=== PATIENT | female | born 1990 | race Caucasian/White ===

== ENCOUNTER → 2016-06-09 | Outpatient (CLI) | payer BC ==
[~2016-06-09] MED LIST: NAPR550T PO
--- OUTSIDE RECORDS SUMMARY | 2016-06-09 08:09 | XMS REPORT | Continuity of Care Document ---
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 font-family: [place]; font-size:10pt; text-decoration:underline">RR </span><span style="width: 35.18pt; text-indent:0pt; display:inline-block; -ql-jkgvksk-fpmuz:left; -aw- tabstop-pos:205pt"></span><span style="background-color:#ffffff; font-family: [place]; font-size:10pt; text-decoration:underline">MAP </span><span style="width: 26.43pt; text-indent:0pt; display:inline-block; -nk-msaehmc-cmumn:left; -aw- tabstop-pos:255pt"></span><span style="background-color:#ffffff; font-family: [place]; font-size:10pt; text-decoration:underline">O2 Sat </span></p><p style= "margin:0pt"><span style="background-color:#ffffff; font-family:[place]; font-size :10pt">36.6</span><span style="width:37.79pt; text-indent:0pt; display:inline- block; -zn-mdfruig-mmrqb:left; -ru-aroxpht-zxj:55pt"></span><span style= "background-color:#ffffff; font-family:[place]; font-size:10pt">105/60</span>< span style="width:20.94pt; text-indent:0pt; display:inline-block; -aw-tabstop- align:left; -js-zmzivpv-wuq:105pt"></span><span style="background-color:#ffffff ; font-family:[place]; font-size:10pt">58</span><span style="width:40pt; text- indent:0pt; display:inline-block; -nf-jxuobsa-wzcrk:left; -jv-xmaevtv-han:155pt "></span><span style="background-color:#ffffff; font-family:[place]; font-size: 10pt">16</span><span style="width:40pt; text-indent:0pt; display:inline-block; - vp-xhlzzqe-tjewm:left; -ij-ruqutfw-wqt:205pt"></span><span style="width:50pt; text-indent:0pt; display:inline-block; -cx-fdlhbmd-eanrv:left; -cn-wtkhhvu-thg: 255pt"></span><span style="background-color:#ffffff; font-family:[place]; font- size:10pt">100</span></p><p style="margin:0pt"><span style="font-family:[place]; font-size:10pt"> </span></p><p style="margin:0pt"><span style="background- color:#ffffff; font-family:[place]; font-size:10pt">Heart Rate - Pulse Ox: 58 bpm< /span></p><p style="margin:0pt"><span style="background-color:#ffffff; font- family:[place]; font-size:10pt">Oxygen Therapy: Room air </span></p><p style= "margin:0pt"><span style="font-family:[place]; font-size:10pt"></span></p><p style="margin:0pt"><span style="background-color:#ffffff; font-family:[place]; font-size:10pt; text-decoration:underline">Weight </span><span style="width: 94.02pt; text-indent:0pt; display:inline-block; -jx-rhpchde-tdena:left; -aw- tabstop-pos:125pt"></span><span style="background-color:#ffffff; font-family: [place]; font-size:10pt; text-decoration:underline">Height </span><span style= "width:36.19pt; text-indent:0pt; display:inline-block; -gm-odyypff-rirji:left; - vq-rgkmnfb-uee:190pt"></span><span style="background-color:#ffffff; font-family: [place]; font-size:10pt; text-decoration:underline">BMI </span><span style="width: 29.8pt; text-indent:0pt; display:inline-block; -al-wqsvcic-hsdim:left; -aw- tabstop-pos:240pt"></span><span style="background-color:#ffffff; font-family: [place]; font-size:10pt; text-decoration:underline">BSA </span></p><p style= "margin:0pt"><span style="background-color:#ffffff; font-family:[place]; font-size :10pt">64.800 kg (142.86 lbs)</span><span style="width:39.47pt; text-indent:0pt ; display:inline-block; -ge-tmqnlsy-pvxfm:left; -gz-qzvtqge-mzv:125pt"></span>< span style="background-color:#ffffff; font-family:[place]; font-size:10pt">169.2 cm</span><span style="width:29.28pt; text-indent:0pt; display:inline-block; -aw- tabstop-align:left; -sr-rqhaiqx-ixz:190pt"></span><span style="width:50pt; text- indent:0pt; display:inline-block; -ir-jpdpsej-liplp:left; -xm-kkuawpu-mti:240pt "></span></p><p style="margin:0pt"><span style="font-family:[place]; font-size: 10pt"></span></p><p style="margin:0pt"><span style="background-color:#ffffff; font-family:[place]; font-size:10pt">Scale: Stated weight </span></p><p style= "margin:0pt"><span style="background-color:#ffffff; font-family:[place]; font-size :10pt">Current BMI: 23 </span></p><p style="margin:0pt"><span style="font-family :[place]; font-size:10pt"></span></p><p style="line-height:12pt; margin:0pt">< span style="background-color:#ffffff; font-family:[place]; font-size:10pt"> Pulmonary: There are no labored respirations. </span></p><p style="line-height: 12pt; margin:0pt"><span style="background-color:#ffffff; font-family:[place] ; font-size:10pt">Cardiovascular: Rate regular as noted above. </span></p><p style="line-height:12pt; margin:0pt"><span style="background-color:#ffffff; font -family:[place]; font-size:10pt">Psychiatric: The patient is oriented to time, place, and person. Mood and affect are appropriate. </span></p><p style="line- height:12pt; margin:0pt"><span style="background-color:#ffffff; font-family :[place]; font-size:10pt">Gastrointestinal exam: Abdomen is soft, nondistended, without evidence of hepatosplenomegaly, masses, or tenderness.</span></p><p style="line-height:12pt; margin:0pt"><span style="background-color:#ffffff; font -family:[place]; font-size:10pt"></span></p><p style="margin:0pt"><span style= "font-family:[place]; font-size:10pt"></span></p><p style="line-height:12pt; margin:0pt"><span style="background-color:#ffffff; font-family:[place]; font-size: 10pt; font-weight:bold">ASSESSMENT / PLAN: </span></p><p style="margin:0pt">< span style="font-family:[place]; font-size:10pt"></span></p><p style="margin:0pt 0pt 0pt 36pt; text-indent:-18pt"><span style="background-color:#ffffff; font- family:Symbol; font-size:10pt"></span><span style="font:7.0pt '[employer]' "> </span><span style="background-color:#ffffff; font-family: [place]; font-size:10pt">Odynophagia of uncertain etiology</span></p><ul type= "disc" style="margin:0pt; padding-left:0pt"><li style="-ze-fhbs-placzj:'Symbol' ; -wa-weqy-capjfb:normal; -th-urutik-nkzdtt:''; background-color:#ffffff; font- family:serif; font-size:10pt; font-style:normal; rgze-dbfas-bkgiimvp:inside; margin:0pt 0pt 0pt 54pt; text-decoration:none; text-indent:-18pt"><span style= "font:7.0pt '[employer]'"> </span><span style="background-color:#ffffff; font-family:[place]; font-size:10pt">E</span><span style="background-color:#ffffff ; font-family:[place]; font-size:10pt">GD </span></li></ul><p style="line-height: 12pt; margin:0pt"><span style="font-family:[place]; font-size:10pt"></span></p>< p style="margin:0pt 0pt 0pt 36pt"><span style="background-color:#ffffff; font- family:[place]; font-size:10pt">Prior to the time of the procedure above described , I explained to the patient named above and to any person who has consented to the procedure on the patient's behalf, the nature, purpose, benefits, risks, including but not limited to bleeding, infection, perforation, the need for emergency surgery and the chance of missing a lesion, and alternative treatments. I have further discussed possible consequences of the procedure, the principal risks involved and possible complications. </span></p><p style= "margin:0pt 0pt 0pt 36pt"><span style="font-family:[place]; font-size:10pt"></ span></p><p style="margin:0pt 0pt 0pt 36pt"><span style="background-color:# ffffff; font-family:[place]; font-size:10pt">I plan the use of medication to achieve sedation for the period of the procedure with anticipated return to pre- procedure physiological status. I plan to administer medications via: IV. </span ></p><p style="margin:0pt 0pt 0pt 36pt"><span style="background-color:#ffffff; font-family:[place]; font-size:10pt">Post Sedation Plan: Recovery/Home. or Recovery/Inpatient</span></p><p style="line-height:12pt; margin:0pt"><span style="font-family:[place]; font-size:10pt"></span></p><p style="line-height:12pt ; margin:0pt"><span style="background-color:#ffffff; font-family:[place]; font- size:10pt">Co-morbidities:</span></p><p style="margin:0pt 0pt 0pt 36pt; text- indent:-18pt"><span style="background-color:#ffffff; font-family:Symbol; font- size:10pt"></span><span style="font:7.0pt '[employer]'"> </span>< span style="background-color:#ffffff; font-family:[place]; font-size:10pt"> See Problems and past medical history / procedures</span></p><p style="margin: 0pt"><span style="font-family:[place]; font-size:10pt"></span></p><p style= "margin:0pt"><span style="background-color:#ffffff; font-family:[place]; font-size :10pt">ASA: II</span></p><p style="margin:0pt"><span style="font-family:'[employer] [place]'; font-size:12pt"></span></p><p style="margin:0pt"><span style="font- family:'[employer] [place]'; font-size:12pt"> </span></p></div> [Electronically Signed on 11.20.2010 11:04 am]
Ty Jean MD
</br> 11/20/2010 [Electronically Signed on 11.20.2010 11:04 am] Ty Jean MD [facility] Amb Nurs Intake Event Amb Nurs Intake Event 2013 [facility] SMEG-Healthcare Goals 1 SMEG-Healthcare Goals 1 No No No Yes No No No No No Yes 06/07/2013 [facility] Office/Clinic Notes Office/Clinic Notes [facility] [address] [place] [address] PATIENT: SANIA CARBONE MR #: [id number] : 1990 DATE SEEN: 06/07/2013 Chief Complaint Patient here today has a cyst right arm pit. History of Present Illness Still has swelling in the one arm pit, is not doing well. Also here for sebaceous cyst removal under her ear. Doing pretty good otherwise. Review of Systems No recent weight gain or weight loss. No fever or chills. No sleep difficulty. No blurry vision or double vision. No eye pain or ear pain. No ringing in ears. No runny nose, sneezing, bloody nose or sore throat. No hoarseness. No high blood pressure, chest pain, shortness of breath. No dizzy spells. No swelling of feet or ankles. No leg cramps. No wheezing or coughing spells. No night sweats. No shortness of breath on exertion. No heartburn, bloating, belching. No nausea, vomiting, constipation or diarrhea. No rectal bleeding. No burning with urination. No urinary frequency. No vaginal discharge. No breast lumps or pain. No aching muscles or joints. No pain in hands or feet. No weakness or stiffness of joints.No easy bruising. No faintness, numbness, convulsions or tremors. No anemia or swollen lymph nodes. No polydipsia or polyuria. Allergies NKA Current Medications omeprazole 20 mg oral enteric coated capsule (omeprazole), 20 mg, 2 times a day Problems and Past Medical History Active Allergic Rhinitis, Seasonal or NOS Asthma, unspecified Nasal Fracture Primary focal hyperhidrosis of axilla Family History Cardiovascular Past Medical History Heart Disease Medical History: Grandparents High Blood Pressure Medical History: Grandparents Endocrine/Metabolic Past Med Hx Diabetes Medical History: Grandparents Family Status Father: Living Sister 2: Living Mother: Living Paternal Grandfather: Living Paternal Grandmother: Living Maternal Grandfather: Living Maternal Grandmother: Brother 1: Living Gastrointestinal Past Medical Hx Gastrointestinal, Other Medical History: Mother, IBS Genitourinary Past Medical Hx Genitourinary, Other Medical History: Sibling, VURD Immunologic Past Medical History Immunologic, Other Medical History: SCLERODERMA Musculoskeletal Past Medical Hx Arthritis Medical History: Grandparents, Sibling Musculoskeletal, Other Medical History: Sibling, JRA Neurological Past Medical History Frequent Headaches Medical History: Mother, Sibling, MIGRAINES Ocular Past Medical History Cataract Medical History: Grandparents Oncologic Past Medical History Oncologic, Other Medical History: Grandparents, bladder Lymphoma Medical History: Grandparents, CERVICAL CA. Respiratory Past Medical History Asthma Medical History: Sibling Respiratory, Other Medical History: Mother, SLEEP APNEA Family Status Reviewed With Patient: Review complete Procedure History X 2 SURGERIES LT ANKLE Esophagogastroduodenoscopy * at 11/20/2010. Social History Alcohol Use: Not applicable due to age Caffeine Use: Current Caffeine Type: Soda Caffeine Frequency: Weekly Current Tobacco Usage: Denies Recreational Drug Use: Denies Occupation: [employer] Physical Examination TEMP BP Pulse RR MAP O2 Sat 36.2 106/62 104 18 76.67 97 Weight Height BMI BSA 70.3 kg (154.98 lbs) 167.6 cm 25 kg/m2 1.8091 m2 Vital signs: Per chart. General: Well-hydrated, well-developed, well- nourished and in no acute distress. HEENT: Neck supple, no nodes; ears clear; TMs normal; eyes - conjunctivae clear, EOMI, PERRLA, fundi benign. Pharynx: Tongue and uvula midline, no exudate or injection. Chest: Respirations unlabored, lungs are clear. Heart: Regular rate and rhythm without murmur. Abdomen: Soft, nontender, no masses, organomegaly, guarding or rebound. Bowel sounds positive. Extremities: Nontender without edema. Pulses are 2+ and equal. Neurologic: Cranial nerves are intact, no motor or sensory deficits. Cerebellar function is normal. Mental status: Alert, oriented x3, cooperative. Skin: does have a little bit cystic acne. Has a sebaceous cyst under the right auricle, under the lobule. Has excessive sweating right arm pit. Impression 1. 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 2. Sebaceous Cyst (706.2) - presents for removal of cyst, have accomplished without difficulty. Plan Medication changes this visit: New Drysol 20% topical solution, 1 Apply, AT BEDTIME, Quantity: 60, Refills: 11 Risks, benefits of medications and/or treatment options explained. Alternatives and expected outcome discussed. Patient and/or family verbalized understanding. Patient instructed to follow up sooner than directed if new symptoms develop or current symptoms worsen. Otherwise follow up prn. TR: ANDREAS 851 JJ#: [id number] [Electronically Signed on 06.07.2013 11:22 AM]
Maria Teresa Galicia DO
</br> 06/07/2013 [Electronically Signed on 06.07.2013 11:22 AM] Maria Teresa Galicia DO [facility] GI Documents GI Documents < div><p style="margin:0pt"><span style="font-family:[place]; font-size:10pt"></ span></p><p style="margin:0pt"><span style="font-family:[place]; font-size:10pt& quot;>DATE OF SERVICE:</span><span style="background-color:#ffffff; font-family: [place]; font-size:10pt">11.20.2010</span><span style="font-family:[place]; font-size :10pt"> </span></p><p style="margin:0pt"><span style="font-family:[place]; font -size:10pt"></span></p><p style="margin:0pt"><span style="font-family:[place]; font-size:10pt">PREOPERATIVE DIAGNOSIS: </span></p><p style="margin:0pt 0pt 0pt 36pt; text-indent:-18pt"><span style="font-family:Symbol; font-size:10pt"></span ><span style="font:7.0pt '[employer] [place] [employer] [place]'"> </span><span style= "background-color:#ffffff; font-family:[place]; font-size:10pt">Odynophagia (Sx improving on PPI) </span></p><p style="margin:0pt"><span style="font-family: [place]; font-size:10pt"></span></p><p style="margin:0pt"><span style="font- family:[place]; font-size:10pt">POSTOPERATIVE DIAGNOSIS: </span></p><p style= "margin:0pt 0pt 0pt 36pt; text-indent:-18pt"><span style="background-color:# ffffff; font-family:Symbol; font-size:10pt"></span><span style="font:7.0pt '[employer] [place] [employer] [place]'"> </span><span style="background-color:#ffffff; font -family:[place]; font-size:10pt">Mild antral gastritis</span></p><ul type="disc" style="margin:0pt; padding-left:0pt"><li style="-ni-hajw-erdiwb:'Symbol'; -aw- font-weight:normal; -li-lonjeh-pjomtr:''; background-color:#ffffff; font-family: serif; font-size:12pt; font-style:normal; wiko-edxdu-rcdppcam:inside; margin: 0pt 0pt 0pt 54pt; text-decoration:none; text-indent:-18pt"><span style="font: 7.0pt '[employer] [place] [employer] [place]'"> </span><span style="font-family:[place] ; font-size:10pt">B</span><span style="background-color:#ffffff; font-family: [place]; font-size:10pt">x</span></li></ul><p style="margin:0pt 0pt 0pt 36pt; text -indent:-18pt"><span style="font-family:Symbol; font-size:10pt"></span><span style="font:7.0pt '[employer] [place] [employer] [place]'"> </span><span style="font- family:[place]; font-size:10pt">Normal </span><span style="background-color:# ffffff; font-family:[place]; font-size:10pt">esophagus</span></p><p style= "margin:0pt"><span style="font-family:[place]; font-size:10pt"></span></p><p style="margin:0pt"><span style="font-family:[place]; font-size:10pt; font-weight: normal">PROCEDURE</span><span style="font-family:[place]; font-size:10pt; font- weight:bold">: Esophagogastroduodenoscopy to the 3rd part of the duodenum</span> <span style="background-color:#ffffff; font-family:[place]; font-size:10pt; font- weight:bold"> with biopsy</span></p><p style="margin:0pt"><span style="font- family:[place]; font-size:10pt"></span></p><p style="margin:0pt"><span style= "font-family:[place]; font-size:10pt">SEDATION: Demerol 75mg, Versed </span><span style="background-color:#ffffff; font-family:[place]; font-size:10pt">3</span ><span style="font-family:[place]; font-size:10pt">mg.</span></p><p style="margin: 0pt"><span style="font-family:[place]; font-size:10pt"></span></p><p style= "margin:0pt"><span style="font-family:[place]; font-size:10pt">PREOPERATIVE DISCUSSION: Prior to the time of the procedure above described, I explained to the patient named above and to any person who has consented to the procedure on the patient</span><span style="font-family:[place]; font-size:10pt">s behalf, the nature, purpose, risks, and alternative treatments. I have further discussed possible consequences of the procedure, the principal risks involved and possible complications.</span></p><p style="margin:0pt"><span style="font-family :[place]; font-size:10pt"></span></p><p style="margin:0pt"><span style="font- family:[place]; font-size:10pt">DESCRIPTION OF PROCEDURE: Following sedation, the lubricated endoscope was advanced under direct vision through to the 3rd part of the duodenum. The bulb and the 2nd and 3rd parts of the duodenum were evaluated. The scope was withdrawn into the antrum. The prepyloric channel and antrum were evaluated. Retroflexion was then performed with the lesser curvature , greater curvature, fundus, cardia and body being evaluated. The gastroesophageal junction, esophagus and remainder of the esophagus were also evaluated. </span></p><p style="margin:0pt"><span style="font-family:[place]; font -size:10pt"></span></p><p style="margin:0pt"><span style="font-family:[place]; font-size:10pt">The study was significant for: </span></p><p style="margin:0pt 0pt 0pt 36pt; text-indent:-18pt"><span style="background-color:#ffffff; font- family:Symbol; font-size:10pt"></span><span style="font:7.0pt '[employer] [place] [employer]' "> </span><span style="background-color:#ffffff; font-family: [place]; font-size:10pt">Mild antral gastritis</span></p><ul type="disc" style="margin:0pt; padding-left:0pt"><li style="-ki-isir-yzbuhc:'Symbol'; -aw- font-weight:normal; -ha-txyjfk-emnmur:''; background-color:#ffffff; font-family: serif; font-size:12pt; font-style:normal; fjgy-ltflf-hskrtblj:inside; margin: 0pt 0pt 0pt 54pt; text-decoration:none; text-indent:-18pt"><span style="font: 7.0pt '[employer]'"> </span><span style="font- family:[place]; font-size:10pt">B</span><span style="background-color:#ffffff; font-family:[place]; font-size:10pt">x</span></li></ul><p style="margin:0pt">< span style="font-family:[place]; font-size:10pt">The esophagus </span><span style= "background-color:#ffffff; font-family:[place]; font-size:10pt">was normal.</span> </p><p style="margin:0pt"><span style="font-family:[place]; font-size:10pt"></ span></p><p style="margin:0pt"><span style="font-family:[place]; font-size:10pt"> RECOMMENDATIONS: </span></p><p style="margin:0pt"><span style="font-family:[place] ; font-size:10pt"> </span></p><p style="margin:0pt 0pt 0pt 47.25pt; text-indent:-29.25pt"><span style="font-family:[place]; font-size:10pt; font-style :normal; text-decoration:none">1.</span><span style="font:7.0pt '[employer] '"> </span><span style="font-family:[place]; font-size:10pt">Diet:</ span><span style="background-color:#ffffff; font-family:[place]; font-size:10pt"> Soft</span></p><p style="margin:0pt 0pt 0pt 47.25pt; text-indent:-29.25pt"> <span style="font-family:[place]; font-size:10pt; font-style:normal; text- decoration:none">2.</span><span style="font:7.0pt '[employer]'"> </span><span style="font-family:[place]; font-size:10pt">Follow up:</span ><span style="background-color:#ffffff; font-family:[place]; font-size:10pt"> 4 weeks</span></p><p style="margin:0pt 0pt 0pt 47.25pt; text-indent:-29.25pt">< span style="font-family:[place]; font-size:10pt; font-style:normal; text- decoration:none">3.</span><span style="font:7.0pt '[employer]'"> </span><span style="background-color:#ffffff; font-family:[place]; font- size:10pt">Prilosec OTC 20mg po daily for 6 weeks</span></p><p style="margin:0pt "><span style="font-family:[place]; font-size:10pt"></span></p><p style="margin: 0pt"><span style="font-family:[place]; font-size:10pt">cc:</span><span style= "background-color:#ffffff; font-family:[place]; font-size:10pt"> Maria Teresa Galicia</span ></p></div> [Electronically Signed on 11.20.2010 11:26 am]
Ty Jean MD
</br> 11/20/2010 [Electronically Signed on 11.20.2010 11:26 am] Ty Jean MD [facility] Procedure Reports Procedure Reports [facility] [address] [id number] PATIENT: SANIA CARBONE MR #: [id number] : 1990 DATE SEEN: 06/07/2013 Procedure: 4 mm. punch biopsy sebaceous cyst under right auricle After informed consent received was sterilely prepped in usual fashion. Anesthetized with 0.5% Marcaine with Epinephrine. Using a 4 mm. punch biopsy a full thickness biopsy was taken and encompassed actually two small cysts and a couple of other sebaceous glands that were hypertrophied were removed with further sharp dissection, sharp curved Iris scissors. No complications noted. No bleeding. It was irrigated. No further cysts were seen. It was then closed with two 4-0 Prolene sutures in simple interrupted fashion. Sutures out in a week. No tissue for pathology. Aftercare instructions given. TR: ANDREAS 851 JJ#: [id number] [Electronically Signed on 06.07.2013 11:22 AM]
Maria Teresa Galicia DO
</br> 06/07/2013 [Electronically Signed on 06.07.2013 11:22 AM] Maria Teresa Galicia DO [facility] GI Documents GI Documents [facility] GI Patient Name: Sania Carbone Procedure Date: 11/20/2010 10:49:34 AM Date of : 1990 Age: 20 Gender: Female Attending MD: TY DIAZ MD, FACS Procedure: Upper GI endoscopy with biopsy Indications: Odynophagia Referring MD: MARIA TERESA GALICIA DO Medicines: Midazolam 3 mg IV, Meperidine 75 mg IV Complications: No immediate complications Procedure: -Prior to the procedure, a History and Physical was performed. Patient medications, allergies and sensitivities have been reviewed. The risks and benefits of the procedure and the sedation options and risks were discussed with the patient and informed consent was obtained. Pre-procedure physical examination revealed no contraindictions to sedation. -After obtaining informed consent, the endoscope was passed under direct vision. Throughout the procedure, the patient's blood pressure, pulse, and oxygen saturations were monitored continuously. The Endoscope was introduced through the mouth, and advanced to the third part of duodenum. The upper GI endoscopy was accomplished without difficulty. The patient tolerated the procedure well. Findings: Localized mild inflammation was found in the gastric antrum. Biopsies were taken with a cold forceps for histology. The esophagus was normal. The examined duodenum was normal. Impression: - Gastritis. This was biopsied. - Normal esophagus. - Normal examined duodenum. Recommendation: - Use Prilosec (omeprazole) at 20 mg by mouth once a day for 6 weeks. - Return to endoscopist in 4 weeks. TY JEAN MD, FACS Signed Date: 11/20/2010 11:22:41 AM Number of Addenda: 0 This report has been signed electronically. Procedure images and/or a copy of the operative report have been provided to the patient. Note Initiated On: 11/20/2010 10:49:34 AM 11/20/2010 [facility] Amb Nurs Intake w Hx Event Amb Nurs Intake w Hx Event 06/02/2013 [facility] SMEG-Healthcare Goals 1 SMEG-Healthcare Goals 1 No No No Yes No No No No No Yes 06/02/2013 [facility] Level of Functioning Grid-Clinic Level of Functioning Grid-Clinic 06/02/2013 [facility] Ambulatory Depart Summary Ambulatory Depart Summary [facility] [address] [place] [address] [phone] PERSON INFORMATION Name SANIA CARBONE Age 23 Years 1990 12:00 AM Sex Female Language Swedish PCP Maria Teresa Galicia, DO Marital Status Single Time Zone Visit Id Visit Reason LUMP UNDER EAR/TERE UNDER ONE ARM PIT Specialty Enc Type [facility] Med Service PHYSOFF-Physician Office Referred by [facility] Discharge Process Discharge Tracking Id Checkout Checkin Acuity Dispo Type Arrival 06/02/2013 9:43 AM Reg Status LOS Address: [address] [place] [id number] PHYS DOC NOTES PROVIDER INFORMATION VITALS INFORMATION Height: 5ft 6.0in Weight: 153.00 lbs (BMI: 24.7) Temp: 97.2 F Heart Rate: 69 Respiratory: 18 O2 Sat: 99 BP: 110/62 LOCATION INFORMATION Arrival Nurse Unit Room Bed 06/02/2013 9:47 AM ORDERS INFORMATION Start Time Order Type Status Stop Time Provider 06/02/2013 10:29 AM Office Visit Level 4 Est - 94585 Evaluation and Management Completed 06/02/2013 10:29 AM Maria Teresa Galicia DO 06/02/2013 10:33 AM Flu Trivalent Vaccine, 3 Yrs & Older W/Phy Nursing Program Manager [facility] Completed 06/02/2013 10:35 AM Maria Teresa Galicia DO 06/02/2013 10:33 AM Flu Trivalent Vaccine, 3 Yrs & Older -Clinic Clinic Charge Completed 06/02/2013 10:34 AM Maria Teresa Galicia DO 06/02/2013 10:33 AM First Component Immunization Admin w/Phy Nursing Program Manager, Any Route 18 & Under - Clinic Clinic Charge Completed 06/02/2013 10:34 AM Maria Teresa Galicia DO MEDICAL INFORMATION Allergy Info: NKA HOME MEDICATIONS omeprazole 20 mg oral enteric coated capsule 20 mg, Oral, 2 times a day, 90 Day(s), 3 Refills Not taking: didnt need it anymore You have indicated that you are not taking one or more of your medications as prescribed. Please contact your prescribing provider as soon as possible to discuss these medications. DISCHARGE INFORMATION Discharge Disposition: Discharge Location: PATIENT EDUCATION INFORMATION Instructions: Understanding Neck Problems; SEBACEOUS CYST Follow up: DIAGNOSIS Cervical Strain; Concussion; Sebaceous Cyst; Vaccination for Influenza 06/02/2013 [facility] Office/Clinic Notes Office/Clinic Notes Patient: SANIA CARBONE Age: 20 years Sex: Female : 1990 Associated Diagnoses: None Author: Ava Walter FNP-BC Health Status Allergies: . Allergic Reactions (All) NKA Current medications: . Prescriptions and Home Medications omeprazole (omeprazole 20 mg oral enteric coated capsule), 20 mg, 1 Cap, PO, BID , 180 Cap Problem list: . Medical Allergic Rhinits, Seasonal or NOS / ICD-9-CM 477.9 / Confirmed Asthma, unspecified / ICD-9-CM 493.90 / Confirmed Nasal Fracture / ICD-9-CM 802.0 / Confirmed Subjective Problem: HPI: Pt here today with sore throat x 4 days and sinus DC. She had strep a couple weeks ago and was treated with Pen VK and did get better but now sx have returned. Objective VS/Measurements Documented vital signs: Blood Pressure ( Systolic 102 mmHg, Diastolic 56 mmHg ), Pulse ( 84 beats per min ), Respiration ( Within normal limits ), Temperature ( Oral 98.4 degrees Fahrenheit ) Point of care testing General: Alert and oriented, No acute distress. Integumentary: Warm, Dry. Eye: Normal conjunctiva. HENT: Normocephalic, Tympanic membranes are clear, Oral mucosa is moist. Throat: Tonsils ( Bilateral tonsils, Cryptic, Enlarged, Erythematous ), Pharynx ( Posterior, Erythematous ). Neck: Supple, No thyromegaly. Lymph nodes: Bilateral, Anterior triangle, Soft, Tender. Cardiovascular: Normal rate, Regular rhythm, No murmur. Respiratory: Lungs are clear to auscultation, Respirations are non-labored. Musculoskeletal: Normal range of motion, Normal gait. Psychiatric: Cooperative, Appropriate mood & affect. Plan Diagnosis Acute pharyngitis NOS (ICD9 462). Tonsillitis NOS (ICD9 463). Plan PowerOrders. Pharmacy: [facility] Z-Sp (Ordered): See Instructions, as directed on package labeling, 6 Tab PowerOrders. Patient Care -Clinic: [facility] Rapid Strep -Clinic (Ordered): 03/17/2011 10:59, Acute pharyngitis NOS [facility] Quick Care Visits -Clinic (Completed): 03/17/2011 10:59, Tonsillitis NOS Counseled: Patient, Regarding diagnosis, Regarding treatment, Regarding medications. Patient Instructions: Increase fluids and rest. If symptoms increase or do not improve, follow up with PCP, UCC or ER in 2-3 days.. 03/17/2011 [facility] Office/Clinic Notes Office/Clinic Notes <div><p style="margin:0pt; text-align:center"><span style= "background-color:#ffffff; font-family:[place]; font-size:10pt; font-weight:bold"> [facility]</span></p><p style="margin:0pt; text-align: center"><span style="background-color:#ffffff; font-family:[place]; font-size:10pt ; font-weight:bold">[facility]</span></p><p style="margin:0pt; text -align:center"><span style="background-color:#ffffff; font-family:[place]; font- size:10pt; font-weight:bold">[place] [address]</span></p><p style="margin: 0pt; text-align:center"><span style="background-color:#ffffff; font-family:[place] ; font-size:10pt; font-weight:bold">[phone] </span></p><p style="margin:0pt; text-align:center"><span style="font-family:[place]; font-size: 10pt; font-weight:bold"></span></p><p style="margin:0pt"><span style= "background-color:#ffffff; font-family:[place]; font-size:10pt">PATIENT: SANIA CARBONE</span></p><p style="margin:0pt"><span style="background-color:# ffffff; font-family:[place]; font-size:10pt">MR #: [id number]</span></p><p style= "margin:0pt"><span style="background-color:#ffffff; font-family:[place]; font -size:10pt"> </span></p><p style="margin:0pt"><span style= "background-color:#ffffff; font-family:[place]; font-size:10pt">: 11/03/ 1990</span></p><p style="margin:0pt"><span style="background-color:#ffffff; font -family:[place]; font-size:10pt">DATE SEEN: 12/22/2010</span></p><p style="margin: 0pt"><span style="font-family:[place]; font-size:10pt"></span></p><p style= "margin:0pt"><span style="background-color:#ffffff; font-family:[place]; font-size :10pt; font-weight:bold">Chief Complaint</span></p><p style="margin:0pt"><span style="background-color:#ffffff; font-family:[place]; font-size:10pt">Patient is here today for possible fever and sore throat.</span></p><p style="margin:0pt "><span style="font-family:[place]; font-size:10pt"></span></p><p style="margin: 0pt"><span style="font-family:[place]; font-size:10pt"></span></p><p style= "margin:0pt"><span style="background-color:#ffffff; font-family:[place]; font-size :10pt; font-weight:bold">History of Present Illness</span></p><p style= "margin:0pt"><span style="background-color:#ffffff; font-family:[place]; font-size :10pt">S</span><span style="background-color:#ffffff; font-family:[place]; font- size:10pt">arajose is sick, 3 days of not able to swallow, throat is just killing her. Fever, little cough, little headache, arthralgias, myalgias, had no vomiting, no diarrhea, no rash. Has been on Doxycycline for acne. No one else is ill around her. Has been nauseated though and has abdominal pain. </span></p> <p style="margin:0pt"><span style="font-family:[place]; font-size:10pt"></span></ p><p style="margin:0pt"><span style="background-color:#ffffff; font-family: [place]; font-size:10pt; text-decoration:underline">Pain Assessment</span></p><p style="margin:0pt"><span style="background-color:#ffffff; font-family:[place]; font-size:10pt">Cognitive Status: Independent, decisions consistent/reasonable</ span></p><p style="margin:0pt"><span style="background-color:#ffffff; font- family:[place]; font-size:10pt">Intensity: 8</span></p><p style="margin:0pt">< span style="background-color:#ffffff; font-family:[place]; font-size:10pt"> Location: Throat</span></p><p style="margin:0pt"><span style="font-family:[place] ; font-size:10pt"></span></p><p style="margin:0pt"><span style="background- color:#ffffff; font-family:[place]; font-size:10pt; font-weight:bold">Review of Systems </span></p><p style="margin:0pt"><span style="background-color:#ffffff; font-family:[place]; font-size:10pt">No recent weight gain or weight loss. No sleep difficulty. No blurry vision or double vision. No eye pain or ear pain. No ringing in ears. No runny nose, sneezing, bloody nose. No hoarseness. No high blood pressure, chest pain, shortness of breath. No dizzy spells. No swelling of feet or ankles. No leg cramps. No wheezing spells. No night sweats. No shortness of breath on exertion. No heartburn, bloating, belching. No nausea , vomiting, constipation or diarrhea. No rectal bleeding. No burning with urination. No urinary frequency. No vaginal discharge. No breast lumps or pain. No aching muscles or joints. No pain in hands or feet. No weakness or stiffness of joints. No itching or burning of skin. No easy bruising. No changes in moles. No faintness, numbness, convulsions or tremors. No anemia or swollen lymph nodes. No polydipsia or polyuria.</span></p><p style="margin:0pt"><span style="font-family:[place]; font-size:10pt"></span></p><p style="margin:0pt">< span style="background-color:#ffffff; font-family:[place]; font-size:10pt; font- weight:bold">Allergies</span></p><p style="margin:0pt"><span style="background- color:#ffffff; font-family:[place]; font-size:10pt">NKA</span></p><p style="margin :0pt"><span style="font-family:[place]; font-size:10pt"></span></p><p style=&quot ;margin:0pt"><span style="background-color:#ffffff; font-family:[place]; font-size :10pt; font-weight:bold">Current Medications</span></p><p style="margin:0pt">< span style="background-color:#ffffff; font-family:[place]; font-size:10pt"> doxycycline hyclate 100 mg oral capsule (doxycycline), 100 mg 1 Cap, Every 24 hours</span></p><p style="margin:0pt"><span style="background-color:#ffffff; font-family:[place]; font-size:10pt">omeprazole 20 mg oral enteric coated capsule (omeprazole), 20 mg 1 Cap, 2 times a day</span></p><p style="margin:0pt"><span style="font-family:[place]; font-size:10pt"></span></p><p style="margin:0pt">< span style="background-color:#ffffff; font-family:[place]; font-size:10pt; font- weight:bold">Problems and Past Medical History</span></p><p style="margin:0pt "><span style="background-color:#ffffff; font-family:[place]; font-size:10pt; text -decoration:underline">Active</span></p><p style="margin:0pt"><span style= "background-color:#ffffff; font-family:[place]; font-size:10pt">Allergic Rhinitis , Seasonal or NOS</span></p><p style="margin:0pt"><span style="background-color: #ffffff; font-family:[place]; font-size:10pt">Asthma, unspecified</span></p><p style="margin:0pt"><span style="background-color:#ffffff; font-family:[place]; font-size:10pt">Nasal Fracture</span></p><p style="margin:0pt"><span style="font -family:[place]; font-size:10pt"></span></p><p style="margin:0pt"><span style= "background-color:#ffffff; font-family:[place]; font-size:10pt; font-weight:bold"> Family History</span></p><p style="margin:0pt"><span style="background-color:# ffffff; font-family:[place]; font-size:10pt; text-decoration:underline">Oncologic Past Medical History</span></p><p style="margin:0pt"><span style="background- color:#ffffff; font-family:[place]; font-size:10pt">Lymphoma Medical History: Grandparents, CERVICAL CA.</span></p><p style="margin:0pt"><span style= "background-color:#ffffff; font-family:[place]; font-size:10pt">Oncologic, Other Medical History: Grandparents, bladder</span></p><p style="margin:0pt"><span style="background-color:#ffffff; font-family:[place]; font-size:10pt; text- decoration:underline">Immunologic Past Medical History</span></p><p style= "margin:0pt"><span style="background-color:#ffffff; font-family:[place]; font-size :10pt">Immunologic, Other Medical History: SCLERODERMA</span></p><p style= "margin:0pt"><span style="background-color:#ffffff; font-family:[place]; font-size :10pt; text-decoration:underline">Neurological Past Medical History</span></p>< p style="margin:0pt"><span style="background-color:#ffffff; font-family:[place]; font-size:10pt">Frequent Headaches Medical History: Mother, Sibling, MIGRAINES</span></p><p style="margin:0pt"><span style="background-color:#ffffff ; font-family:[place]; font-size:10pt; text-decoration:underline">Endocrine/ Metabolic Past Med Hx</span></p><p style="margin:0pt"><span style="background- color:#ffffff; font-family:[place]; font-size:10pt">Diabetes Medical History: Grandparents</span></p><p style="margin:0pt"><span style="background-color:# ffffff; font-family:[place]; font-size:10pt; text-decoration:underline"> Musculoskeletal Past Medical Hx</span></p><p style="margin:0pt"><span style= "background-color:#ffffff; font-family:[place]; font-size:10pt">Arthritis Medical History: Grandparents, Sibling</span></p><p style="margin:0pt"><span style= "background-color:#ffffff; font-family:[place]; font-size:10pt">Musculoskeletal, Other Medical History: Sibling, JRA</span></p><p style="margin:0pt"><span style= "background-color:#ffffff; font-family:[place]; font-size:10pt; text-decoration: underline">Genitourinary Past Medical Hx</span></p><p style="margin:0pt"><span style="background-color:#ffffff; font-family:[place]; font-size:10pt"> Genitourinary, Other Medical History: Sibling, VURD</span></p><p style="margin: 0pt"><span style="background-color:#ffffff; font-family:[place]; font-size:10pt; text-decoration:underline">Gastrointestinal Past Medical Hx</span></p><p style= "margin:0pt"><span style="background-color:#ffffff; font-family:[place]; font-size :10pt">Gastrointestinal, Other Medical History: Mother, IBS</span></p><p style= "margin:0pt"><span style="background-color:#ffffff; font-family:[place]; font-size :10pt; text-decoration:underline">Respiratory Past Medical History</span></p><p style="margin:0pt"><span style="background-color:#ffffff; font-family:[place]; font-size:10pt">Asthma Medical History: Sibling</span></p><p style="margin:0pt"> <span style="background-color:#ffffff; font-family:[place]; font-size:10pt"> Respiratory, Other Medical History: Mother, SLEEP APNEA</span></p><p style= "margin:0pt"><span style="background-color:#ffffff; font-family:[place]; font-size :10pt; text-decoration:underline">Cardiovascular Past Medical History</span></p> <p style="margin:0pt"><span style="background-color:#ffffff; font-family:[place]; font-size:10pt">Heart Disease Medical History: Grandparents</span></p><p style= "margin:0pt"><span style="background-color:#ffffff; font-family:[place]; font-size :10pt">High Blood Pressure Medical History: Grandparents</span></p><p style= "margin:0pt"><span style="background-color:#ffffff; font-family:[place]; font-size :10pt; text-decoration:underline">Ocular Past Medical History</span></p><p style ="margin:0pt"><span style="background-color:#ffffff; font-family:[place]; font- size:10pt">Cataract Medical History: Grandparents</span></p><p style="margin:0pt "><span style="font-family:[place]; font-size:10pt"></span></p><p style="margin: 0pt"><span style="background-color:#ffffff; font-family:[place]; font-size:10pt; font-weight:bold">Procedure History</span></p><p style="margin:0pt"><span style= "background-color:#ffffff; font-family:[place]; font-size:10pt">X 2 SURGERIES LT ANKLE</span></p><p style="margin:0pt"><span style="background-color:#ffffff; font-family:[place]; font-size:10pt">Esophagogastroduodenoscopy * at 11/20/2010.</ span></p><p style="margin:0pt"><span style="font-family:[place]; font-size:10pt">& #xa0;</span></p><p style="margin:0pt"><span style="background-color:#ffffff; font-family:[place]; font-size:10pt; font-weight:bold">Social History</span></p>< p style="margin:0pt"><span style="background-color:#ffffff; font-family: [place]; font-size:10pt">Current Tobacco Usage: Denies</span></p><p style="margin: 0pt"><span style="background-color:#ffffff; font-family:[place]; font-size:10pt"> Caffeine Use: Current</span></p><p style="margin:0pt"><span style="background- color:#ffffff; font-family:[place]; font-size:10pt">Caffeine Type: Soda</span>< /p><p style="margin:0pt"><span style="background-color:#ffffff; font-family: [place]; font-size:10pt">Caffeine Frequency: Weekly</span></p><p style="margin:0pt "><span style="background-color:#ffffff; font-family:[place]; font-size:10pt"> Recreational Drug Use: Denies</span></p><p style="margin:0pt"><span style= "background-color:#ffffff; font-family:[place]; font-size:10pt">Alcohol Use: Not applicable due to age</span></p><p style="margin:0pt"><span style="font-family: [place]; font-size:10pt"></span></p><p style="margin:0pt"><span style="background -color:#ffffff; font-family:[place]; font-size:10pt; font-weight:bold">Physical Examination</span></p><p style="margin:0pt"><span style="background-color:# ffffff; font-family:[place]; font-size:10pt; text-decoration:underline">TEMP </ span><span style="width:25.46pt; text-indent:0pt; display:inline-block; -aw- tabstop-align:left; -pw-pduxjuq-vpf:55pt"></span><span style="background-color:# ffffff; font-family:[place]; font-size:10pt; text-decoration:underline">BP </span> <span style="width:36.44pt; text-indent:0pt; display:inline-block; -aw-tabstop- align:left; -uu-oyycryd-qfr:105pt"></span><span style="background-color:#ffffff ; font-family:[place]; font-size:10pt; text-decoration:underline">Pulse </span>< span style="width:27.08pt; text-indent:0pt; display:inline-block; -aw-tabstop- align:left; -ot-kyfxevb-aon:155pt"></span><span style="background-color:#ffffff ; font-family:[place]; font-size:10pt; text-decoration:underline">RR </span><span style="width:35.18pt; text-indent:0pt; display:inline-block; -eu-alsxiif-ourcr: left; -kz-loxybek-rpd:205pt"></span><span style="background-color:#ffffff; font- family:[place]; font-size:10pt; text-decoration:underline">MAP </span><span style="width:26.43pt; text-indent:0pt; display:inline-block; -yp-oedclpb-ilpiu: left; -eo-mqgyzno-ipe:255pt"></span><span style="background-color:#ffffff; font- family:[place]; font-size:10pt; text-decoration:underline">O2 Sat </span></p><p style="margin:0pt"><span style="background-color:#ffffff; font-family:[place]; font-size:10pt">39.1</span><span style="width:37.79pt; text-indent:0pt; display: inline-block; -ao-adifdhw-nidbs:left; -ix-lmnydqn-yjm:55pt"></span><span style= "background-color:#ffffff; font-family:[place]; font-size:10pt">112/72</span>< span style="width:20.94pt; text-indent:0pt; display:inline-block; -aw-tabstop- align:left; -is-jvtdtox-ynk:105pt"></span><span style="background-color:#ffffff ; font-family:[place]; font-size:10pt">135</span><span style="width:35pt; text- indent:0pt; display:inline-block; -ka-kriycom-trjgi:left; -zl-olvulsk-ywo:155pt "></span><span style="background-color:#ffffff; font-family:[place]; font-size: 10pt">18</span><span style="width:40pt; text-indent:0pt; display:inline- block; -kv-udgxipl-gumji:left; -wl-werrrqm-umn:205pt"></span><span style= "background-color:#ffffff; font-family:[place]; font-size:10pt">85.33</span><span style="width:27.79pt; text-indent:0pt; display:inline-block; -pl-wmqagak-qpstk: left; -ld-dgbanbu-xrn:255pt"></span><span style="background-color:#ffffff; font- family:[place]; font-size:10pt">96</span></p><p style="margin:0pt"><span style= "font-family:[place]; font-size:10pt"></span></p><p style="margin:0pt"><span style="background-color:#ffffff; font-family:[place]; font-size:10pt">Blood Pressure Location: Right arm </span></p><p style="margin:0pt"><span style="font- family:[place]; font-size:10pt"></span></p><p style="margin:0pt"><span style ="background-color:#ffffff; font-family:[place]; font-size:10pt; text-decoration: underline">Weight </span><span style="width:94.02pt; text-indent:0pt; display: inline-block; -ps-pcledvd-mkmpb:left; -tb-xvrkkrv-quq:125pt"></span><span style= "background-color:#ffffff; font-family:[place]; font-size:10pt; text-decoration: underline">Height </span><span style="width:36.19pt; text-indent:0pt; display: inline-block; -na-amyfbxw-aisne:left; -kk-fjwkdqc-lww:190pt"></span><span style= "background-color:#ffffff; font-family:[place]; font-size:10pt; text-decoration: underline">BMI </span><span style="width:29.8pt; text-indent:0pt; display:inline -block; -qs-ndairgp-ffzhz:left; -zv-ftxqkwc-ccz:240pt"></span><span style= "background-color:#ffffff; font-family:[place]; font-size:10pt; text-decoration: underline">BSA </span></p><p style="margin:0pt"><span style="background-color:# ffffff; font-family:[place]; font-size:10pt">64.700 kg (142.64 lbs)</span><span style="width:39.47pt; text-indent:0pt; display:inline-block; -bs-hvzcacp-rcxfp: left; -sk-mzzgmqx-snh:125pt"></span><span style="background-color:#ffffff; font- family:[place]; font-size:10pt">168.9 cm</span><span style="width:29.28pt; text- indent:0pt; display:inline-block; -lw-slgncrs-brpme:left; -zc-bsocsmf-otv:190pt "></span><span style="background-color:#ffffff; font-family:[place]; font-size: 10pt">22.7</span><span style="width:32.79pt; text-indent:0pt; display:inline- block; -ub-dgplxyr-axihn:left; -zg-fqsgbqq-buv:240pt"></span><span style= "background-color:#ffffff; font-family:[place]; font-size:10pt">1.7423 m2</span&gt ;</p><p style="margin:0pt"><span style="font-family:[place]; font-size:10pt"></ span></p><p style="margin:0pt"><span style="background-color:#ffffff; font- family:[place]; font-size:10pt">Vital signs: Per chart. General: Well-hydrated, well-developed, well-nourished and in no acute distress. HEENT: Neck supple, no nodes; ears clear; TMs normal; eyes - conjunctivae clear, EOMI, PERRLA, fundi benign. Pharynx: Tongue and uvula midline, </span><span style="background-color: #ffffff; font-family:[place]; font-size:10pt">massive, </span><span style= "background-color:#ffffff; font-family:[place]; font-size:10pt">enlarged, injec</ span><span style="background-color:#ffffff; font-family:[place]; font-size:10pt"> jj tonsils with exudate. Anterior nodes, little posterior lymphadenopathy. </ span><span style="background-color:#ffffff; font-family:[place]; font-size:10pt"> Chest: Respirations unlabored, lungs are clear. Heart: Regular rate and rhythm without murmur. Abdomen: Soft, nontender, no masses, guarding or rebound. </span ><span style="background-color:#ffffff; font-family:[place]; font-size:10pt"> Little bit enlargement of liver. </span><span style="background-color:#ffffff; font-family:[place]; font-size:10pt">Bowel sounds positive. Extremities: Nontender without edema. Pulses are 2+ and equal. Neurologic: Cranial nerves are intact, no motor or sensory deficits. Cerebellar function is normal. Mental status: Alert, oriented x3, cooperative. Skin: Without rash.</span></p><p style= "margin:0pt"><span style="font-family:[place]; font-size:10pt"></span></p><p style="margin:0pt"><span style="background-color:#ffffff; font-family:[place]; font-size:10pt; font-weight:bold">Impression</span></p><p style="margin:0pt">< span style="background-color:#ffffff; font-family:[place]; font-size:10pt"> Tonsillitis NOS (463)</span><span style="background-color:#ffffff; font-family: [place]; font-size:10pt"> exudative </span></p><p style="margin:0pt"><span style= "background-color:#ffffff; font-family:[place]; font-size:10pt">DEHYDRATION ( 276.51)</span></p><p style="margin:0pt"><span style="background-color:#ffffff; font-family:[place]; font-size:10pt">Lymphadenopathy (785.6)</span></p><p style= "margin:0pt"><span style="background-color:#ffffff; font-family:[place]; font-size :10pt">HEPATOMEGALY (789.1)</span></p><p style="margin:0pt"><span style= "background-color:#ffffff; font-family:[place]; font-size:10pt">Acute pharyngitis NOS (462)</span><span style="background-color:#ffffff; font-family:[place]; font- size:10pt"> - strep test negative</span></p><p style="margin:0pt"><span style= "font-family:[place]; font-size:10pt"></span></p><p style="margin:0pt"><span style="font-family:[place]; font-size:10pt"></span></p><p style="margin:0pt">< span style="font-family:[place]; font-size:10pt"></span></p><p style="margin:0pt "><span style="background-color:#ffffff; font-family:[place]; font-size:10pt; font -weight:bold">Plan</span></p><p style="margin:0pt"><span style="background-color :#ffffff; font-family:[place]; font-size:10pt; font-weight:bold">Medication changes this visit:</span></p><p style="margin:0pt"><span style="background- color:#ffffff; font-family:[place]; font-size:10pt; text-decoration:underline">New </span></p><p style="margin:0pt"><span style="background-color:#ffffff; font- family:[place]; font-size:10pt">Lortab Elixir 7.5 mg-500 mg/15 mL oral elixir, 15 mL, PRN, Q6H, Quantity: 240, Refills: 0</span></p><p style="margin:0pt">< span style="background-color:#ffffff; font-family:[place]; font-size:10pt"> azithromycin 500 mg oral tablet, 500 mg=1 Tab, daily, 6 Day(s), Quantity: 6, Refills: 0</span></p><p style="margin:0pt"><span style="font-family:[place]; font- size:10pt"></span></p><p style="margin:0pt"><span style="background-color:# ffffff; font-family:[place]; font-size:10pt; font-weight:bold">Orders this visit:< /span></p><p style="margin:0pt"><span style="background-color:#ffffff; font- family:[place]; font-size:10pt">-Auto Diff</span></p><p style="margin:0pt">< span style="background-color:#ffffff; font-family:[place]; font-size:10pt">-RBC Morphology</span></p><p style="margin:0pt"><span style="background-color:#ffffff ; font-family:[place]; font-size:10pt">CBC with Diff</span></p><p style="margin: 0pt"><span style="background-color:#ffffff; font-family:[place]; font-size:10pt"> CMV IgG Titer</span></p><p style="margin:0pt"><span style="background-color:# ffffff; font-family:[place]; font-size:10pt">CMV IgM Titer</span></p><p style= "margin:0pt"><span style="background-color:#ffffff; font-family:[place]; font-size :10pt">Chem 12</span></p><p style="margin:0pt"><span style="background-color:# ffffff; font-family:[place]; font-size:10pt">ESR.</span></p><p style="margin:0pt"> <span style="background-color:#ffffff; font-family:[place]; font-size:10pt"> [place]</span></p><p style="margin:0pt"><span style="background-color:# ffffff; font-family:[place]; font-size:10pt">Mononucleosis</span></p><p style= "margin:0pt"><span style="background-color:#ffffff; font-family:[place]; font-size :10pt">IV Discontinue -Clinic</span></p><p style="margin:0pt"><span style= "background-color:#ffffff; font-family:[place]; font-size:10pt">IV Start -Clinic</ span></p><p style="margin:0pt"><span style="background-color:#ffffff; font- family:[place]; font-size:10pt">Rapid Strep-Clinic</span></p><p style="margin:0pt "><span style="background-color:#ffffff; font-family:[place]; font-size:10pt"> methylprednisolone sodium succinate, 125 mg, X 1 DOSE</span></p><p style="margin :0pt"><span style="background-color:#ffffff; font-family:[place]; font-size:10pt"> methylprednisolone, 160 mg, X 1 DOSE</span></p><p style="margin:0pt"><span style ="font-family:[place]; font-size:10pt"></span></p><p style="margin:0pt"><span style="background-color:#ffffff; font-family:[place]; font-size:10pt">Add</span>< span style="background-color:#ffffff; font-family:[place]; font-size:10pt">s up to viral syndrome, probably [place], get labs done on her, for dehydration given LR 2 liters to hydrate her. Given Lortab and Zithromax, given Depo Medrol, Solu Medrol</span></p><p style="margin:0pt"><span style="font-family:[place]; font-size :12pt"></span></p><p style="margin:0pt"><span style="font-family:[place]; font- size:12pt"></span></p><p style="margin:0pt"><span style="background-color:# ffffff; font-family:[place]; font-size:10pt">Risks, benefits of medications and/ or treatment options explained. Alternatives and expected outcome discussed. Patient and/or family verbalized understanding. Patient instructed to follow up sooner than directed if new symptoms develop or current symptoms worsen. Otherwise follow up prn.</span></p><p style="margin:0pt"><span style="font- family:[place]; font-size:10pt"></span></p><p style="margin:0pt"><span style= "font-family:[place]; font-size:10pt"></span></p><p style="margin:0pt"><span style="background-color:#ffffff; font-family:[place]; font-size:10pt">TR:</span>< span style="width:14.48pt; text-indent:0pt; display:inline-block; -aw-tabstop- align:left; -co-jjuumlh-ofl:30pt"></span><span style="background-color:#ffffff; font-family:[place]; font-size:10pt">[facility]</span></p><p style="margin:0pt">< span style="background-color:#ffffff; font-family:[place]; font-size:10pt">DD:</ span><span style="width:12.63pt; text-indent:0pt; display:inline-block; -aw- tabstop-align:left; -bs-zllshhe-sdi:30pt"></span><span style="background-color:# ffffff; font-family:[place]; font-size:10pt">7</span><span style="background-color :#ffffff; font-family:[place]; font-size:10pt"> 951</span></p><p style= "margin:0pt"><span style="background-color:#ffffff; font-family:[place]; font-size :10pt">DT:</span><span style="width:13.31pt; text-indent:0pt; display:inline- block; -ph-nsqshdk-exqva:left; -mi-mxeblgw-hdm:30pt"></span><span style= "background-color:#ffffff; font-family:[place]; font-size:10pt">12/23/2010 14:15</ span></p><p style="margin:0pt"><span style="font-family:[place]; font-size:10pt"> </span></p><p style="margin:0pt"><span style="background-color:#ffffff; font- family:[place]; font-size:10pt">JJ#:</span><span style="width:2.84pt; text-indent :0pt; display:inline-block; -fm-sgittxw-abgzp:left; -zp-vvvdvvg-tsv:30pt"></span ><span style="background-color:#ffffff; font-family:[place]; font-size:10pt"> 1</span><span style="background-color:#ffffff; font-family:[place]; font-size:10pt ">[id number]</span></p><p style="margin:0pt"><span style="font-family:[place]; font -size:10pt"></span></p></div> [Electronically Signed on 12.23.2010 02:35 pm]
Maria Teresa Galicia DO
</br> 12/22/2010 [Electronically Signed on 12.23.2010 02:35 pm] Maria Teresa Galicia DO [facility] Ambulatory Depart Summary Ambulatory Depart Summary [facility] [address] [place] [id number] PERSON INFORMATION Name SANIA CARBONE Age 23 Years 1990 12:00 AM Sex Female Language Swedish PCP Maria Teresa Galicia DO Marital Status Single Time Zone N [id number] Visit Id Visit Reason cyst right axillia Specialty Enc Type [facility] PHYSOFF-Physician Office Referred by [facility] Discharge Process Discharge Tracking Id Checkout Checkin Acuity Dispo Type Arrival 06/07/2013 7:57 AM Reg Status LOS Address: [facility] [place] [address] PHYS DOC NOTES PROVIDER INFORMATION VITALS INFORMATION Height: 5ft 6.0in Weight: 154.98 lbs (BMI: 25) Temp: 97.2 F Heart Rate: 104 Respiratory: 18 O2 Sat: 97 BP: 106/62 LOCATION INFORMATION Arrival Nurse Unit Room Bed 06/07/2013 8:03 AM ORDERS INFORMATION MEDICAL INFORMATION Allergy Info: NKA HOME MEDICATIONS omeprazole 20 mg oral enteric coated capsule 20 mg, Oral, 2 times a day, 90 Day(s), 3 Refills DISCHARGE INFORMATION Discharge Disposition: Discharge Location: PATIENT EDUCATION INFORMATION Instructions: Surgical Site Infections - Teaching Bulletin (CUSTOM); Suture Care Follow up: With: Address: When: Maria Teresa Galicia [address] [place], [place] [id number] Business (1) Comments: DIAGNOSIS 06/07/2013 [facility] Procedure Reports Procedure Reports <div><p style="margin:0pt; text-align:center"><span style="background- color:#ffffff; font-family:[place]; font-size:10pt; font-weight:bold"> [facility]</span></p><p style="margin:0pt; text-align: center"><span style="background-color:#ffffff; font-family:[place]; font-size:10pt ; font-weight:bold">[address] [place] [address]</span></p><p style="margin:0pt; text -align:center"><span style="background-color:#ffffff; font-family:[place]; font- size:10pt; font-weight:bold">[place] [address]</span></p><p style="margin: 0pt; text-align:center"><span style="background-color:#ffffff; font-family:[place] ; font-size:10pt; font-weight:bold">[phone] </span></p><p style="margin:0pt; text-align:center"><span style="font-family:[place]; font-size: 10pt; font-weight:bold"></span></p><p style="margin:0pt"><span style= "background-color:#ffffff; font-family:[place]; font-size:10pt">PATIENT: SANIA CARBONE</span></p><p style="margin:0pt"><span style="background-color:# ffffff; font-family:[place]; font-size:10pt">MR #: [id number]</span></p><p style= "margin:0pt"><span style="background-color:#ffffff; font-family:[place]; font -size:10pt"> </span></p><p style="margin:0pt"><span style= "background-color:#ffffff; font-family:[place]; font-size:10pt">: 1989</span></p><p style="margin:0pt"><span style="background-color:#ffffff; font -family:[place]; font-size:10pt">DATE SEEN: 12/18/2011</span></p><p style="margin: 0pt"><span style="font-family:[place]; font-size:10pt"></span></p><p style= "margin:0pt"><span style="font-family:[place]; font-size:10pt"></span></p><p style="margin:0pt"><span style="background-color:#ffffff; font-family:[place]; font-size:10pt">Here for removal of mole on her chin.</span></p><p style="margin :0pt"><span style="background-color:#ffffff; font-family:[place]; font-size:10pt"> Procedure: after informed consent received, the area was sterilely prepped in the usual fashion. A 5 mm. raised, dome, irregularly textured mole on the chin, looks more irritated and has been irritated. It was sterilely prepped and anesthetized. Using curved Iris scissors it was removed but not quite at the skin line, not wanting to leave any sort of crater on her face. Then using electrodesiccation it was lightly desiccated then with curved Iris scissors it was pared down as close to the skin surface, regular skin line as we could. Tissue was not sent to pathology on this.</span></p><p style="margin:0pt">< span style="background-color:#ffffff; font-family:[place]; font-size:10pt"> Impression: changing skin lesion destruction</span></p><p style="margin:0pt">< span style="font-family:[place]; font-size:10pt"></span></p><p style="margin:0pt "><span style="font-family:[place]; font-size:10pt"></span></p><p style="margin: 0pt"><span style="font-family:[place]; font-size:10pt"></span></p><p style= "margin:0pt"><span style="background-color:#ffffff; font-family:[place]; font-size :10pt">TR:</span><span style="width:14.48pt; text-indent:0pt; display:inline- block; -wn-jathxbf-jfegl:left; -qy-mupwmnf-pql:30pt"></span><span style= "background-color:#ffffff; font-family:[place]; font-size:10pt">[facility]</span></p> <p style="margin:0pt"><span style="background-color:#ffffff; font-family:[facility] [place]; font-size:10pt">DD:</span><span style="width:12.63pt; text-indent:0pt; display: inline-block; -mn-zcvybze-ppnam:left; -hg-wcrcvyh-iir:30pt"></span><span style= "background-color:#ffffff; font-family:[place]; font-size:10pt">12/18/2011 1227</ span></p><p style="margin:0pt"><span style="background-color:#ffffff; font- family:[place]; font-size:10pt">DT:</span><span style="width:13.31pt; text-indent: 0pt; display:inline-block; -yl-ibauvng-ohqkb:left; -ah-scnndlg-fyl:30pt"></span> <span style="background-color:#ffffff; font-family:[place]; font-size:10pt">2011 19:29</span></p><p style="margin:0pt"><span style="font-family:[place]; font- size:10pt"></span></p><p style="margin:0pt"><span style="background-color:# ffffff; font-family:[place]; font-size:10pt">JJ#:</span><span style="width:2.84pt ; text-indent:0pt; display:inline-block; -uv-qhfrfsl-mlkqo:left; -ms-smejubl-klj :30pt"></span><span style="background-color:#ffffff; font-family:[place]; font- size:10pt">[id number]</span></p><p style="margin:0pt"><span style="font-family: [place]; font-size:10pt"></span></p></div> [Electronically Signed on 12.24.2011 06:57 AM]
Maria Teresa Galicia DO
</br> 12/18/2011 [Electronically Signed on 12.24.2011 06:57 AM] Maria Teresa Galicia DO [facility] Procedure Reports Procedure Reports <div><p style="margin:0pt; text-align:center"><span style="background- color:#ffffff; font-family:[place]; font-size:10pt; font-weight:bold"> [facility]</span></p><p style="margin:0pt; text-align: center"><span style="background-color:#ffffff; font-family:[place]; font-size:10pt ; font-weight:bold">[facility]</span></p><p style="margin:0pt; text -align:center"><span style="background-color:#ffffff; font-family:[place]; font- size:10pt; font-weight:bold">[place] [address]</span></p><p style="margin: 0pt; text-align:center"><span style="background-color:#ffffff; font-family:[place] ; font-size:10pt; font-weight:bold">[phone] </span></p><p style="margin:0pt; text-align:center"><span style="font-family:[place]; font-size: 10pt; font-weight:bold"></span></p><p style="margin:0pt"><span style= "background-color:#ffffff; font-family:[place]; font-size:10pt">PATIENT: SANIA CARBONE</span></p><p style="margin:0pt"><span style="background-color:# ffffff; font-family:[place]; font-size:10pt">MR #: [id number]</span></p><p style= "margin:0pt"><span style="background-color:#ffffff; font-family:[place]; font -size:10pt"> </span></p><p style="margin:0pt"><span style= "background-color:#ffffff; font-family:[place]; font-size:10pt">: 1989</span></p><p style="margin:0pt"><span style="background-color:#ffffff; font -family:[place]; font-size:10pt">DATE SEEN: 12/18/2011</span></p><p style="margin: 0pt"><span style="font-family:[place]; font-size:10pt"></span></p><p style= "margin:0pt"><span style="font-family:[place]; font-size:10pt"></span></p><p style="margin:0pt"><span style="background-color:#ffffff; font-family:[place]; font-size:10pt">Has a changing mole right on the waistline, is irritated, also has one on her chin that is irritated, raised, little irregular textured. Maybe a little verrucous. </span></p><p style="margin:0pt"><span style="background- color:#ffffff; font-family:[place]; font-size:10pt">Procedure: after informed consent received the area was sterilely prepped in the usual fashion on the lower back. It was anesthetized with 0.5% Marcaine with Epinephrine, a 5 mm. raised, 5 mm across, little irregularly bordered lesion shave biopsy was accomplished with curved Iris scissors. Base was electrodesiccated and then using Iris scissors again it was made to be as level with the skin surface. Patient tolerated well. Aftercare instructions was given. Tissue to pathology. < /span></p><p style="margin:0pt"><span style="font-family:[place]; font-size:10pt"> </span></p><p style="margin:0pt"><span style="font-family:[place]; font-size:10pt "></span></p><p style="margin:0pt"><span style="background-color:#ffffff; font- family:[place]; font-size:10pt">TR:</span><span style="width:14.48pt; text-indent: 0pt; display:inline-block; -zz-xzyncze-uijcu:left; -wq-zivasdn-jai:30pt"></span> <span style="background-color:#ffffff; font-family:[place]; font-size:10pt"> [facility]</span></p><p style="margin:0pt"><span style="background-color:#ffffff; font-family:[place]; font-size:10pt">DD:</span><span style="width:12.63pt; text- indent:0pt; display:inline-block; -hj-ceulrvm-jryfh:left; -en-gicokrb-nhs:30pt"> </span><span style="background-color:#ffffff; font-family:[place]; font-size:10pt ">12/18/2011 1226 </span></p><p style="margin:0pt"><span style="background-color: #ffffff; font-family:[place]; font-size:10pt">DT:</span><span style="width:13.31pt ; text-indent:0pt; display:inline-block; -wg-vhubzyl-uaziz:left; -kp-oxwawpz-dyj :30pt"></span><span style="background-color:#ffffff; font-family:[place]; font- size:10pt">12/23/2011 19:20</span></p><p style="margin:0pt"><span style="font- family:[place]; font-size:10pt"></span></p><p style="margin:0pt"><span style= "background-color:#ffffff; font-family:[place]; font-size:10pt">JJ#:</span><span style="width:2.84pt; text-indent:0pt; display:inline-block; -tl-nvuznyz-bxdil: left; -mg-tnagkma-csn:30pt"></span><span style="background-color:#ffffff; font- family:[place]; font-size:10pt"> [id number]</span></p><p style="margin:0pt"><span style="font-family:[place]; font-size:10pt"></span></p></div> [Electronically Signed on 12.24.2011 06:57 AM]
Maria Teresa Galicia DO
</br> 12/18/2011 [Electronically Signed on 12.24.2011 06:57 AM] Maria Teresa Galicia DO [facility] Office/Clinic Notes Office/Clinic Notes [address] [place] [address] PATIENT: SANIA CARBONE MR #: [id number] : 1990 DATE SEEN: 06/02/2013 Chief Complaint Patient here today has a lump behind her right ear and is sweating in right arm pit. Additional Information: Patient was ice skating in [place] , a person pulled her down she hit her head on the ice had a large bump still there but is smaller. now her neck hurts. History of Present Illness Has several issues, she fell on the ice injuring her neck, hitting her head, little bit of headache for a couple of days. Has gotten better, neck has been sore, still is but is getting better all the time. Needs to get a flu shot. Also has a cyst under the right ear that keeps getting larger and smaller, larger and smaller. It becomes a little tender and quite visible. Pain Assessment Cognitive Status: Independent, decisions consistent/reasonable Intensity: 5 Location: Other: head and neck Review of Systems No recent weight gain or weight loss. No fever or chills. No sleep difficulty. No blurry vision or double vision. No eye pain or ear pain. No ringing in ears. No runny nose, sneezing, bloody nose or sore throat. No hoarseness. No high blood pressure, chest pain, shortness of breath. No dizzy spells. No swelling of feet or ankles. No leg cramps. No wheezing or coughing spells. No night sweats. No shortness of breath on exertion. No heartburn, bloating, belching. No nausea, vomiting, constipation or diarrhea. No rectal bleeding. No burning with urination. No urinary frequency. No vaginal discharge. No breast lumps or pain. No aching muscles or joints. No pain in hands or feet. No weakness or stiffness of joints. No itching or burning of skin. No easy bruising. No changes in moles. No faintness, numbness, convulsions or tremors. No anemia or swollen lymph nodes. No polydipsia or polyuria. Allergies NKA Current Medications omeprazole 20 mg oral enteric coated capsule (omeprazole), 20 mg, 2 times a day Not taking: didn't need it anymore Problems and Past Medical History Active Allergic Rhinitis, Seasonal or NOS Asthma, unspecified Nasal Fracture Family History Cardiovascular Past Medical History Heart Disease Medical History: Grandparents High Blood Pressure Medical History: Grandparents Endocrine/Metabolic Past Med Hx Diabetes Medical History: Grandparents Family Status Father: Living Sister 2: Living Mother: Living Paternal Grandfather: Living Paternal Grandmother: Living Maternal Grandfather: Living Maternal Grandmother: Brother 1: Living Gastrointestinal Past Medical Hx Gastrointestinal, Other Medical History: Mother, IBS Genitourinary Past Medical Hx Genitourinary, Other Medical History: Sibling, VURD Immunologic Past Medical History Immunologic, Other Medical History: SCLERODERMA Musculoskeletal Past Medical Hx Arthritis Medical History: Grandparents, Sibling Musculoskeletal, Other Medical History: Sibling, JRA Neurological Past Medical History Frequent Headaches Medical History: Mother, Sibling, MIGRAINES Ocular Past Medical History Cataract Medical History: Grandparents Oncologic Past Medical History Oncologic, Other Medical History: Grandparents, bladder Lymphoma Medical History: Grandparents, CERVICAL CA. Respiratory Past Medical History Asthma Medical History: Sibling Respiratory, Other Medical History: Mother, SLEEP APNEA Family Status Reviewed With Patient: Review complete Procedure History X 2 SURGERIES LT ANKLE Esophagogastroduodenoscopy * at 11/20/2010. Social History Alcohol Use: Not applicable due to age Caffeine Use: Current Caffeine Type: Soda Caffeine Frequency: Weekly Current Tobacco Usage: Denies Education: High school Recreational Drug Use: Denies Occupation: [employer] Living Situation: Other: home with family Physical Examination TEMP BP Pulse RR MAP O2 Sat 36.2 110/62 69 18 78 99 Weight Height BMI BSA 69.4 kg (153.00 lbs) 167.6 cm 24.7 kg/m2 1.7975 m2 Vital signs: Per chart. General: Well-hydrated, well-developed, well- nourished and in no acute distress. HEENT: Neck supple, no nodes; ears clear; TMs normal; she has a little bit of swelling in the right parietal occipital region, no motor sensory deficits. eyes - conjunctivae clear, EOMI, PERRLA, fundi benign. Pharynx: Tongue and uvula midline, no exudate or injection. Chest: Respirations unlabored, lungs are clear. Heart: Regular rate and rhythm without murmur. Abdomen: Soft, nontender, no masses, organomegaly, guarding or rebound. Bowel sounds positive. Extremities: Nontender without edema. Pulses are 2+ and equal. She has little bit tenderness paracervical musculature, lower cervical spine, somatic dysfunction, Neurologic: Cranial nerves are intact, no motor or sensory deficits. Cerebellar function is normal. Mental status: Alert, oriented x3, cooperative. Skin: Without rash. She has a small sebaceous cyst under the right ear. Impression 1. Sebaceous Cyst (706.2) - ear - recommend getting it removed, is going back to school, cannot do it today, I do not have the time for the operating room, will just have to get her another day, see if she can give us a couple days lead time and get her onto the schedule 2. Cervical Strain (847.0) - should be fine 3. Concussion (850.9) - should be self limiting 4. Vaccination for Influenza (V04.81) - given flu vaccine 5. Hyperhidrosis right axilla Plan Orders this visit: influenza virus vaccine, inactivated, 0.5 mL, X 1 DOSE Addendum She has been having excessive sweating right arm pit, thats the only problem she has had, no other problems at all, has gone on for a couple weeks. Right arm pit is moist and left one is not, I dont really feel any mass, no supraclavicular mass, cervical mass, or any other abnormality. I really do not know what would do this, manuel have to study a bit and harder about it, I have not really ever had this presenting. Risks, benefits of medications and/or treatment options explained. Alternatives and expected outcome discussed. Patient and/or family verbalized understanding. Patient instructed to follow up sooner than directed if new symptoms develop or current symptoms worsen. Otherwise follow up prn. TR: ANDREAS 1026 / 1038 / 1342 [facility]#: [id number]/ [id number] [Electronically Signed on 06.04.2013 09:09 AM]
Maria Teresa Galicia DO
</br> 06/02/2013 [Electronically Signed on 06.04.2013 09:09 AM] Maria Teresa Galicia DO [facility] Ambulatory Depart Summary Ambulatory Depart Summary <div><p style="margin:0pt; text-align:center"><span style="display:none; font-family:'Times New J Carlos'; font-size:11pt"><%[facility]_ CLINIC_HEADER_UDT%></span><span style="font-family:'times new j carlos'; font- size:12pt; font-weight:bold">[facility]</span> <span style="font-family:'times new j carlos'; font-size:12pt; font-weight:bold"> [address] [place] [address]</span> <span style="font-family:'times new j carlos'; font-size:12pt; font-weight:bold"> [place] [address]</span> <span style="font-family:'times new j carlos'; font-size:12pt; font-weight:bold"> [phone] </span> <span style="font-family:'times new j carlos'; font-size:12pt"></span></p><p style ="margin:0pt; text-align:center"><span style="font-family:'times new j carlos'; font-size:12pt"></span></p><p style="margin:3.65pt 0pt 7.3pt"><span style= "display:none; font-family:'Times New J Carlos'; font-size:11pt"><%END%></span>< span style="font-family:'Times New J Carlos'; font-size:11pt"> </span></p><p style= "margin:0pt"><span style="font-family:'times new j carlos'; font-size:12pt"> < /span></p><p style="margin:0pt"><span style="font-family:arial; font-size:12pt; font-weight:bold">PERSON INFORMATION</span><span style="font-family:'times new j carlos'; font-size:12pt"> </span></p><table cellspacing="0" cellpadding="0" style ="border-collapse:collapse; margin-left:0pt"><tr><td style="vertical-align:top; width:174.25pt"><p style="margin:0pt"><span style="font-family:arial; font- size:8pt; font-weight:bold">Name </span><span style="display:none; font-family: arial; font-size:8pt"><%NAME%></span><span style="font-family:arial; font- size:8pt">SANIA CARBONE</span><span style="display:none; font-family: arial; font-size:8pt"><%END%></span></p></td><td style="vertical-align:top; width:174.25pt"><p style="margin:0pt"><span style="font-family:arial; font-size: 8pt; font-weight:bold">Age </span><span style="display:none; font-family:arial; font-size:8pt"><%AGE%></span><span style="font-family:arial; font-size:8pt"> 20 Years</span><span style="display:none; font-family:arial; font-size:8pt"><% END%></span></p></td><td style="vertical-align:top; width:174.25pt"><p style= "margin:0pt"><span style="font-family:arial; font-size:8pt; font-weight:bold"> </span><span style="display:none; font-family:arial; font-size:8pt"><%%>< /span><span style="font-family:arial; font-size:8pt">1990</span><span style="display:none; font-family:arial; font-size:8pt"><%END%></span></p></td></ tr><tr><td style="vertical-align:top; width:174.25pt"><p style="margin:0pt">< span style="font-family:arial; font-size:8pt; font-weight:bold">Sex </span> <span style="display:none; font-family:arial; font-size:8pt"><%GENDER%></span>< span style="font-family:arial; font-size:8pt">Female</span><span style="display: none; font-family:arial; font-size:8pt"><%END%></span></p></td><td style= "vertical-align:top; width:174.25pt"><p style="margin:0pt"><span style="font- family:arial; font-size:8pt; font-weight:bold">Language </span><span style= "display:none; font-family:arial; font-size:8pt"><%LANGUAGE%></span><span style= "font-family:arial; font-size:8pt">Swedish</span><span style="display:none; font -family:arial; font-size:8pt"><%END%></span></p></td><td style="vertical-align: top; width:174.25pt"><p style="margin:0pt"><span style="font-family:arial; font- size:8pt; font-weight:bold">PCP </span><span style="display:none; font-family: arial; font-size:8pt"><%PCP%></span><span style="font-family:arial; font-size: 8pt">Maria Teresa Galicia, DO</span><span style="display:none; font-family:arial; font -size:8pt"><%END%></span></p></td></tr><tr><td style="vertical-align:top; width:174.25pt"><p style="margin:0pt"><span style="font-family:arial; font-size: 8pt; font-weight:bold">Marital Status </span><span style="display:none; font- family:arial; font-size:8pt"><%MARITALSTAT%></span><span style="font-family: arial; font-size:8pt">Single</span><span style="display:none; font-family:arial ; font-size:8pt"><%END%></span></p></td><td style="vertical-align:top; width: 174.25pt"><p style="margin:0pt"><span style="font-family:arial; font-size: 8pt; font-weight:bold">Phone </span><span style="display:none; font-family:arial ; font-size:8pt"><%PHONE%></span><span style="font-family:arial; font-size:8pt"> </span><span style="display:none; font-family:arial; font-size:8pt "><%END%></span></p></td><td style="vertical-align:top; width:174.25pt"><p style ="margin:0pt"><span style="font-family:arial; font-size:8pt; font-weight:bold"> Time Zone </span><span style="display:none; font-family:arial; font-size:8pt"><% TIMEZONE%></span><span style="display:none; font-family:arial; font-size: 8pt"><%END%></span></p></td></tr><tr><td style="vertical-align:top; width: 174.25pt"><p style="margin:0pt"><span style="font-family:arial; font-size:8pt; font-weight:bold">MRN </span><span style="display:none; font-family:arial; font- size:8pt"><%ALIASPMRN%></span><span style="font-family:arial; font-size:8pt"> [id number]</span><span style="display:none; font-family:arial; font-size:8pt"><%END% ></span></p></td><td style="vertical-align:top; width:174.25pt"><p style="margin :0pt"><span style="font-family:arial; font-size:8pt; font-weight:bold">Visit Id </span><span style="display:none; font-family:arial; font-size:8pt"><% ALIASEVISITID%></span><span style="display:none; font-family:arial; font-size: 8pt"><%END%></span></p></td><td style="vertical-align:top; width:174.25pt"><p style="margin:0pt"><span style="font-family:arial; font-size:8pt; font-weight: bold">Acct# </span><span style="display:none; font-family:arial; font-size:8pt"> <%ALIASEFIN NBR%></span><span style="font-family:arial; font-size:8pt"> [id number]</span><span style="display:none; font-family:arial; font-size:8pt"><% END%></span></p></td></tr><tr><td style="vertical-align:top; width:174.25pt"><p style="margin:0pt"><span style="font-family:arial; font-size:8pt; font-weight: bold">Visit Reason </span><span style="display:none; font-family:arial; font- size:8pt"><%RFV%></span><span style="font-family:arial; font-size:8pt">ACNE</ span><span style="display:none; font-family:arial; font-size:8pt"><%END%></span> </p></td><td style="vertical-align:top; width:174.25pt"><p style="margin:0pt">< span style="font-family:arial; font-size:8pt; font-weight:bold">Specialty </span ><span style="display:none; font-family:arial; font-size:8pt"><%SPECIALTY%></ span><span style="display:none; font-family:arial; font-size:8pt"><%END%></ span></p></td><td style="vertical-align:top; width:174.25pt"><p style="margin: 0pt"><span style="font-family:'times new j carlos'; font-size:12pt"></span></p></ td></tr><tr><td style="vertical-align:top; width:174.25pt"><p style="margin:0pt "><span style="font-family:arial; font-size:8pt; font-weight:bold">Enc Type </ span><span style="display:none; font-family:arial; font-size:8pt"><%ENCNTRTYPE%> </span><span style="font-family:arial; font-size:8pt">[facility]</span>< span style="display:none; font-family:arial; font-size:8pt"><%END%></span></p></ td><td style="vertical-align:top; width:174.25pt"><p style="margin:0pt">< span style="font-family:arial; font-size:8pt; font-weight:bold">Med Service </ span><span style="display:none; font-family:arial; font-size:8pt"><%MEDSERVICE%> </span><span style="font-family:arial; font-size:8pt">PHYSOFF-Physician Office</ span><span style="display:none; font-family:arial; font-size:8pt"><%END%></span> </p></td><td style="vertical-align:top; width:174.25pt"><p style="margin:0pt">< span style="font-family:arial; font-size:8pt; font-weight:bold">Referred by </ span><span style="display:none; font-family:arial; font-size:8pt"><%REFERREDBY%> </span><span style="display:none; font-family:arial; font-size:8pt"><%END%></ span></p></td></tr><tr><td style="vertical-align:top; width:174.25pt"><p style= "margin:0pt"><span style="font-family:arial; font-size:8pt; font-weight:bold"> Track Group</span><span style="font-family:arial; font-size:8pt"> </span>< span style="display:none; font-family:arial; font-size:8pt"><%TRACKGROUP%></span ><span style="font-family:arial; font-size:8pt">Clinic Discharge Process</span>& lt;span style="display:none; font-family:arial; font-size:8pt"><%END%></span></p ></td><td style="vertical-align:top; width:174.25pt"><p style="margin:0pt">< span style="font-family:arial; font-size:8pt; font-weight:bold">Discharge </span ><span style="display:none; font-family:arial; font-size:8pt"><%DISCHDTTM%></ span><span style="display:none; font-family:arial; font-size:8pt"><%END%></span> </p></td><td style="vertical-align:top; width:174.25pt"><p style="margin:0pt">< span style="font-family:'times new j carlos'; font-size:12pt"></span></p></td ></tr><tr><td style="vertical-align:top; width:174.25pt"><p style="margin:0pt">< span style="font-family:arial; font-size:8pt; font-weight:bold">Tracking Id </ span><span style="display:none; font-family:arial; font-size:8pt"><%TRACKINGID%> </span><span style="display:none; font-family:arial; font-size:8pt"><%END%></ span></p></td><td style="vertical-align:top; width:174.25pt"><p style="margin: 0pt"><span style="font-family:arial; font-size:8pt; font-weight:bold">Checkout < /span><span style="display:none; font-family:arial; font-size:8pt"><% CHECKOUTDTTM%></span><span style="display:none; font-family:arial; font-size:8pt "><%END%></span></p></td><td style="vertical-align:top; width:174.25pt"><p style ="margin:0pt"><span style="font-family:'times new j carlos'; font-size:12pt"></ span></p></td></tr><tr><td style="vertical-align:top; width:174.25pt"><p style= "margin:0pt"><span style="font-family:arial; font-size:8pt; font-weight:bold"> Checkin </span><span style="display:none; font-family:arial; font-size:8pt"><% CHECKINDTTM%></span><span style="display:none; font-family:arial; font-size:8pt "><%END%></span></p></td><td style="vertical-align:top; width:174.25pt">< p style="margin:0pt"><span style="font-family:arial; font-size:8pt; font-weight: bold">Acuity </span><span style="display:none; font-family:arial; font-size:8pt "><%ACUITY%></span><span style="display:none; font-family:arial; font-size:8pt"> <%END%></span></p></td><td style="vertical-align:top; width:174.25pt"><p style="margin:0pt"><span style="font-family:arial; font-size:8pt; font-weight: bold">Dispo Type </span><span style="display:none; font-family:arial; font-size: 8pt"><%DISDISP%></span><span style="display:none; font-family:arial; font-size: 8pt"><%END%></span></p></td></tr><tr><td style="vertical-align:top; width: 174.25pt"><p style="margin:0pt"><span style="font-family:arial; font-size:8pt; font-weight:bold">Arrival </span><span style="display:none; font-family:arial; font-size:8pt"><%ARRIVALDTTM%></span><span style="font-family:arial; font-size: 8pt">09/18/2010 8:14 AM</span><span style="display:none; font-family:arial; font- size:8pt"><%END%></span></p></td><td style="vertical-align:top; width:174.25pt"> <p style="margin:0pt"><span style="font-family:arial; font-size:8pt; font-weight :bold">Reg Status </span><span style="display:none; font-family:arial; font-size :8pt"><%REGSTATUS%></span><span style="display:none; font-family:arial; font- size:8pt"><%END%></span></p></td><td style="vertical-align:top; width: 174.25pt"><p style="margin:0pt"><span style="font-family:arial; font-size:8pt; font-weight:bold">LOS </span><span style="display:none; font-family:arial; font- size:8pt"><%LOSTRACK%></span><span style="display:none; font-family:arial; font- size:8pt"><%END%></span></p></td></tr></table><p style="margin:0pt"><span style= "font-family:arial; font-size:8pt; font-weight:bold">Address:</span></p><p style ="margin:0pt"><span style="font-family:arial; font-size:8pt"> </span><span style="display:none; font-family:arial; font-size:8pt"><%ADDRESS%></span><span style="font-family:arial; font-size:8pt">[address] [place] [address]</span ><span style="display:none; font-family:arial; font-size:8pt"><%END%></span>< span style="font-family:arial; font-size:8pt"> </span></p><p style="margin:0pt"> <span style="font-family:'times new j carlos'; font-size:12pt; font-weight:bold">< /span></p><p style="margin:0pt"><span style="font-family:arial; font-size:12pt; font-weight:bold">PHYS DOC NOTES</span></p><p style="margin:0pt"><span style= "display:none; font-family:arial; font-size:8pt"><%PHYDOC%></span><span style= "display:none; font-family:arial; font-size:8pt"><%END%></span><span style="font -family:arial; font-size:8pt"> </span></p><p style="margin:0pt"><span style= "font-family:'times new j carlos'; font-size:12pt"></span></p><p style="margin:0pt "><span style="font-family:arial; font-size:12pt; font-weight:bold">PROVIDER INFORMATION</span><span style="font-family:'times new j carlos'; font-size:12pt"> < /span></p><p style="margin:0pt"><span style="font-family:arial; font-size:8pt"> </span></p><p style="margin:3.65pt 0pt 7.3pt"><span style="display:none; font- family:'Times New J Carlos'; font-size:11pt"><%PROVROLETBL%></span><span style= "display:none; font-family:'Times New J Carlos'; font-size:11pt"><%END%></span></p> <p style="margin:0pt"><span style="font-family:'times new j carlos'; font-size:12pt "></span></p><p style="margin:0pt"><span style="font-family:arial; font-size: 12pt; font-weight:bold">VITALS INFORMATION</span></p><table cellspacing="0" cellpadding="0" style="border-collapse:collapse; margin-left:0pt"><tr><td style= "vertical-align:middle; width:264pt"><p style="margin:0pt"><span style=" display:none; font-family:'Times New J Carlos'; font-size:11pt"><%[facility]_DEPART_ CLIN_VITALS%></span><span style="font-family:'Times New J Carlos'; font-size:11pt; font-weight:bold">Height:</span><span style="font-family:'Times New J Carlos' ; font-size:11pt"> 5ft 7.5in</span></p></td><td style="vertical-align:middle; width:264pt"><p style="margin:0pt"><span style="font-family:'Times [employer] J Carlos'; font-size:11pt; font-weight:bold">Weight:</span><span style="font-family:'Times New J Carlos'; font-size:11pt"> 147.27 lbs (BMI: 22.7)</span></p></td></tr><tr><td style="vertical-align:middle; width:264pt"><p style="margin:0pt"><span style= "font-family:'Times New J Carlos'; font-size:11pt; font-weight:bold">Temp:</span>< span style="font-family:'Times New J Carlos'; font-size:11pt"> 97.3 F</span></p></ td><td style="vertical-align:middle; width:264pt"><p style="margin:0pt">< span style="font-family:'Times New J Carlos'; font-size:11pt; font-weight:bold"> Heart Rate:</span><span style="font-family:'Times New J Carlos'; font-size:11pt& quot;> 97</span></p></td></tr><tr><td style="vertical-align:middle; width:264pt "><p style="margin:0pt"><span style="font-family:'Times New J Carlos'; font-size: 11pt; font-weight:bold">Respiratory:</span><span style="font-family:'Times New J Carlos'; font-size:11pt"> 16</span></p></td><td style="vertical-align:middle; width:264pt"><p style="margin:0pt"><span style="font-family:'Times New J Carlos' ; font-size:11pt; font-weight:bold">O2 Sat:</span><span style="font-family:' Times New J Carlos'; font-size:11pt"> 100</span></p></td></tr><tr><td colspan="2" style="vertical-align:middle; width:528pt"><p style="margin:0pt"><span style= "font-family:'Times New J Carlos'; font-size:11pt; font-weight:bold">BP:</span>< span style="font-family:'Times New J Carlos'; font-size:11pt"> 118/72</span></p></ td></tr><tr style="height:0pt"><td style="width:264pt; border:none"></td><td style="width:264pt; border:none"></td></tr></table><p style="margin:3.65pt 0pt 7.3pt"><span style="font-family:'Times New J Carlos'; font-size:11pt"></span></p>< p style="margin:0pt"><span style="display:none; font-family:'times new j carlos'; font-size:12pt"><%END%></span></p><p style="margin:0pt"><span style="font-family :'times new j carlos'; font-size:12pt"></span></p><p style="margin:0pt"><span style="font-family:arial; font-size:12pt; font-weight:bold">LOCATION INFORMATION </span></p><p style="margin:0pt"><span style="font-family:arial; font-size:8pt"> </span></p><table cellspacing="0" cellpadding="0" style="border-collapse: collapse; margin-left:0pt"><tr><td style="vertical-align:top; width:112.5pt"><p style="margin:3.65pt 0pt 7.3pt"><span style="display:none; font-family:'Times New J Carlos'; font-size:11pt; font-weight:normal"><%LOCTBL%></span><span style= "font-family:'Times New J Carlos'; font-size:8pt; font-weight:bold">Arrival</span>< /p></td><td style="vertical-align:top; width:112.5pt"><p style="margin:3.65pt 0pt 7.3pt"><span style="font-family:'Times New J Carlos'; font-size:8pt; font- weight:bold">Nurse Unit</span></p></td><td style="vertical-align:top; width: 112.5pt"><p style="margin:3.65pt 0pt 7.3pt"><span style="font-family:'Times New J Carlos'; font-size:8pt; font-weight:bold">Room</span></p></td><td style="vertical -align:top; width:112.5pt"><p style="margin:3.65pt 0pt 7.3pt"><span style="font- family:'Times New J Carlos'; font-size:8pt; font-weight:bold">Bed</span></p></td></ tr><tr><td style="vertical-align:middle; width:112.5pt"><p style="margin:3.65pt 0pt 7.3pt"><span style="font-family:'Times [employer] J Carlos'; font-size:11pt"></span>< /p></td><td style="vertical-align:middle; width:112.5pt"><p style="margin: 3.65pt 0pt 7.3pt"><span style="font-family:'Times [employer] J Carlos'; font-size:11pt">< /span></p></td><td style="vertical-align:middle; width:112.5pt"><p style=" margin:3.65pt 0pt 7.3pt"><span style="font-family:'Times [employer] J Carlos'; font-size: 11pt"></span></p></td><td style="vertical-align:middle; width:112.5pt"><p style ="margin:3.65pt 0pt 7.3pt"><span style="font-family:'Times [employer] J Carlos'; font-size :11pt"></span></p></td></tr></table><p style="margin:3.65pt 0pt 7.3pt">< span style="font-family:'Times [employer] J Carlos'; font-size:11pt"></span></p><p style= "margin:3.65pt 0pt 7.3pt"><span style="display:none; font-family:'Times New J Carlos'; font-size:11pt"><%END%></span></p><p style="margin:0pt"><span style= "font-family:'times new j carlos'; font-size:12pt"></span></p><p style="margin: 0pt"><span style="font-family:arial; font-size:12pt; font-weight:bold">ORDERS INFORMATION</span></p><p style="margin:0pt"><span style="font-family:arial; font -size:8pt"></span></p><p style="margin:3.65pt 0pt 7.3pt"><span style="display: none; font-family:'Times [employer] J Carlos'; font-size:11pt"><%ORDNRESTBL%></span><span style="display:none; font-family:'Times New J Carlos'; font-size:11pt"><%END%></ span></p><p style="margin:0pt"><span style="font-family:'times new j carlos'; font- size:12pt"></span></p><p style="margin:0pt"><span style="font-family:arial; font-size:12pt; font-weight:bold">MEDICAL INFORMATION</span></p><p style=" margin:0pt"><span style="font-family:arial; font-size:10pt"> Allergy Info: </ span></p><p style="margin:0pt"><span style="font-family:arial; font-size:8pt"> < /span><span style="display:none; font-family:arial; font-size:10pt"><%ALLERGY %></span><span style="font-family:arial; font-size:10pt">NKA</span><span style= "display:none; font-family:arial; font-size:10pt"><%END%></span></p><p style= "margin:0pt"><span style="font-family:'times new j carlos'; font-size:12pt"></span ></p><p style="margin:0pt"><span style="font-family:arial; font-size:12pt; font-weight:bold">HOME MEDICATIONS</span></p><p style="margin:0pt"><span style= "display:none; font-family:arial; font-size:10pt"><%[facility]_DEPART_HOME_MEDS%></ span><span style="font-family:'Times [employer] J Carlos'; font-size:11pt; font-weight: bold">BenzaClin with pump topical gel</span><span style="font-family:'Times New J Carlos'; font-size:11pt"> See Instructions, 1 Apply TOP at Hs. May increase to BID if needed</span></p><p style="margin:0pt"><span style="font-family:'Times [employer] J Carlos'; font-size:11pt"></span></p><p style="margin:0pt"><span style= "display:none; font-family:arial; font-size:10pt"><%END%></span></p><p style= "margin:0pt"><span style="font-family:'times new j carlos'; font-size:12pt"></span ></p><p style="margin:0pt"><span style="font-family:arial; font-size:12pt; font- weight:bold">DISCHARGE INFORMATION</span></p><p style="margin:0pt"><span style= "font-family:arial; font-size:10pt"> Discharge Disposition: </span><span style= "display:none; font-family:arial; font-size:10pt"><%DISDISP%></span><span style= "display:none; font-family:arial; font-size:10pt"><%END%></span></p><p style=& quot;margin:0pt"><span style="font-family:arial; font-size:10pt"> Discharge Location: </span><span style="display:none; font-family:arial; font-size:10pt">< %DISLOC%></span><span style="display:none; font-family:arial; font-size:10pt "><%END%></span></p><p style="margin:0pt"><span style="font-family:'times new j carlos'; font-size:12pt"></span></p><p style="margin:0pt"><span style="font- family:arial; font-size:12pt; font-weight:bold">PATIENT EDUCATION INFORMATION</ span></p><p style="margin:0pt"><span style="font-family:arial; font-size: 10pt"> Instructions:</span></p><p style="margin:0pt"><span style="font-family: arial; font-size:10pt"> </span><span style="display:none; font-family:arial ; font-size:10pt"><%DISINSTRUCT%></span><span style="font-family:arial; font- size:10pt">What Is Teen Acne?; FOLLICULITIS</span><span style="display:none; font-family:arial; font-size:10pt"><%END%></span></p><p style="margin:0pt">< span style="font-family:arial; font-size:10pt"> Follow up:</span></p><p style= "margin:0pt"><span style="font-family:arial; font-size:10pt"></span></p><p style="margin:3.65pt 0pt 7.3pt"><span style="display:none; font-family:'Times [employer] Carlos'; font-size:11pt"><%FOLLOWUPTABLE%></span><span style="display:none; font-family:'Times [employer] J Carlos'; font-size:11pt"><%END%></span></p><p style=" margin:0pt"><span style="font-family:'times new j carlos'; font-size:12pt"></span> </p><p style="margin:0pt"><span style="font-family:arial; font-size:12pt; font- weight:bold">DIAGNOSIS</span></p><p style="margin:0pt"><span style="display:none ; font-family:arial; font-size:8pt"><%DIAGNOSIS%></span><span style="font-family :arial; font-size:8pt">Acne</span><span style="display:none; font-family:arial; font-size:8pt"><%END%></span></p><p style="margin:0pt"><span style="font-family: 'times new j carlos'; font-size:12pt"></span></p><p style="margin:0pt"><span style ="font-family:'times new j carlos'; font-size:12pt"></span></p><p style="margin :0pt"><span style="font-family:'times new j carlos'; font-size:12pt"></span></p>< p style="margin:0pt"><span style="font-family:'times new j carlos'; font-size:12pt "></span></p><p style="margin:0pt"><span style="font-family:'times new j carlos'; font-size:12pt"></span></p><p style="margin:0pt"><span style="font-family:' times new j carlos'; font-size:12pt"></span></p><p style="margin:3.65pt 0pt 7.3pt "><span style="font-family:'times new j carlos'; font-size:12pt"></span></p>< /div> 09/18/2010 [facility] Ambulatory Depart Summary Ambulatory Depart Summary <div><p style="margin:0pt; text-align:center"><span style="display:none; font-family:'Times New J Carlos'; font-size:11pt"><%UDTHART_ CLINIC_HEADER_UDT%></span><span style="font-family:'times new j carlos'; font- size:12pt; font-weight:bold">[facility]</span> <span style="font-family:'times new j carlos'; font-size:12pt; font-weight:bold"> [address] [facility]</span> <span style="font-family:'times new j carlos'; font-size:12pt; font-weight:bold"> [place] [address]</span> <span style="font-family:'times new j carlos'; font-size:12pt; font-weight:bold"> [phone] </span> <span style="font-family:'times new j carlos'; font-size:12pt"></span></p><p style ="margin:0pt; text-align:center"><span style="font-family:'times new j carlos'; font-size:12pt"></span></p><p style="margin:3.65pt 0pt 7.3pt"><span style= "display:none; font-family:'Times New J Carlos'; font-size:11pt"><%END%></span>< span style="font-family:'Times [employer] J Carlos'; font-size:11pt"> </span></p><p style= "margin:0pt"><span style="font-family:'times new j carlos'; font-size:12pt"> < /span></p><p style="margin:0pt"><span style="font-family:arial; font-size:12pt; font-weight:bold">PERSON INFORMATION</span><span style="font-family:'times new j carlos'; font-size:12pt"> </span></p><table cellspacing="0" cellpadding="0" style ="border-collapse:collapse; margin-left:0pt"><tr><td style="vertical-align:top; width:174.25pt"><p style="margin:0pt"><span style="font-family:arial; font- size:8pt; font-weight:bold">Name </span><span style="display:none; font-family: arial; font-size:8pt"><%NAME%></span><span style="font-family:arial; font- size:8pt">SANIA CARBONE</span><span style="display:none; font-family: arial; font-size:8pt"><%END%></span></p></td><td style="vertical-align:top; width:174.25pt"><p style="margin:0pt"><span style="font-family:arial; font-size: 8pt; font-weight:bold">Age </span><span style="display:none; font-family:arial; font-size:8pt"><%AGE%></span><span style="font-family:arial; font-size:8pt"> 20 Years</span><span style="display:none; font-family:arial; font-size:8pt"><% END%></span></p></td><td style="vertical-align:top; width:174.25pt"><p style= "margin:0pt"><span style="font-family:arial; font-size:8pt; font-weight:bold"> </span><span style="display:none; font-family:arial; font-size:8pt"><%%>< /span><span style="font-family:arial; font-size:8pt">1990</span><span style="display:none; font-family:arial; font-size:8pt"><%END%></span></p></td></ tr><tr><td style="vertical-align:top; width:174.25pt"><p style="margin:0pt">< span style="font-family:arial; font-size:8pt; font-weight:bold">Sex </span> <span style="display:none; font-family:arial; font-size:8pt"><%GENDER%></span>< span style="font-family:arial; font-size:8pt">Female</span><span style="display: none; font-family:arial; font-size:8pt"><%END%></span></p></td><td style= "vertical-align:top; width:174.25pt"><p style="margin:0pt"><span style="font- family:arial; font-size:8pt; font-weight:bold">Language </span><span style= "display:none; font-family:arial; font-size:8pt"><%LANGUAGE%></span><span style= "font-family:arial; font-size:8pt">Swedish</span><span style="display:none; font -family:arial; font-size:8pt"><%END%></span></p></td><td style="vertical-align: top; width:174.25pt"><p style="margin:0pt"><span style="font-family:arial; font- size:8pt; font-weight:bold">PCP </span><span style="display:none; font-family: arial; font-size:8pt"><%PCP%></span><span style="font-family:arial; font-size: 8pt">Galicia, Maria Teresa W, DO</span><span style="display:none; font-family:arial; font -size:8pt"><%END%></span></p></td></tr><tr><td style="vertical-align:top; width:174.25pt"><p style="margin:0pt"><span style="font-family:arial; font-size: 8pt; font-weight:bold">Marital Status </span><span style="display:none; font- family:arial; font-size:8pt"><%MARITALSTAT%></span><span style="font-family: arial; font-size:8pt">Single</span><span style="display:none; font-family:arial ; font-size:8pt"><%END%></span></p></td><td style="vertical-align:top; width: 174.25pt"><p style="margin:0pt"><span style="font-family:arial; font-size: 8pt; font-weight:bold">Phone </span><span style="display:none; font-family:arial ; font-size:8pt"><%PHONE%></span><span style="font-family:arial; font-size:8pt"> </span><span style="display:none; font-family:arial; font-size:8pt "><%END%></span></p></td><td style="vertical-align:top; width:174.25pt"><p style ="margin:0pt"><span style="font-family:arial; font-size:8pt; font-weight:bold"> Time Zone </span><span style="display:none; font-family:arial; font-size:8pt"><% TIMEZONE%></span><span style="display:none; font-family:arial; font-size: 8pt"><%END%></span></p></td></tr><tr><td style="vertical-align:top; width: 174.25pt"><p style="margin:0pt"><span style="font-family:arial; font-size:8pt; font-weight:bold">MRN </span><span style="display:none; font-family:arial; font- size:8pt"><%ALIASPMRN%></span><span style="font-family:arial; font-size:8pt"> [id number]</span><span style="display:none; font-family:arial; font-size:8pt"><%END% ></span></p></td><td style="vertical-align:top; width:174.25pt"><p style="margin :0pt"><span style="font-family:arial; font-size:8pt; font-weight:bold">Visit Id </span><span style="display:none; font-family:arial; font-size:8pt"><% ALIASEVISITID%></span><span style="display:none; font-family:arial; font-size: 8pt"><%END%></span></p></td><td style="vertical-align:top; width:174.25pt"><p style="margin:0pt"><span style="font-family:arial; font-size:8pt; font-weight: bold">Acct# </span><span style="display:none; font-family:arial; font-size:8pt"> <%ALIASEFIN NBR%></span><span style="font-family:arial; font-size:8pt"> [id number]</span><span style="display:none; font-family:arial; font-size:8pt"><% END%></span></p></td></tr><tr><td style="vertical-align:top; width:174.25pt"><p style="margin:0pt"><span style="font-family:arial; font-size:8pt; font-weight: bold">Visit Reason </span><span style="display:none; font-family:arial; font- size:8pt"><%RFV%></span><span style="font-family:arial; font-size:8pt">FEVER/ SORE THROAT</span><span style="display:none; font-family:arial; font-size:8pt">< %END%></span></p></td><td style="vertical-align:top; width:174.25pt"><p style= "margin:0pt"><span style="font-family:arial; font-size:8pt; font-weight:bold"> Specialty </span><span style="display:none; font-family:arial; font-size:8pt"><% SPECIALTY%></span><span style="display:none; font-family:arial; font-size:8pt">< %END%></span></p></td><td style="vertical-align:top; width:174.25pt"><p style= "margin:0pt"><span style="font-family:'times new j carlos'; font-size:12pt"></span ></p></td></tr><tr><td style="vertical-align:top; width:174.25pt"><p style= "margin:0pt"><span style="font-family:arial; font-size:8pt; font-weight:bold"> Enc Type </span><span style="display:none; font-family:arial; font-size:8pt"><% ENCNTRTYPE%></span><span style="font-family:arial; font-size:8pt">[facility]</span><span style="display:none; font-family:arial; font-size:8pt"><%END% ></span></p></td><td style="vertical-align:top; width:174.25pt"><p style="margin :0pt"><span style="font-family:arial; font-size:8pt; font-weight:bold">Med Service </span><span style="display:none; font-family:arial; font-size:8pt"><% MEDSERVICE%></span><span style="font-family:arial; font-size:8pt">PHYSOFF- Physician Office</span><span style="display:none; font-family:arial; font-size: 8pt"><%END%></span></p></td><td style="vertical-align:top; width:174.25pt"><p style="margin:0pt"><span style="font-family:arial; font-size:8pt; font-weight: bold">Referred by </span><span style="display:none; font-family:arial; font-size :8pt"><%REFERREDBY%></span><span style="display:none; font-family:arial; font- size:8pt"><%END%></span></p></td></tr><tr><td style="vertical-align:top; width: 174.25pt"><p style="margin:0pt"><span style="font-family:arial; font-size:8pt; font-weight:bold">Track Group</span><span style="font-family:arial; font-size: 8pt"> </span><span style="display:none; font-family:arial; font-size:8pt"><% TRACKGROUP%></span><span style="font-family:arial; font-size:8pt">Clinic Discharge Process</span><span style="display:none; font-family:arial; font- size:8pt"><%END%></span></p></td><td style="vertical-align:top; width:174.25pt"> <p style="margin:0pt"><span style="font-family:arial; font-size:8pt; font- weight:bold">Discharge </span><span style="display:none; font-family:arial; font -size:8pt"><%DISCHDTTM%></span><span style="display:none; font-family:arial ; font-size:8pt"><%END%></span></p></td><td style="vertical-align:top; width: 174.25pt"><p style="margin:0pt"><span style="font-family:'times new j carlos'; font -size:12pt"></span></p></td></tr><tr><td style="vertical-align:top; width: 174.25pt"><p style="margin:0pt"><span style="font-family:arial; font-size:8pt; font-weight:bold">Tracking Id </span><span style="display:none; font-family: arial; font-size:8pt"><%TRACKINGID%></span><span style="display:none; font- family:arial; font-size:8pt"><%END%></span></p></td><td style="vertical-align: top; width:174.25pt"><p style="margin:0pt"><span style="font-family:arial; font- size:8pt; font-weight:bold">Checkout </span><span style="display:none; font- family:arial; font-size:8pt"><%CHECKOUTDTTM%></span><span style="display:none; font-family:arial; font-size:8pt"><%END%></span></p></td><td style="vertical- align:top; width:174.25pt"><p style="margin:0pt"><span style="font-family:' times new j carlos'; font-size:12pt"></span></p></td></tr><tr><td style= "vertical-align:top; width:174.25pt"><p style="margin:0pt"><span style="font- family:arial; font-size:8pt; font-weight:bold">Checkin </span><span style= "display:none; font-family:arial; font-size:8pt"><%CHECKINDTTM%></span><span style="display:none; font-family:arial; font-size:8pt"><%END%></span></p></td>< td style="vertical-align:top; width:174.25pt"><p style="margin:0pt"><span style= "font-family:arial; font-size:8pt; font-weight:bold">Acuity </span><span style="display:none; font-family:arial; font-size:8pt"><%ACUITY%></span><span style="display:none; font-family:arial; font-size:8pt"><%END%></span></p></td ><td style="vertical-align:top; width:174.25pt"><p style="margin:0pt"><span style="font-family:arial; font-size:8pt; font-weight:bold">Dispo Type </span> <span style="display:none; font-family:arial; font-size:8pt"><%DISDISP%></span>< span style="display:none; font-family:arial; font-size:8pt"><%END%></span></p>& lt;/td></tr><tr><td style="vertical-align:top; width:174.25pt"><p style="margin: 0pt"><span style="font-family:arial; font-size:8pt; font-weight:bold">Arrival </ span><span style="display:none; font-family:arial; font-size:8pt"><%ARRIVALDTTM% ></span><span style="font-family:arial; font-size:8pt">12/22/2010 9:11 AM</span>< span style="display:none; font-family:arial; font-size:8pt"><%END%></span></p></ td><td style="vertical-align:top; width:174.25pt"><p style="margin:0pt"><span style="font-family:arial; font-size:8pt; font-weight:bold">Reg Status </span>< span style="display:none; font-family:arial; font-size:8pt"><%REGSTATUS%></span> <span style="display:none; font-family:arial; font-size:8pt"><%END%></span></p>< /td><td style="vertical-align:top; width:174.25pt"><p style="margin:0pt"><span style="font-family:arial; font-size:8pt; font-weight:bold">LOS </span><span style="display:none; font-family:arial; font-size:8pt"><%LOSTRACK%></span><span style="display:none; font-family:arial; font-size:8pt"><%END%></span></p> </td></tr></table><p style="margin:0pt"><span style="font-family:arial; font- size:8pt; font-weight:bold">Address:</span></p><p style="margin:0pt"><span style ="font-family:arial; font-size:8pt"> </span><span style="display:none; font- family:arial; font-size:8pt"><%ADDRESS%></span><span style="font-family:arial; font-size:8pt">[address] [facility] [address]</span><span style="display:none ; font-family:arial; font-size:8pt"><%END%></span><span style="font-family:arial ; font-size:8pt"> </span></p><p style="margin:0pt"><span style="font-family :'times new j carlos'; font-size:12pt; font-weight:bold"></span></p><p style= "margin:0pt"><span style="font-family:arial; font-size:12pt; font-weight:bold ">PHYS DOC NOTES</span></p><p style="margin:0pt"><span style="display:none; font -family:arial; font-size:8pt"><%PHYDOC%></span><span style="display:none ; font-family:arial; font-size:8pt"><%END%></span><span style="font-family:arial ; font-size:8pt"> </span></p><p style="margin:0pt"><span style="font-family:' times new j carlos'; font-size:12pt"></span></p><p style="margin:0pt"><span style= "font-family:arial; font-size:12pt; font-weight:bold">PROVIDER INFORMATION</span ><span style="font-family:'times new j carlos'; font-size:12pt"> </span></p><p style="margin:0pt"><span style="font-family:arial; font-size:8pt"></span></p>< p style="margin:3.65pt 0pt 7.3pt"><span style="display:none; font-family:'Times New J Carlos'; font-size:11pt"><%PROVROLETBL%></span><span style="display: none; font-family:'Times New J Carlos'; font-size:11pt"><%END%></span></p><p style= "margin:0pt"><span style="font-family:'times new j carlos'; font-size:12pt"></span ></p><p style="margin:0pt"><span style="font-family:arial; font-size:12pt; font- weight:bold">VITALS INFORMATION</span></p><table cellspacing="0" cellpadding= "0" style="border-collapse:collapse; margin-left:0pt"><tr><td style="vertical- align:middle; width:264pt"><p style="margin:0pt"><span style="display:none; font-family:'Times New J Carlos'; font-size:11pt"><%UDTHART_DEPART_CLIN_VITALS%></ span><span style="font-family:'Times New J Carlos'; font-size:11pt; font-weight: bold">Height:</span><span style="font-family:'Times New J Carlos'; font-size:11pt" > 5ft 6.5in</span></p></td><td style="vertical-align:middle; width:264pt"><p style="margin:0pt"><span style="font-family:'Times New J Carlos'; font-size:11pt; font-weight:bold">Weight:</span><span style="font-family:'Times New J Carlos'; font -size:11pt"> 142.64 lbs (BMI: 22.7)</span></p></td></tr><tr><td style="vertical- align:middle; width:264pt"><p style="margin:0pt"><span style="font-family:' Times New J Carlos'; font-size:11pt; font-weight:bold">Temp:</span><span style= "font-family:'Times New J Carlos'; font-size:11pt"> 102.4 F</span></p></td><td style="vertical-align:middle; width:264pt"><p style="margin:0pt"><span style= "font-family:'Times New J Carlos'; font-size:11pt; font-weight:bold">Heart Rate:</ span><span style="font-family:'Times New J Carlos'; font-size:11pt"> 135</span></p> </td></tr><tr><td style="vertical-align:middle; width:264pt"><p style="margin: 0pt"><span style="font-family:'Times New J Carlos'; font-size:11pt; font- weight:bold">Respiratory:</span><span style="font-family:'Times New J Carlos'; font -size:11pt"> 18</span></p></td><td style="vertical-align:middle; width:264pt">< p style="margin:0pt"><span style="font-family:'Times New J Carlos'; font-size:11pt ; font-weight:bold">O2 Sat:</span><span style="font-family:'Times New J Carlos'; font-size:11pt"> 96</span></p></td></tr><tr><td colspan="2" style="vertical- align:middle; width:528pt"><p style="margin:0pt"><span style="font-family:' Times New J Carlos'; font-size:11pt; font-weight:bold">BP:</span><span style="font- family:'Times New J Carlos'; font-size:11pt"> 112/72</span></p></td></tr><tr style= "height:0pt"><td style="width:264pt; border:none"></td><td style="width: 264pt; border:none"></td></tr></table><p style="margin:3.65pt 0pt 7.3pt"><span style="font-family:'Times New J Carlos'; font-size:11pt"></span></p><p style= "margin:0pt"><span style="display:none; font-family:'times new j carlos'; font-size :12pt"><%END%></span></p><p style="margin:0pt"><span style="font-family:' times new j carlos'; font-size:12pt"></span></p><p style="margin:0pt"><span style= "font-family:arial; font-size:12pt; font-weight:bold">LOCATION INFORMATION</span ></p><p style="margin:0pt"><span style="font-family:arial; font-size:8pt"></ span></p><table cellspacing="0" cellpadding="0" style="border-collapse:collapse ; margin-left:0pt"><tr><td style="vertical-align:top; width:112.5pt"><p style= "margin:3.65pt 0pt 7.3pt"><span style="display:none; font-family:'Times New J Carlos'; font-size:11pt; font-weight:normal"><%LOCTBL%></span><span style="font- family:'Times New J Carlos'; font-size:10pt; font-weight:bold">Arrival</span></p></ td><td style="vertical-align:top; width:112.5pt"><p style="margin:3.65pt 0pt 7.3pt"><span style="font-family:'Times New J Carlos'; font-size:10pt; font- weight:bold">Nurse Unit</span></p></td><td style="vertical-align:top; width: 112.5pt"><p style="margin:3.65pt 0pt 7.3pt"><span style="font-family:'Times New J Carlos'; font-size:10pt; font-weight:bold">Room</span></p></td><td style= "vertical-align:top; width:112.5pt"><p style="margin:3.65pt 0pt 7.3pt"><span style="font-family:'Times New J Carlos'; font-size:10pt; font-weight:bold">Bed</ span></p></td></tr><tr><td style="vertical-align:middle; width:112.5pt"><p style ="margin:3.65pt 0pt 7.3pt"><span style="font-family:'Times New J Carlos'; font-size :11pt"></span></p></td><td style="vertical-align:middle; width:112.5pt"><p style="margin:3.65pt 0pt 7.3pt"><span style="font-family:'Times New J Carlos'; font -size:11pt"></span></p></td><td style="vertical-align:middle; width:112.5pt"&gt ;<p style="margin:3.65pt 0pt 7.3pt"><span style="font-family:'Times New J Carlos'; font-size:11pt"></span></p></td><td style="vertical-align:middle; width:112.5pt "><p style="margin:3.65pt 0pt 7.3pt"><span style="font-family:'Times New J Carlos'; font-size:11pt"></span></p></td></tr></table><p style="margin:3.65pt 0pt 7.3pt"><span style="font-family:'Times New J Carlos'; font-size:11pt"></span>< /p><p style="margin:3.65pt 0pt 7.3pt"><span style="display:none; font-family:' Times New J Carlos'; font-size:11pt"><%END%></span></p><p style="margin:0pt"><span style="font-family:'times new j carlos'; font-size:12pt"></span></p><p style= "margin:0pt"><span style="font-family:arial; font-size:12pt; font-weight:bold"> ORDERS INFORMATION</span></p><p style="margin:0pt"><span style="font-family: arial; font-size:8pt"></span></p><table cellspacing="0" cellpadding="0" style= "border-collapse:collapse; margin-left:0pt"><tr><td style="vertical-align:top; width:75pt"><p style="margin:3.65pt 0pt 7.3pt"><span style="display:none; font- family:'Times New J Carlos'; font-size:11pt; font-weight:normal"><%ORDNRESTBL%></ span><span style="font-family:'Times New J Carlos'; font-size:10pt; font-weight: bold">Start Time</span></p></td><td style="vertical-align:top; width:75pt"><p style="margin:3.65pt 0pt 7.3pt"><span style="font-family:'Times New J Carlos'; font -size:10pt; font-weight:bold">Order</span></p></td><td style="vertical-align:top ; width:75pt"><p style="margin:3.65pt 0pt 7.3pt"><span style="font-family:' Times New J Carlos'; font-size:10pt; font-weight:bold">Type</span></p></td><td style="vertical-align:top; width:60pt"><p style="margin:3.65pt 0pt 7.3pt"><span style="font-family:'Times [place] J Carlos'; font-size:10pt; font-weight:bold">Status</ span></p></td><td style="vertical-align:top; width:90pt"><p style="margin: 3.65pt 0pt 7.3pt"><span style="font-family:'Times [employer] J Carlos'; font-size:10pt; font-weight:bold">Stop Time</span></p></td><td style="vertical-align:top; width: 90pt"><p style="margin:3.65pt 0pt 7.3pt"><span style="font-family:'Times [employer] J Carlos'; font-size:10pt; font-weight:bold">Provider</span></p></td></tr><tr>< td style="vertical-align:middle; width:75pt"><p style="margin:3.65pt 0pt 7.3pt"> <span style="font-family:'Times [employer] J Carlos'; font-size:10pt">12/22/2010 9:53 AM</ span></p></td><td style="vertical-align:middle; width:75pt"><p style="margin: 3.65pt 0pt 7.3pt"><span style="font-family:'Times [employer] J Carlos'; font-size:10pt"> Depo-Medrol 160mg Careset -Clinic</span></p></td><td style="vertical-align: middle; width:75pt"><p style="margin:3.65pt 0pt 7.3pt"><span style="font-family: 'Times [employer] J Carlos'; font-size:10pt">Clinic Careset</span></p></td><td style= "vertical-align:middle; width:60pt"><p style="margin:3.65pt 0pt 7.3pt"><span style="font-family:'Times New J Carlos'; font-size:10pt">Completed</span></p></td>< td style="vertical-align:middle; width:90pt"><p style="margin:3.65pt 0pt 7.3pt"> <span style="font-family:'Times New J Carlos'; font-size:10pt">12/22/2010 10:28 AM</span></p></td><td style="vertical-align:middle; width:90pt"><p style="margin :3.65pt 0pt 7.3pt"><span style="font-family:'Times [employer] J Carlos'; font-size:10pt"> Maria Teresa Galicia DO</span></p></td></tr><tr><td style="vertical-align:middle; width:75pt"><p style="margin:3.65pt 0pt 7.3pt"><span style="font-family:'Times [employer] J Carlos'; font-size:10pt">12/22/2010 9:51 AM</span></p></td><td style="vertical -align:middle; width:75pt"><p style="margin:3.65pt 0pt 7.3pt"><span style="font- family:'Times [employer] J Carlos'; font-size:10pt">Depo-Medrol 160mg -Clinic</span></p></ td><td style="vertical-align:middle; width:75pt"><p style="margin:3.65pt 0pt 7.3pt"><span style="font-family:'Times [employer] J Carlos'; font-size:10pt">Clinic Charge </span></p></td><td style="vertical-align:middle; width:60pt"><p style="margin: 3.65pt 0pt 7.3pt"><span style="font-family:'Times [employer] J Carlos'; font-size:10pt"> Completed</span></p></td><td style="vertical-align:middle; width:90pt"><p style= "margin:3.65pt 0pt 7.3pt"><span style="font-family:'Times [employer] J Carlos'; font-size: 10pt">12/22/2010 10:28 AM</span></p></td><td style="vertical-align:middle; width: 90pt"><p style="margin:3.65pt 0pt 7.3pt"><span style="font-family:'Times [employer]'; font-size:10pt">Maria Teresa Galicia DO</span></p></td></tr><tr><td style ="vertical-align:middle; width:75pt"><p style="margin:3.65pt 0pt 7.3pt">< span style="font-family:'Times [employer] J Carlos'; font-size:10pt">12/22/2010 9:51 AM</ span></p></td><td style="vertical-align:middle; width:75pt"><p style="margin: 3.65pt 0pt 7.3pt"><span style="font-family:'Times [employer] Carlos'; font-size:10pt"> Admin SubQ or IM Injection -Clinic</span></p></td><td style="vertical-align: middle; width:75pt"><p style="margin:3.65pt 0pt 7.3pt"><span style="font-family: 'Times [employer] J Carlos'; font-size:10pt">Clinic Charge</span></p></td><td style= "vertical-align:middle; width:60pt"><p style="margin:3.65pt 0pt 7.3pt"><span style="font-family:'Times [employer] J Carlos'; font-size:10pt">Completed</span></p></td>< td style="vertical-align:middle; width:90pt"><p style="margin:3.65pt 0pt 7.3pt"> <span style="font-family:'Times [employer] J Carlos'; font-size:10pt">12/22/2010 10:28 AM</ span></p></td><td style="vertical-align:middle; width:90pt"><p style="margin: 3.65pt 0pt 7.3pt"><span style="font-family:'Times [employer]'; font-size:10pt"> Maria Teresa Galicia DO</span></p></td></tr><tr><td style="vertical-align:middle; width:75pt"><p style="margin:3.65pt 0pt 7.3pt"><span style="font-family:'Times [employer]'; font-size:10pt">12/22/2010 9:53 AM</span></p></td><td style= "vertical-align:middle; width:75pt"><p style="margin:3.65pt 0pt 7.3pt"><span style="font-family:'Times [employer]'; font-size:10pt">Solu-Medrol 125mg Careset -Clinic</span></p></td><td style="vertical-align:middle; width:75pt"><p style= "margin:3.65pt 0pt 7.3pt"><span style="font-family:'Times [employer] J Carlos'; font-size: 10pt">Clinic Careset</span></p></td><td style="vertical-align:middle; width :60pt"><p style="margin:3.65pt 0pt 7.3pt"><span style="font-family:'[employer]'; font-size:10pt">Completed</span></p></td><td style="vertical-align: middle; width:90pt"><p style="margin:3.65pt 0pt 7.3pt"><span style="font-family: '[employer]'; font-size:10pt">12/22/2010 10:30 AM</span></p></td><td style= "vertical-align:middle; width:90pt"><p style="margin:3.65pt 0pt 7.3pt"><span style="font-family:'[employer]'; font-size:10pt">Maria Teresa Galicia DO</ span></p></td></tr><tr><td style="vertical-align:middle; width:75pt"><p style= "margin:3.65pt 0pt 7.3pt"><span style="font-family:'[employer]'; font-size: 10pt">12/22/2010 9:52 AM</span></p></td><td style="vertical-align:middle; width: 75pt"><p style="margin:3.65pt 0pt 7.3pt"><span style="font-family:'[employer]'; font-size:10pt">Solu-Medrol 125mg -Clinic</span></p></td><td style= "vertical-align:middle; width:75pt"><p style="margin:3.65pt 0pt 7.3pt"><span style="font-family:'[employer]'; font-size:10pt">Clinic Charge</span></p></ td><td style="vertical-align:middle; width:60pt"><p style="margin:3.65pt 0pt 7.3pt"><span style="font-family:'[employer]'; font-size:10pt"> Completed</span></p></td><td style="vertical-align:middle; width:90pt"><p style= "margin:3.65pt 0pt 7.3pt"><span style="font-family:'[employer]'; font- size:10pt">12/22/2010 10:28 AM</span></p></td><td style="vertical-align:middle; width:90pt"><p style="margin:3.65pt 0pt 7.3pt"><span style="font-family:'[employer]'; font-size:10pt">Maria Teresa Galicia DO</span></p></td></tr><tr><td style ="vertical-align:middle; width:75pt"><p style="margin:3.65pt 0pt 7.3pt">< span style="font-family:'[employer]'; font-size:10pt">12/22/2010 10:17 AM</ span></p></td><td style="vertical-align:middle; width:75pt"><p style="margin: 3.65pt 0pt 7.3pt"><span style="font-family:'[employer]'; font-size:10pt"> Sedimentation Rate.</span></p></td><td style="vertical-align:middle; width:75pt "><p style="margin:3.65pt 0pt 7.3pt"><span style="font-family:'[employer]' ; font-size:10pt">Laboratory</span></p></td><td style="vertical-align:middle; width:60pt"><p style="margin:3.65pt 0pt 7.3pt"><span style="font-family:'[employer]'; font-size:10pt">Ordered</span></p></td><td style="vertical-align: middle; width:90pt"><p style="margin:3.65pt 0pt 7.3pt"><span style="font-family: '[employer]'; font-size:10pt">12/22/2010 10:17 AM</span></p></td><td style= "vertical-align:middle; width:90pt"><p style="margin:3.65pt 0pt 7.3pt"><span style="font-family:'[employer]'; font-size:10pt">Maria Teresa Galicia DO</span>< /p></td></tr><tr><td style="vertical-align:middle; width:75pt"><p style= "margin:3.65pt 0pt 7.3pt"><span style="font-family:'[employer]'; font-size: 10pt">12/22/2010 10:17 AM</span></p></td><td style="vertical-align:middle; width:75pt"><p style="margin:3.65pt 0pt 7.3pt"><span style="font-family:'[employer]'; font-size:10pt">Mononucleosis</span></p></td><td style="vertical- align:middle; width:75pt"><p style="margin:3.65pt 0pt 7.3pt"><span style="font- family:'[employer]'; font-size:10pt">Laboratory</span></p></td><td style= "vertical-align:middle; width:60pt"><p style="margin:3.65pt 0pt 7.3pt"><span style="font-family:'[employer]'; font-size:10pt">Ordered</span></p></td>< td style="vertical-align:middle; width:90pt"><p style="margin:3.65pt 0pt 7.3pt"> <span style="font-family:'[employer]'; font-size:10pt">12/22/2010 10:17 AM</ span></p></td><td style="vertical-align:middle; width:90pt"><p style="margin: 3.65pt 0pt 7.3pt"><span style="font-family:'[employer]'; font-size:10pt"> Maria Teresa Galicia DO</span></p></td></tr><tr><td style="vertical-align:middle; width:75pt"><p style="margin:3.65pt 0pt 7.3pt"><span style="font-family:'[employer]'; font-size:10pt">12/22/2010 10:17 AM</span></p></td><td style= "vertical-align:middle; width:75pt"><p style="margin:3.65pt 0pt 7.3pt"><span style="font-family:'[employer]'; font-size:10pt">Lizzette</span></p></ td><td style="vertical-align:middle; width:75pt"><p style="margin:3.65pt 0pt 7.3pt"><span style="font-family:'[employer]'; font-size:10pt">Laboratory</ span></p></td><td style="vertical-align:middle; width:60pt"><p style="margin: 3.65pt 0pt 7.3pt"><span style="font-family:'[employer]'; font-size: 10pt">Ordered</span></p></td><td style="vertical-align:middle; width:90pt"><p style="margin:3.65pt 0pt 7.3pt"><span style="font-family:'[employer]' ; font-size:10pt">12/22/2010 10:17 AM</span></p></td><td style="vertical-align: middle; width:90pt"><p style="margin:3.65pt 0pt 7.3pt"><span style="font-family: '[employer]'; font-size:10pt">Maria Teresa Galicia DO</span></p></td></tr><tr>< td style="vertical-align:middle; width:75pt"><p style="margin:3.65pt 0pt 7.3pt& quot;><span style="font-family:'[employer]'; font-size:10pt">12/22/2010 10: 17 AM</span></p></td><td style="vertical-align:middle; width:75pt"><p style= "margin:3.65pt 0pt 7.3pt"><span style="font-family:'[employer]'; font-size: 10pt">Cytomegalovirus IgG Antibody</span></p></td><td style="vertical-align: middle; width:75pt"><p style="margin:3.65pt 0pt 7.3pt"><span style="font- family:'[employer]'; font-size:10pt">Laboratory</span></p></td><td style= "vertical-align:middle; width:60pt"><p style="margin:3.65pt 0pt 7.3pt"><span style="font-family:'[employer]'; font-size:10pt">Ordered</span></p></td>< td style="vertical-align:middle; width:90pt"><p style="margin:3.65pt 0pt 7.3pt"> <span style="font-family:'[employer]'; font-size:10pt">12/22/2010 10:17 AM</ span></p></td><td style="vertical-align:middle; width:90pt"><p style="margin: 3.65pt 0pt 7.3pt"><span style="font-family:'[employer]'; font-size:10pt"> Maria Teresa Galicia DO</span></p></td></tr><tr><td style="vertical-align:middle; width:75pt"><p style="margin:3.65pt 0pt 7.3pt"><span style="font-family:'[employer]'; font-size:10pt">12/22/2010 10:17 AM</span></p></td><td style=" vertical-align:middle; width:75pt"><p style="margin:3.65pt 0pt 7.3pt"><span style="font-family:'[employer]'; font-size:10pt">Cytomegalovirus IgM Antibody</span></p></td><td style="vertical-align:middle; width:75pt"><p style="margin:3.65pt 0pt 7.3pt"><span style="font-family:'[employer]'; font -size:10pt">Laboratory</span></p></td><td style="vertical-align:middle; width: 60pt"><p style="margin:3.65pt 0pt 7.3pt"><span style="font-family:'[employer]'; font-size:10pt">Ordered</span></p></td><td style="vertical-align:middle ; width:90pt"><p style="margin:3.65pt 0pt 7.3pt"><span style="font-family:' [employer]'; font-size:10pt">12/22/2010 10:17 AM</span></p></td><td style= "vertical-align:middle; width:90pt"><p style="margin:3.65pt 0pt 7.3pt"><span style="font-family:'[employer]'; font-size:10pt">Maria Teresa Galicia, </span>< /p></td></tr><tr><td style="vertical-align:middle; width:75pt"><p style="margin: 3.65pt 0pt 7.3pt"><span style="font-family:'[employer]'; font-size:10pt& quot;>12/22/2010 10:17 AM</span></p></td><td style="vertical-align:middle; width: 75pt"><p style="margin:3.65pt 0pt 7.3pt"><span style="font-family:'[employer]'; font-size:10pt">CBC with Diff</span></p></td><td style="vertical-align: middle; width:75pt"><p style="margin:3.65pt 0pt 7.3pt"><span style="font-family: '[employer]'; font-size:10pt">Laboratory</span></p></td><td style="vertical -align:middle; width:60pt"><p style="margin:3.65pt 0pt 7.3pt"><span style="font- family:'[employer]'; font-size:10pt">Ordered</span></p></td><td style= "vertical-align:middle; width:90pt"><p style="margin:3.65pt 0pt 7.3pt"><span style="font-family:'[employer]'; font-size:10pt">12/22/2010 10:17 AM</ span></p></td><td style="vertical-align:middle; width:90pt"><p style="margin: 3.65pt 0pt 7.3pt"><span style="font-family:'[employer]'; font-size:10pt"> Maria Teresa Galicia, </span></p></td></tr><tr><td style="vertical-align:middle; width:75pt"><p style="margin:3.65pt 0pt 7.3pt"><span style="font-family:'[employer]'; font-size:10pt">12/22/2010 10:17 AM</span></p></td><td style= "vertical-align:middle; width:75pt"><p style="margin:3.65pt 0pt 7.3pt"><span style="font-family:'[employer]'; font-size:10pt">Chemistry Profile</span></ p></td><td style="vertical-align:middle; width:75pt"><p style="margin:3.65pt 0pt 7.3pt"><span style="font-family:'[employer]'; font-size:10pt"> Laboratory</span></p></td><td style="vertical-align:middle; width:60pt"><p style ="margin:3.65pt 0pt 7.3pt"><span style="font-family:'[employer]'; font -size:10pt">Ordered</span></p></td><td style="vertical-align:middle; width:90pt "><p style="margin:3.65pt 0pt 7.3pt"><span style="font-family:'[employer]'; font-size:10pt">12/22/2010 10:17 AM</span></p></td><td style="vertical- align:middle; width:90pt"><p style="margin:3.65pt 0pt 7.3pt"><span style="font- family:'[employer]'; font-size:10pt">Maria Teresa Galicia DO</span></p></td></tr ><tr><td style="vertical-align:middle; width:75pt"><p style="margin:3.65pt 0pt 7.3pt"><span style="font-family:'[employer]'; font-size:10pt">2010 9:53 AM</span></p></td><td style="vertical-align:middle; width:75pt"><p style="margin:3.65pt 0pt 7.3pt"><span style="font-family:'[employer]'; font -size:10pt">Lactated Ringer's Infusion Careset -Clinic</span></p></td><td style= "vertical-align:middle; width:75pt"><p style="margin:3.65pt 0pt 7.3pt"><span style="font-family:'[employer]'; font-size:10pt">Clinic Careset</span></p>< /td><td style="vertical-align:middle; width:60pt"><p style="margin:3.65pt 0pt 7.3pt"><span style="font-family:'[employer]'; font-size:10pt">Completed</ span></p></td><td style="vertical-align:middle; width:90pt"><p style="margin: 3.65pt 0pt 7.3pt"><span style="font-family:'[employer]'; font-size:10pt"> 11:19 AM</span></p></td><td style="vertical-align:middle; width:90pt "><p style="margin:3.65pt 0pt 7.3pt"><span style="font-family:'[employer]' ; font-size:10pt">Maria Teresa Galicia, </span></p></td></tr><tr><td style= "vertical-align:middle; width:75pt"><p style="margin:3.65pt 0pt 7.3pt"><span style="font-family:'[employer]'; font-size:10pt">12/22/2010 9:53 AM</span></ p></td><td style="vertical-align:middle; width:75pt"><p style="margin:3.65pt 0pt 7.3pt"><span style="font-family:'[employer]'; font-size:10pt">Lactated Ringer's Infusion -Clinic</span></p></td><td style="vertical-align:middle; width :75pt"><p style="margin:3.65pt 0pt 7.3pt"><span style="font-family:'[employer]'; font-size:10pt">Clinic Charge</span></p></td><td style="vertical-align: middle; width:60pt"><p style="margin:3.65pt 0pt 7.3pt"><span style="font-family: '[employer]'; font-size:10pt">Completed</span></p></td><td style= "vertical-align:middle; width:90pt"><p style="margin:3.65pt 0pt 7.3pt"><span style="font-family:'[employer]'; font-size:10pt">12/22/2010 9:53 AM</ span></p></td><td style="vertical-align:middle; width:90pt"><p style="margin: 3.65pt 0pt 7.3pt"><span style="font-family:'[employer]'; font-size:10pt"> Maria Teresa Galicia DO</span></p></td></tr><tr><td style="vertical-align:middle; width:75pt"><p style="margin:3.65pt 0pt 7.3pt"><span style="font-family:' [employer]'; font-size:10pt">12/22/2010 9:53 AM</span></p></td><td style= "vertical-align:middle; width:75pt"><p style="margin:3.65pt 0pt 7.3pt"><span style="font-family:'[employer]'; font-size:10pt">Admin Iv Infusion, Hydration; Initial, 31 Minutes To 1 Hour -Clinic</span></p></td><td style= "vertical-align:middle; width:75pt"><p style="margin:3.65pt 0pt 7.3pt"><span style="font-family:'[employer]'; font-size:10pt">Clinic Charge</span></p></ td><td style="vertical-align:middle; width:60pt"><p style="margin:3.65pt 0pt 7.3pt"><span style="font-family:'[employer]'; font-size:10pt">Completed</ span></p></td><td style="vertical-align:middle; width:90pt"><p style="margin: 3.65pt 0pt 7.3pt"><span style="font-family:'[employer]'; font-size:10pt"> 10:30 AM</span></p></td><td style="vertical-align:middle; width: 90pt"><p style="margin:3.65pt 0pt 7.3pt"><span style="font-family:'[employer]'; font-size:10pt">Maria Teresa Galicia DO</span></p></td></tr><tr><td style= "vertical-align:middle; width:75pt"><p style="margin:3.65pt 0pt 7.3pt"><span style="font-family:'[employer]'; font-size:10pt">12/22/2010 9:53 AM</span&gt ;</p></td><td style="vertical-align:middle; width:75pt"><p style="margin:3.65pt 0pt 7.3pt"><span style="font-family:'[employer]'; font-size:10pt">IV Start -Clinic</span></p></td><td style="vertical-align:middle; width:75pt"><p style ="margin:3.65pt 0pt 7.3pt"><span style="font-family:'[employer]'; font-size :10pt">Patient Care -Clinic</span></p></td><td style="vertical-align:middle; width:60pt"><p style="margin:3.65pt 0pt 7.3pt"><span style="font-family:'[employer]'; font-size:10pt">Completed</span></p></td><td style="vertical- align:middle; width:90pt"><p style="margin:3.65pt 0pt 7.3pt"><span style="font- family:'[employer]'; font-size:10pt">12/22/2010 10:30 AM</span></p></td ><td style="vertical-align:middle; width:90pt"><p style="margin:3.65pt 0pt 7.3pt "><span style="font-family:'[employer]'; font-size:10pt">Maria Teresa Galicia, </span></p></td></tr><tr><td style="vertical-align:middle; width:75pt"><p style= "margin:3.65pt 0pt 7.3pt"><span style="font-family:'[employer]'; font- size:10pt">12/22/2010 9:53 AM</span></p></td><td style="vertical-align:middle; width:75pt"><p style="margin:3.65pt 0pt 7.3pt"><span style="font-family:'[employer]'; font-size:10pt">IV Discontinue -Clinic</span></p></td><td style= "vertical-align:middle; width:75pt"><p style="margin:3.65pt 0pt 7.3pt"><span style="font-family:'[employer]'; font-size:10pt">Patient Care -Clinic</span ></p></td><td style="vertical-align:middle; width:60pt"><p style="margin:3.65pt 0pt 7.3pt"><span style="font-family:'[employer]'; font-size:10pt"> Completed</span></p></td><td style="vertical-align:middle; width:90pt"><p style= "margin:3.65pt 0pt 7.3pt"><span style="font-family:'[employer]'; font-size: 10pt">12/22/2010 11:19 AM</span></p></td><td style="vertical-align:middle; width: 90pt"><p style="margin:3.65pt 0pt 7.3pt"><span style="font-family:'[employer]'; font-size:10pt">Maria Teresa Galicia DO</span></p></td></tr><tr><td style= "vertical-align:middle; width:75pt"><p style="margin:3.65pt 0pt 7.3pt"><span style="font-family:'[employer]'; font-size:10pt">12/22/2010 9:25 AM</span></ p></td><td style="vertical-align:middle; width:75pt"><p style="margin: 3.65pt 0pt 7.3pt"><span style="font-family:'[employer]'; font-size:10pt"> Rapid Strep-Clinic</span></p></td><td style="vertical-align:middle; width:75pt"> <p style="margin:3.65pt 0pt 7.3pt"><span style="font-family:'[employer]'; font-size:10pt">Patient Care -Clinic</span></p></td><td style="vertical-align: middle; width:60pt"><p style="margin:3.65pt 0pt 7.3pt"><span style="font-family: '[employer]'; font-size:10pt">Completed</span></p></td><td style="vertical- align:middle; width:90pt"><p style="margin:3.65pt 0pt 7.3pt"><span style="font- family:'[employer]'; font-size:10pt">12/22/2010 10:28 AM</span></p></td><td style="vertical-align:middle; width:90pt"><p style="margin:3.65pt 0pt 7.3pt">< span style="font-family:'[employer]'; font-size:10pt">Maria Teresa Galicia DO</ span></p></td></tr><tr><td style="vertical-align:middle; width:75pt"><p style ="margin:3.65pt 0pt 7.3pt"><span style="font-family:'[employer]'; font-size :10pt">12/22/2010 10:18 AM</span></p></td><td style="vertical-align:middle; width:75pt"><p style="margin:3.65pt 0pt 7.3pt"><span style="font-family:'[employer]'; font-size:10pt">Specimen Collect Clinic Charge -Clinic</span></p></ td><td style="vertical-align:middle; width:75pt"><p style="margin:3.65pt 0pt 7.3pt"><span style="font-family:'[employer]'; font-size:10pt">Laboratory - Clinic</span></p></td><td style="vertical-align:middle; width:60pt"><p style= "margin:3.65pt 0pt 7.3pt"><span style="font-family:'[employer]'; font-size: 10pt">Completed</span></p></td><td style="vertical-align:middle; width:90pt"><p style="margin:3.65pt 0pt 7.3pt"><span style="font-family:'[employer]' ; font-size:10pt">12/22/2010 10:18 AM</span></p></td><td style="vertical-align: middle; width:90pt"><p style="margin:3.65pt 0pt 7.3pt"><span style="font-family: '[employer]'; font-size:10pt">Maria Teresa Galicia DO</span></p></td></tr></ table><p style="margin:3.65pt 0pt 7.3pt"><span style="font-family:'[employer]'; font-size:10pt"></span></p><p style="margin:3.65pt 0pt 7.3pt"><span style="display:none; font-family:'[employer]'; font-size:11pt"><%END%></ span></p><p style="margin:0pt"><span style="font-family:'times new j carlos'; font- size:12pt"></span></p><p style="margin:0pt"><span style="font-family:arial; font-size:12pt; font-weight:bold">MEDICAL INFORMATION</span></p><p style="margin :0pt"><span style="font-family:arial; font-size:10pt"> Allergy Info: </span></p> <p style="margin:0pt"><span style="font-family:arial; font-size:8pt"> </span>< span style="display:none; font-family:arial; font-size:10pt"><%ALLERGY%></span>< span style="font-family:arial; font-size:10pt">NKA</span><span style="display: none; font-family:arial; font-size:10pt"><%END%></span></p><p style="margin:0pt "><span style="font-family:'times new j carlos'; font-size:12pt"></span></p><p style="margin:0pt"><span style="font-family:arial; font-size:12pt; font-weight: bold">HOME MEDICATIONS</span></p><p style="margin:0pt"><span style="display: none; font-family:arial; font-size:10pt"><%[facility]TH[facility]_DEPART_HOME_MEDS%></span>< span style="font-family:'[employer]'; font-size:11pt; font-weight:bold"> azithromycin 500 mg oral tablet</span><span style="font-family:'[employer]' ; font-size:11pt"> 500 mg, 1 Tab, 6 Day(s), Daily</span> <span style="font-family:'[employer]'; font-size:11pt; font-weight:bold"> doxycycline hyclate 100 mg oral capsule</span><span style="font-family:'[employer]'; font-size:11pt"> 100 mg, 1 Cap, Every 24 hours</span> <span style="font-family:'[employer]'; font-size:11pt; font-weight:bold"> Lortab Elixir 7.5 mg-500 mg/15 mL oral elixir</span><span style="font-family:' [employer]'; font-size:11pt"> 15 mL, PRN, Every 6 hours</span> <span style="font-family:'[employer]'; font-size:11pt; font-weight:bold"> omeprazole 20 mg oral enteric coated capsule</span><span style="font-family:' [employer]'; font-size:11pt"> 20 mg, 1 Cap, 2 times a day</span> <span style="font-family:'[employer]'; font-size:11pt">Please bring this list to your next doctor(s) visit. Update your medication list when any medications are stopped, doses are changed or new medications are added. Add any over the counter medications, vitamins or herbals to your list. Carry this medication list with you at all times so in the event of an emergency situation your Doctor or Nurse can provide you with the best and safest care.</span></p ><p style="margin:0pt"><span style="font-family:'[employer]'; font-size: 11pt"></span></p><p style="margin:0pt"><span style="display:none; font-family: arial; font-size:10pt"><%END%></span></p><p style="margin:0pt"><span style="font -family:'times new j carlos'; font-size:12pt"></span></p><p style="margin:0pt">< span style="font-family:arial; font-size:12pt; font-weight:bold">DISCHARGE INFORMATION</span></p><p style="margin:0pt"><span style="font-family:arial; font -size:10pt"> Discharge Disposition: </span><span style="display:none; font- family:arial; font-size:10pt"><%DISDISP%></span><span style="display:none; font- family:arial; font-size:10pt"><%END%></span></p><p style="margin:0pt"><span style="font-family:arial; font-size:10pt"> Discharge Location: </span><span style="display:none; font-family:arial; font-size:10pt"><%DISLOC%></span><span style="display:none; font-family:arial; font-size:10pt"><%END%></span></p><p style="margin:0pt"><span style="font-family:'times new j carlos'; font-size: 12pt"></span></p><p style="margin:0pt"><span style="font-family:arial; font- size:12pt; font-weight:bold">PATIENT EDUCATION INFORMATION</span></p><p style="margin:0pt"><span style="font-family:arial; font-size:10pt"> Instructions :</span></p><p style="margin:0pt"><span style="font-family:arial; font-size:10pt "> </span><span style="display:none; font-family:arial; font-size:10pt"><% DISINSTRUCT%></span><span style="font-family:arial; font-size:10pt"> MONONUCLEOSIS</span><span style="display:none; font-family:arial; font-size:10pt "><%END%></span></p><p style="margin:0pt"><span style="font-family:arial; font- size:10pt"> Follow up:</span></p><p style="margin:0pt"><span style="font-family: arial; font-size:10pt"></span></p><p style="margin:3.65pt 0pt 7.3pt">< span style="display:none; font-family:'[employer]'; font-size:11pt"><% FOLLOWUPTABLE%></span><span style="display:none; font-family:'[employer]'; font-size:11pt"><%END%></span></p><p style="margin:0pt"><span style="font-family :'times new j carlos'; font-size:12pt"></span></p><p style="margin:0pt"><span style="font-family:arial; font-size:12pt; font-weight:bold">DIAGNOSIS</span></p> <p style="margin:0pt"><span style="display:none; font-family:arial; font-size: 8pt"><%DIAGNOSIS%></span><span style="font-family:arial; font-size:8pt">Acute pharyngitis NOS; Tonsillitis NOS; DEHYDRATION; Lymphadenopathy; HEPATOMEGALY</ span><span style="display:none; font-family:arial; font-size:8pt"><%END%></span> </p><p style="margin:0pt"><span style="font-family:'times new j carlos'; font-size: 12pt"></span></p><p style="margin:0pt"><span style="font-family:'times new j carlos'; font-size:12pt"></span></p><p style="margin:0pt"><span style="font- family:'times new j carlos'; font-size:12pt"></span></p><p style="margin:0pt">< span style="font-family:'times new j carlos'; font-size:12pt"></span></p><p style= "margin:0pt"><span style="font-family:'times new j carlos'; font-size:12pt">< /span></p><p style="margin:0pt"><span style="font-family:'times new j carlos' ; font-size:12pt"></span></p><p style="margin:3.65pt 0pt 7.3pt"><span style= "font-family:'times new j carlos'; font-size:12pt"></span></p></div> 12/22/2010 [facility] Urgent Care Note Patient: SANIA CARBONE Age: 20 years Sex: Female : 1990 Associated Diagnoses: None Author: Emanuel Pedraza, [employer]- Basic Information Vital signs: Oxygen saturation: Oxygen Therapy & Oxygenation Information, 03/01/2011 10:15 Oxygen Therapy Room air Oxygen Saturation 99 % Measurements. 03/01/2011 10:15 Height 167.0 cm Weight 66.600 kg BSA 1.7577 m2 Body Mass Index 23.9 Medications: . Prescriptions and Home Medications doxycycline (doxycycline hyclate 100 mg oral capsule), 100 mg, 1 Cap, PO, Q24H, 30 TB omeprazole (omeprazole 20 mg oral enteric coated capsule), 20 mg, 1 Cap, PO, BID , 180 Cap Allergies: . Allergic Reactions (Selected) NKA History of Present Illness The patient is a 20 years old Female who presents with throat pain. The onset was abrupt. Duration lasting 3 day(s). The course is increasing. Location: throat. Associated Symptoms Other constitutional symptoms: Chills. Fever: 101.8 degrees fahrenheit. Eye symptoms: no Discharge ENT: Throat. Swallowing: no difficulty swallowing liquids no difficulty swallowing solids. Other respiratory symptoms: Cough, wheezing. Shortness of breath: Negative. Gastrointestinal symptoms: no vomiting no diarrhea. Voice Hoarse. Review of Systems Cardiovascular symptoms: No chest pain, Genitourinary symptoms: no Dysuria Musculoskeletal symptoms: no Muscle pain, no Joint pain. Skin symptoms: No rash, Past Medical/ Family/ Social History Medical history: Reviewed as documented in chart (today). Surgical history: Reviewed as documented in chart (today). Family history: Reviewed as documented in chart (today). Social history: Reviewed as documented in chart (today). Problem list: Per nurse's notes. Physical Examination General appearance: No acute distress. Airway: Patent. Respiratory: Lungs clear to auscultation bilaterally. Respirations nonlabored. Eye: Normal conjuctiva Ear: the left TM has air fluid level, not within normal limits. Throat: Pharynx uvula midline erythema tonsils are pustular and +3 and very erythemic Neck: Enlarged nodes, bilateral anterior cervical chains enlarged. Heart: Regular rate and rhythm, normal S1 & S2, no extra heart sounds, no murmurs. Abdominal: Soft. Nontender. Extremity: No swelling Neurological: Alert and oriented times 3 Medical Decision Making Clinical work-up/Interpretation Orders: Launch Orders.... Patient Care -Clinic: Quick Clinic Visit -Clinic (Completed): 03/01/2011 10:38, Strep pharyngitis Impression and Plan Strep pharyngitis (ICD9 034.0, Discharge, Medical) Lymphadenopathy (ICD9 785.6, Discharge, Medical) Discharge plan Dispositioned: Time 03/01/2011 10:38:00, To home. Prescriptions: PowerOrders. Pharmacy: Pen-V 500 mg oral tablet (Ordered): 500 mg, 1 Tab, PO, Q8H, 30 Tab Counseled: Patient, Family, Regarding diagnosis, Regarding treatment plan, Regarding diagnostic results, Regarding prescription. Notes: Strep instructions Rx pen V k OTC Claritin for fluid in the ear. 03/01/2011 [facility] Amb Nurs Intake Event Amb Nurs Intake Event 2010 [facility] SMEG-Healthcare Goals 1 SMEG-Healthcare Goals 1 No No Yes No No No No No No No 09/18/2010 [facility] Office/Clinic Notes Office/Clinic Notes <div><p style="margin:0pt; text-align:center"><span style= "background-color:#ffffff; font-family:[place]; font-size:10pt; font-weight:bold"> [facility]</span></p><p style="margin:0pt; text-align: center"><span style="background-color:#ffffff; font-family:[place]; font-size:10pt ; font-weight:bold">[address] [facility]</span></p><p style="margin:0pt; text -align:center"><span style="background-color:#ffffff; font-family:[place]; font- size:10pt; font-weight:bold">[place] [address]</span></p><p style="margin: 0pt; text-align:center"><span style="background-color:#ffffff; font-family:[place] ; font-size:10pt; font-weight:bold">[phone] </span></p><p style="margin:0pt; text-align:center"><span style="font-family:[place]; font-size: 10pt; font-weight:bold"></span></p><p style="margin:0pt"><span style= "background-color:#ffffff; font-family:[place]; font-size:10pt">PATIENT: SANIA CARBONE LESLIE</span></p><p style="margin:0pt"><span style="background-color:# ffffff; font-family:[place]; font-size:10pt">MR #: [id number]</span></p><p style= "margin:0pt"><span style="background-color:#ffffff; font-family:[place]; font -size:10pt"> </span></p><p style="margin:0pt"><span style= "background-color:#ffffff; font-family:[place]; font-size:10pt">: 1989</span></p><p style="margin:0pt"><span style="background-color:#ffffff; font -family:[place]; font-size:10pt">DATE SEEN: 11/14/2010</span></p><p style="margin: 0pt"><span style="font-family:[place]; font-size:12pt"></span></p><p style= "margin:0pt"><span style="font-family:[place]; font-size:10pt"></span></p><p style="margin:0pt"><span style="font-family:[place]; font-size:10pt"></span></p>< p style="margin:0pt"><span style="background-color:#ffffff; font-family:[place]; font-size:10pt">X</span><span style="background-color:#ffffff; font-family:[place] ; font-size:10pt">-RAY CHEST</span></p><p style="margin:0pt"><span style= "background-color:#ffffff; font-family:[place]; font-size:10pt">PA view shows normal soft tissue structures without free air. Bony structures appear to be normal without signs of fracture. Trachea is midline without shift. Spine appears to be normal on what is visible on this view. Cardiac silhouette is normal in size without enlargement. Lung tissues are free of infiltrate, mass or granulomatous change. No sign of congestive failure. No pleural effusion. No free air under the diaphragm. </span></p><p style="margin:0pt"><span style="font -family:[place]; font-size:10pt"></span></p><p style="margin:0pt"><span style= "background-color:#ffffff; font-family:[place]; font-size:10pt">Lateral view would indicate cardiac silhouette to be normal in appearance. Borders noted to be normal in appearance. No posterior infiltrate. No flattening of the diaphragm. Bony structures appear to be normal without degenerative change or fracture. Soft tissue structures otherwise appear to be normal. </span></p><p style="margin:0pt"><span style="font-family:[place]; font-size:10pt"> </ span></p><p style="margin:0pt"><span style="background-color:#ffffff; font- family:[place]; font-size:10pt">Impression: Negative 2-view chest.</span></p><p style="margin:0pt"><span style="font-family:[place]; font-size:10pt"></span></p>< p style="margin:0pt"><span style="font-family:[place]; font-size:10pt"></span></p ><p style="margin:0pt"><span style="background-color:#ffffff; font-family:[place] ; font-size:10pt">TR:</span><span style="width:14.48pt; text-indent:0pt; display :inline-block; -sp-qsxkzgj-pjfzh:left; -kg-jbvnqqt-uxc:30pt"></span><span style= "background-color:#ffffff; font-family:[place]; font-size:10pt">[facility]</span></p> <p style="margin:0pt"><span style="background-color:#ffffff; font-family:[place]; font-size:10pt">DD:</span><span style="width:12.63pt; text-indent:0pt; display: inline-block; -an-katlsbo-xugiw:left; -mn-nchupil-kxk:30pt"></span><span style= "background-color:#ffffff; font-family:[place]; font-size:10pt">6</span><span style="background-color:#ffffff; font-family:[place]; font-size:10pt"> 1657</span></p><p style="margin:0pt"><span style="background-color:#ffffff ; font-family:[place]; font-size:10pt">DT:</span><span style="width:13.31pt; text- indent:0pt; display:inline-block; -ws-keyimeh-gfolz:left; -bm-wvvszks-wjm:30pt"& gt;</span><span style="background-color:#ffffff; font-family:[place]; font-size: 10pt">11/21/2010 13:10</span></p><p style="margin:0pt"><span style="font-family: [place]; font-size:10pt"></span></p><p style="margin:0pt"><span style= "background-color:#ffffff; font-family:[place]; font-size:10pt">JJ#:</span><span style="width:2.84pt; text-indent:0pt; display:inline-block; -mv-setpkiv-ilcoy: left; -yh-vbcpdhf-sjr:30pt"></span><span style="background-color:#ffffff; font- family:[place]; font-size:10pt">104</span><span style="background-color:#ffffff; font-family:[place]; font-size:10pt">6862</span></p><p style="margin:0pt"><span style="font-family:[place]; font-size:10pt"></span></p></div> [Electronically Signed on 11.24.2010 07:07 am]
Maria Teresa Galicia DO
</br> 11/14/2010 [Electronically Signed on 11.24.2010 07:07 am] Maria Teresa Galicia DO [facility] Ambulatory Depart Summary Ambulatory Depart Summary <div><p style="margin:0pt; text-align:center"><span style="display:none; font-family:'[place]'; font-size:11pt"><%[facility]_ CLINIC_HEADER_UDT%></span><span style="font-family:'[place]'; font- size:12pt; font-weight:bold">[facility]</span> <span style="font-family:'[place]'; font-size:12pt; font-weight:bold"> [address] [facility]</span> <span style="font-family:'[place] car[place]'; font-size:12pt; font-weight:bold"> [place] [address]</span> <span style="font-family:'[place]'; font-size:12pt; font-weight:bold"> [phone] </span> <span style="font-family:'[place]'; font-size:12pt"></span></p><p style ="margin:0pt; text-align:center"><span style="font-family:'[place]'; font-size:12pt"></span></p><p style="margin:3.65pt 0pt 7.3pt"><span style= "display:none; font-family:'[place]'; font-size:11pt"><%END%></span>< span style="font-family:'[place]'; font-size:11pt"> </span></p><p style= "margin:0pt"><span style="font-family:'times [place]'; font-size:12pt"> < /span></p><p style="margin:0pt"><span style="font-family:arial; font-size:12pt; font-weight:bold">PERSON INFORMATION</span><span style="font-family:'times [place] carlos'; font-size:12pt"> </span></p><table cellspacing="0" cellpadding="0" style ="border-collapse:collapse; margin-left:0pt"><tr><td style="vertical-align:top; width:174.25pt"><p style="margin:0pt"><span style="font-family:arial; font- size:8pt; font-weight:bold">Name </span><span style="display:none; font-family: arial; font-size:8pt"><%NAME%></span><span style="font-family:arial; font- size:8pt">SANIA CARBONE</span><span style="display:none; font-family: arial; font-size:8pt"><%END%></span></p></td><td style="vertical-align:top; width:174.25pt"><p style="margin:0pt"><span style="font-family:arial; font-size: 8pt; font-weight:bold">Age </span><span style="display:none; font-family:arial; font-size:8pt"><%AGE%></span><span style="font-family:arial; font-size:8pt"> 20 Years</span><span style="display:none; font-family:arial; font-size:8pt"><% END%></span></p></td><td style="vertical-align:top; width:174.25pt"><p style= "margin:0pt"><span style="font-family:arial; font-size:8pt; font-weight:bold"> </span><span style="display:none; font-family:arial; font-size:8pt"><%%>< /span><span style="font-family:arial; font-size:8pt">1990</span><span style="display:none; font-family:arial; font-size:8pt"><%END%></span></p></td></ tr><tr><td style="vertical-align:top; width:174.25pt"><p style="margin:0pt">< span style="font-family:arial; font-size:8pt; font-weight:bold">Sex </span> <span style="display:none; font-family:arial; font-size:8pt"><%GENDER%></span>< span style="font-family:arial; font-size:8pt">Female</span><span style="display: none; font-family:arial; font-size:8pt"><%END%></span></p></td><td style= "vertical-align:top; width:174.25pt"><p style="margin:0pt"><span style="font- family:arial; font-size:8pt; font-weight:bold">Language </span><span style= "display:none; font-family:arial; font-size:8pt"><%LANGUAGE%></span><span style= "font-family:arial; font-size:8pt">Swedish</span><span style="display:none; font -family:arial; font-size:8pt"><%END%></span></p></td><td style="vertical-align: top; width:174.25pt"><p style="margin:0pt"><span style="font-family:arial; font- size:8pt; font-weight:bold">PCP </span><span style="display:none; font-family: arial; font-size:8pt"><%PCP%></span><span style="font-family:arial; font-size: 8pt">Maria Teresa Galicia, </span><span style="display:none; font-family:arial; font -size:8pt"><%END%></span></p></td></tr><tr><td style="vertical-align:top; width:174.25pt"><p style="margin:0pt"><span style="font-family:arial; font-size: 8pt; font-weight:bold">Marital Status </span><span style="display:none; font- family:arial; font-size:8pt"><%MARITALSTAT%></span><span style="font-family: arial; font-size:8pt">Single</span><span style="display:none; font-family:arial ; font-size:8pt"><%END%></span></p></td><td style="vertical-align:top; width: 174.25pt"><p style="margin:0pt"><span style="font-family:arial; font-size: 8pt; font-weight:bold">Phone </span><span style="display:none; font-family:arial ; font-size:8pt"><%PHONE%></span><span style="font-family:arial; font-size:8pt"> </span><span style="display:none; font-family:arial; font-size:8pt "><%END%></span></p></td><td style="vertical-align:top; width:174.25pt"><p style ="margin:0pt"><span style="font-family:arial; font-size:8pt; font-weight:bold"> Time Zone </span><span style="display:none; font-family:arial; font-size:8pt"><% TIMEZONE%></span><span style="display:none; font-family:arial; font-size: 8pt"><%END%></span></p></td></tr><tr><td style="vertical-align:top; width: 174.25pt"><p style="margin:0pt"><span style="font-family:arial; font-size:8pt; font-weight:bold">MRN </span><span style="display:none; font-family:arial; font- size:8pt"><%ALIASPMRN%></span><span style="font-family:arial; font-size:8pt"> [id number]</span><span style="display:none; font-family:arial; font-size:8pt"><%END% ></span></p></td><td style="vertical-align:top; width:174.25pt"><p style="margin :0pt"><span style="font-family:arial; font-size:8pt; font-weight:bold">Visit Id </span><span style="display:none; font-family:arial; font-size:8pt"><% ALIASEVISITID%></span><span style="display:none; font-family:arial; font-size: 8pt"><%END%></span></p></td><td style="vertical-align:top; width:174.25pt"><p style="margin:0pt"><span style="font-family:arial; font-size:8pt; font-weight: bold">Acct# </span><span style="display:none; font-family:arial; font-size:8pt"> <%ALIASEFIN NBR%></span><span style="font-family:arial; font-size:8pt"> [id number]</span><span style="display:none; font-family:arial; font-size:8pt"><% END%></span></p></td></tr><tr><td style="vertical-align:top; width:174.25pt"><p style="margin:0pt"><span style="font-family:arial; font-size:8pt; font-weight: bold">Visit Reason </span><span style="display:none; font-family:arial; font- size:8pt"><%RFV%></span><span style="font-family:arial; font-size:8pt">SORE THROAT/CONGESTION</span><span style="display:none; font-family:arial; font-size: 8pt"><%END%></span></p></td><td style="vertical-align:top; width:174.25pt"><p style="margin:0pt"><span style="font-family:arial; font-size:8pt; font-weight: bold">Specialty </span><span style="display:none; font-family:arial; font-size: 8pt"><%SPECIALTY%></span><span style="display:none; font-family:arial; font-size :8pt"><%END%></span></p></td><td style="vertical-align:top; width:174.25pt"><p style="margin:0pt"><span style="font-family:'times [place]'; font-size: 12pt"></span></p></td></tr><tr><td style="vertical-align:top; width:174.25pt">< p style="margin:0pt"><span style="font-family:arial; font-size:8pt; font-weight: bold">Enc Type </span><span style="display:none; font-family:arial; font-size: 8pt"><%ENCNTRTYPE%></span><span style="font-family:arial; font-size:8pt"> [facility]</span><span style="display:none; font-family:arial; font-size: 8pt"><%END%></span></p></td><td style="vertical-align:top; width:174.25pt"><p style="margin:0pt"><span style="font-family:arial; font-size:8pt; font-weight: bold">Med Service </span><span style="display:none; font-family:arial; font-size :8pt"><%MEDSERVICE%></span><span style="font-family:arial; font-size:8pt"> PHYSOFF-Physician Office</span><span style="display:none; font-family:arial; font-size:8pt"><%END%></span></p></td><td style="vertical-align:top; width: 174.25pt"><p style="margin:0pt"><span style="font-family:arial; font-size:8pt; font-weight:bold">Referred by </span><span style="display:none; font-family: arial; font-size:8pt"><%REFERREDBY%></span><span style="display:none; font- family:arial; font-size:8pt"><%END%></span></p></td></tr><tr><td style="vertical -align:top; width:174.25pt"><p style="margin:0pt"><span style="font-family:arial ; font-size:8pt; font-weight:bold">[facility]</span><span style="font-family: arial; font-size:8pt"> </span><span style="display:none; font-family:arial; font -size:8pt"><%TRACKGROUP%></span><span style="font-family:arial; font-size:8pt"> Clinic Discharge Process</span><span style="display:none; font-family:arial; font-size:8pt"><%END%></span></p></td><td style="vertical-align:top; width: 174.25pt"><p style="margin:0pt"><span style="font-family:arial; font-size: 8pt; font-weight:bold">Discharge </span><span style="display:none; font-family: arial; font-size:8pt"><%DISCHDTTM%></span><span style="display:none; font-family :arial; font-size:8pt"><%END%></span></p></td><td style="vertical-align:top; width:174.25pt"><p style="margin:0pt"><span style="font-family:'times [place] carlos'; font-size:12pt"></span></p></td></tr><tr><td style="vertical-align:top ; width:174.25pt"><p style="margin:0pt"><span style="font-family:arial; font- size:8pt; font-weight:bold">Tracking Id </span><span style="display:none; font- family:arial; font-size:8pt"><%TRACKINGID%></span><span style="display:none; font-family:arial; font-size:8pt"><%END%></span></p></td><td style="vertical- align:top; width:174.25pt"><p style="margin:0pt"><span style="font-family:arial ; font-size:8pt; font-weight:bold">Checkout </span><span style="display:none; font-family:arial; font-size:8pt"><%CHECKOUTDTTM%></span><span style="display: none; font-family:arial; font-size:8pt"><%END%></span></p></td><td style= "vertical-align:top; width:174.25pt"><p style="margin:0pt"><span style="font- family:'times new j carlos'; font-size:12pt"></span></p></td></tr><tr><td style= "vertical-align:top; width:174.25pt"><p style="margin:0pt"><span style="font- family:arial; font-size:8pt; font-weight:bold">Checkin </span><span style= "display:none; font-family:arial; font-size:8pt"><%CHECKINDTTM%></span><span style="display:none; font-family:arial; font-size:8pt"><%END%></span></p></td>< td style="vertical-align:top; width:174.25pt"><p style="margin:0pt"><span style= "font-family:arial; font-size:8pt; font-weight:bold">Acuity </span><span style= "display:none; font-family:arial; font-size:8pt"><%ACUITY%></span><span style= "display:none; font-family:arial; font-size:8pt"><%END%></span></p></td>< td style="vertical-align:top; width:174.25pt"><p style="margin:0pt"><span style= "font-family:arial; font-size:8pt; font-weight:bold">Dispo Type </span><span style="display:none; font-family:arial; font-size:8pt"><%DISDISP%></span><span style="display:none; font-family:arial; font-size:8pt"><%END%></span></p></td ></tr><tr><td style="vertical-align:top; width:174.25pt"><p style="margin:0pt">< span style="font-family:arial; font-size:8pt; font-weight:bold">Arrival </span>& lt;span style="display:none; font-family:arial; font-size:8pt"><%ARRIVALDTTM%></ span><span style="font-family:arial; font-size:8pt">11/14/2010 12:56 PM</span>< span style="display:none; font-family:arial; font-size:8pt"><%END%></span></p></ td><td style="vertical-align:top; width:174.25pt"><p style="margin:0pt"><span style="font-family:arial; font-size:8pt; font-weight:bold">Reg Status </span>< span style="display:none; font-family:arial; font-size:8pt"><%REGSTATUS%></span> <span style="display:none; font-family:arial; font-size:8pt"><%END%></span></p>< /td><td style="vertical-align:top; width:174.25pt"><p style="margin:0pt"><span style="font-family:arial; font-size:8pt; font-weight:bold">LOS </span><span style="display:none; font-family:arial; font-size:8pt"><%LOSTRACK%></span><span style="display:none; font-family:arial; font-size:8pt"><%END%></span></p></td></ tr></table><p style="margin:0pt"><span style="font-family:arial; font-size:8pt; font-weight:bold">Address:</span></p><p style="margin:0pt"><span style="font- family:arial; font-size:8pt"> </span><span style="display:none; font-family: arial; font-size:8pt"><%ADDRESS%></span><span style="font-family:arial; font- size:8pt">[address] [facility] [place] [address]</span><span style="display:none; font-family:arial; font-size:8pt"><%END%></span><span style="font-family:arial; font-size:8pt"> </span></p><p style="margin:0pt"><span style="font-family:' times [place]los'; font-size:12pt; font-weight:bold"></span></p><p style="margin :0pt"><span style="font-family:arial; font-size:12pt; font-weight:bold"> PHYS DOC NOTES</span></p><p style="margin:0pt"><span style="display:none; font- family:arial; font-size:8pt"><%PHYDOC%></span><span style="display:none; font -family:arial; font-size:8pt"><%END%></span><span style="font-family:arial; font -size:8pt"> </span></p><p style="margin:0pt"><span style="font-family:'times [place] j carlos'; font-size:12pt"></span></p><p style="margin:0pt"><span style="font- family:arial; font-size:12pt; font-weight:bold">PROVIDER INFORMATION</span>< span style="font-family:'times new j carlos'; font-size:12pt"> </span></p><p style= "margin:0pt"><span style="font-family:arial; font-size:8pt"></span></p><p style ="margin:3.65pt 0pt 7.3pt"><span style="display:none; font-family:'[employer] [place]'; font-size:11pt"><%PROVROLETBL%></span><span style="display:none; font- family:'[employer] [place]'; font-size:11pt"><%END%></span></p><p style="margin:0pt "><span style="font-family:'times new j carlos'; font-size:12pt"></span></p><p style="margin:0pt"><span style="font-family:arial; font-size:12pt; font-weight: bold">VITALS INFORMATION</span></p><table cellspacing="0" cellpadding="0" style="border-collapse:collapse; margin-left:0pt"><tr><td style="vertical-align: middle; width:264pt"><p style="margin:0pt"><span style="display:none; font- family:'[employer] [place]'; font-size:11pt"><%[facility]_DEPART_CLIN_VITALS%></span>< span style="font-family:'[employer] [place]'; font-size:11pt; font-weight:bold"> Height:</span><span style="font-family:'[place]'; font-size:11pt"> 5ft 6.1in</span></p></td><td style="vertical-align:middle; width:264pt"><p style= "margin:0pt"><span style="font-family:'[employer] [place]'; font-size:11pt; font- weight:bold">Weight:</span><span style="font-family:'[place]'; font-size :11pt"> 148.15 lbs (BMI: 23.8)</span></p></td></tr><tr><td style="vertical- align:middle; width:264pt"><p style="margin:0pt"><span style="font-family:' [place]'; font-size:11pt; font-weight:bold">Temp:</span><span style ="font-family:'[employer] [place]'; font-size:11pt"> 98.2 F</span></p></td><td style="vertical-align:middle; width:264pt"><p style="margin:0pt"><span style= "font-family:'[employer] [place]'; font-size:11pt; font-weight:bold">Heart Rate:</ span><span style="font-family:'[employer] [place]'; font-size:11pt"> 95</span> </p></td></tr><tr><td style="vertical-align:middle; width:264pt"><p style= "margin:0pt"><span style="font-family:'[employer] [place]'; font-size:11pt; font- weight:bold">Respiratory:</span><span style="font-family:'[employer] [place]'; font -size:11pt"> 18</span></p></td><td style="vertical-align:middle; width:264pt">< p style="margin:0pt"><span style="font-family:'[employer] [place]'; font-size:11pt ; font-weight:bold">O2 Sat:</span><span style="font-family:'[employer] [place] Carlos&apos ;; font-size:11pt"> 99</span></p></td></tr><tr><td colspan="2" style="vertical- align:middle; width:528pt"><p style="margin:0pt"><span style="font-family:' [employer] [place]'; font-size:11pt; font-weight:bold">BP:</span><span style="font- family:'[employer] [place]'; font-size:11pt"> 100/64</span></p></td></tr><tr style= "height:0pt"><td style="width:264pt; border:none"></td><td style="width:264pt; border:none"></td></tr></table><p style="margin:3.65pt 0pt 7.3pt"><span style= "font-family:'[employer] [place]'; font-size:11pt"></span></p><p style="margin:0pt "><span style="display:none; font-family:'times new j carlos'; font-size:12pt" ><%END%></span></p><p style="margin:0pt"><span style="font-family:'times new j carlos'; font-size:12pt"></span></p><p style="margin:0pt"><span style="font -family:arial; font-size:12pt; font-weight:bold">LOCATION INFORMATION</span></p> <p style="margin:0pt"><span style="font-family:arial; font-size:8pt"> </ span></p><table cellspacing="0" cellpadding="0" style="border-collapse:collapse ; margin-left:0pt"><tr><td style="vertical-align:top; width:112.5pt"><p style=& quot;margin:3.65pt 0pt 7.3pt"><span style="display:none; font-family:'[employer] [place]'; font-size:11pt; font-weight:normal"><%LOCTBL%></span><span style="font- family:'[employer] [place]'; font-size:10pt; font-weight:bold">Arrival</span></p></ td><td style="vertical-align:top; width:112.5pt"><p style="margin:3.65pt 0pt 7.3pt"><span style="font-family:'[employer] [place]'; font-size:10pt; font-weight: bold">Nurse Unit</span></p></td><td style="vertical-align:top; width:112.5pt">< p style="margin:3.65pt 0pt 7.3pt"><span style="font-family:'[employer] [place]'; font-size:10pt; font-weight:bold">Room</span></p></td><td style="vertical-align: top; width:112.5pt"><p style="margin:3.65pt 0pt 7.3pt"><span style="font- family:'[employer] [place]'; font-size:10pt; font-weight:bold">Bed</span></p></td>< /tr><tr><td style="vertical-align:middle; width:112.5pt"><p style="margin: 3.65pt 0pt 7.3pt"><span style="font-family:'[employer] [place]'; font-size:11pt">< /span></p></td><td style="vertical-align:middle; width:112.5pt"><p style= "margin:3.65pt 0pt 7.3pt"><span style="font-family:'[employer] [place]'; font-size: 11pt"></span></p></td><td style="vertical-align:middle; width:112.5pt"><p style="margin:3.65pt 0pt 7.3pt"><span style="font-family:'Times [place] J Carlos'; font -size:11pt"></span></p></td><td style="vertical-align:middle; width:112.5pt">< p style="margin:3.65pt 0pt 7.3pt"><span style="font-family:'[employer] Carlos'; font-size:11pt"></span></p></td></tr></table><p style="margin:3.65pt 0pt 7.3pt "><span style="font-family:'[employer] Carlos'; font-size:11pt"></span></p><p style="margin:3.65pt 0pt 7.3pt"><span style="display:none; font-family:'[employer] Carlos'; font-size:11pt"><%END%></span></p><p style="margin:0pt"><span style= "font-family:'times new j carlos'; font-size:12pt"></span></p><p style="margin:0pt "><span style="font-family:arial; font-size:12pt; font-weight:bold">ORDERS INFORMATION</span></p><p style="margin:0pt"><span style="font-family:arial; font -size:8pt"></span></p><table cellspacing="0" cellpadding="0" style="border- collapse:collapse; margin-left:0pt"><tr><td style="vertical-align:top; width: 75pt"><p style="margin:3.65pt 0pt 7.3pt"><span style="display:none; font-family: '[employer] Carlos'; font-size:11pt; font-weight:normal"><%ORDNRESTBL%></span>< span style="font-family:'[employer] Carlos'; font-size:10pt; font-weight:bold"> Start Time</span></p></td><td style="vertical-align:top; width:75pt"><p style= "margin:3.65pt 0pt 7.3pt"><span style="font-family:'[employer] Carlos'; font-size: 10pt; font-weight:bold">Order</span></p></td><td style="vertical-align:top; width:75pt"><p style="margin:3.65pt 0pt 7.3pt"><span style="font-family:'[employer] Carlos'; font-size:10pt; font-weight:bold">Type</span></p></td><td style= "vertical-align:top; width:60pt"><p style="margin:3.65pt 0pt 7.3pt"><span style= "font-family:'[employer] Carlos'; font-size:10pt; font-weight:bold">Status</span>< /p></td><td style="vertical-align:top; width:90pt"><p style="margin:3.65pt 0pt 7.3pt"><span style="font-family:'[employer] Carlos'; font-size:10pt; font- weight:bold">Stop Time</span></p></td><td style="vertical-align:top; width:90pt "><p style="margin:3.65pt 0pt 7.3pt"><span style="font-family:'[employer] J Carlos' ; font-size:10pt; font-weight:bold">Provider</span></p></td></tr><tr><td style="vertical-align:middle; width:75pt"><p style="margin:3.65pt 0pt 7.3pt">< span style="font-family:'[employer] J Carlos'; font-size:10pt">11/14/2010 2:12 PM</ span></p></td><td style="vertical-align:middle; width:75pt"><p style="margin: 3.65pt 0pt 7.3pt"><span style="font-family:'[employer] Carlos'; font-size:10pt"> DX Chest 2 View</span></p></td><td style="vertical-align:middle; width:75pt"> <p style="margin:3.65pt 0pt 7.3pt"><span style="font-family:'[employer] J Carlos'; font-size:10pt">Radiology</span></p></td><td style="vertical-align:middle; width :60pt"><p style="margin:3.65pt 0pt 7.3pt"><span style="font-family:'Times [employer] J Carlos'; font-size:10pt">Ordered</span></p></td><td style="vertical-align:middle ; width:90pt"><p style="margin:3.65pt 0pt 7.3pt"><span style="font-family:' [employer] J Carlos'; font-size:10pt">11/14/2010 2:12 PM</span></p></td><td style= "vertical-align:middle; width:90pt"><p style="margin:3.65pt 0pt 7.3pt"><span style="font-family:'Times [employer] J Carlos'; font-size:10pt">Maria Teresa Galicia DO</span>< /p></td></tr><tr><td style="vertical-align:middle; width:75pt"><p style="margin: 3.65pt 0pt 7.3pt"><span style="font-family:'[employer] J Carlos'; font-size:10pt"> 2:12 PM</span></p></td><td style="vertical-align:middle; width:75pt"><p style="margin:3.65pt 0pt 7.3pt"><span style="font-family:'[employer] J Carlos'; font -size:10pt">GI Consult -Request</span></p></td><td style="vertical-align:middle ; width:75pt"><p style="margin:3.65pt 0pt 7.3pt"><span style="font-family:' [employer] J Carlos'; font-size:10pt">Consults -Request</span></p></td><td style= "vertical-align:middle; width:60pt"><p style="margin:3.65pt 0pt 7.3pt"><span style="font-family:'Times [employer] J Carlos'; font-size:10pt">Ordered</span></p></td>< td style="vertical-align:middle; width:90pt"><p style="margin:3.65pt 0pt 7.3pt"> <span style="font-family:'Times [employer] J Carlos'; font-size:10pt">11/14/2010 2:12 PM</ span></p></td><td style="vertical-align:middle; width:90pt"><p style="margin: 3.65pt 0pt 7.3pt"><span style="font-family:'Times [employer] J Carlos'; font-size:10pt"> Maria Teresa Galicia DO</span></p></td></tr><tr><td style="vertical-align:middle; width:75pt"><p style="margin:3.65pt 0pt 7.3pt"><span style="font-family:'Times [employer] J Carlos'; font-size:10pt">11/14/2010 2:09 PM</span></p></td><td style="vertical -align:middle; width:75pt"><p style="margin:3.65pt 0pt 7.3pt"><span style="font- family:'Times [employer] J Carlos'; font-size:10pt">Office Visit Level 3 Est - [id number]</span ></p></td><td style="vertical-align:middle; width:75pt"><p style="margin:3.65pt 0pt 7.3pt"><span style="font-family:'Times [employer] J Carlos'; font-size:10pt"> Evaluation and Management</span></p></td><td style="vertical-align:middle; width :60pt"><p style="margin:3.65pt 0pt 7.3pt"><span style="font-family:'Times [employer] J Carlos'; font-size:10pt">Completed</span></p></td><td style="vertical-align: middle; width:90pt"><p style="margin:3.65pt 0pt 7.3pt"><span style="font-family: 'Times [employer] J Carlos'; font-size:10pt">11/14/2010 2:09 PM</span></p></td><td style= "vertical-align:middle; width:90pt"><p style="margin:3.65pt 0pt 7.3pt"><span style="font-family:'Times [employer] J Carlos'; font-size:10pt">Maria Teresa Galicia DO</span>< /p></td></tr></table><p style="margin:3.65pt 0pt 7.3pt"><span style="font- family:'Times [employer] J Carlos'; font-size:10pt"></span></p><p style="margin:3.65pt 0pt 7.3pt"><span style="display:none; font-family:'Times [employer] J Carlos'; font-size: 11pt"><%END%></span></p><p style="margin:0pt"><span style="font-family:'times new j carlos'; font-size:12pt"></span></p><p style="margin:0pt"><span style= "font-family:arial; font-size:12pt; font-weight:bold">MEDICAL INFORMATION</span> </p><p style="margin:0pt"><span style="font-family:arial; font-size:10pt"> Allergy Info: </span></p><p style="margin:0pt"><span style="font-family:arial; font-size:8pt"> </span><span style="display:none; font-family:arial; font-size: 10pt"><%ALLERGY%></span><span style="font-family:arial; font-size:10pt">NKA</ span><span style="display:none; font-family:arial; font-size:10pt"><%END%></span ></p><p style="margin:0pt"><span style="font-family:'times new j carlos'; font-size :12pt"></span></p><p style="margin:0pt"><span style="font-family:arial; font- size:12pt; font-weight:bold">HOME MEDICATIONS</span></p><p style="margin:0pt">< span style="display:none; font-family:arial; font-size:10pt"><%[facility]_ DEPART_HOME_MEDS%></span><span style="font-family:'Times [employer] J Carlos'; font-size: 11pt; font-weight:bold">doxycycline hyclate 100 mg oral capsule</span><span style="font-family:'Times [employer] J Carlos'; font-size:11pt"> 100 mg, 1 Cap, Every 24 hours</span> <span style="font-family:'Times [employer] J Carlos'; font-size:11pt; font-weight:bold"> omeprazole 20 mg oral enteric coated capsule</span><span style="font-family:' Times [employer] J Carlos'; font-size:11pt"> 20 mg, 1 Cap, 2 times a day</span></p>< p style="margin:0pt"><span style="font-family:'Times [employer] J Carlos'; font-size:11pt "></span></p><p style="margin:0pt"><span style="display:none; font-family:arial ; font-size:10pt"><%END%></span></p><p style="margin:0pt"><span style="font- family:'times new j carlos'; font-size:12pt"></span></p><p style="margin:0pt">< span style="font-family:arial; font-size:12pt; font-weight:bold">DISCHARGE INFORMATION</span></p><p style="margin:0pt"><span style="font-family:arial; font -size:10pt"> Discharge Disposition: </span><span style="display:none; font- family:arial; font-size:10pt"><%DISDISP%></span><span style="display:none; font- family:arial; font-size:10pt"><%END%></span></p><p style="margin:0pt"><span style="font-family:arial; font-size:10pt"> Discharge Location: </span><span style="display:none; font-family:arial; font-size:10pt"><%DISLOC%></span><span style="display:none; font-family:arial; font-size:10pt"><%END%></span></p><p style="margin:0pt"><span style="font-family:'times new j carlos'; font-size:12pt"> </span></p><p style="margin:0pt"><span style="font-family:arial; font-size:12pt ; font-weight:bold">PATIENT EDUCATION INFORMATION</span></p><p style="margin:0pt "><span style="font-family:arial; font-size:10pt"> Instructions:</span></p><p style="margin:0pt"><span style="font-family:arial; font-size:10pt"> </span>< span style="display:none; font-family:arial; font-size:10pt"><%DISINSTRUCT%></ span><span style="font-family:arial; font-size:10pt">Dysphagia: Exercises</span> <span style="display:none; font-family:arial; font-size:10pt"><%END%></span></p> <p style="margin:0pt"><span style="font-family:arial; font-size:10pt"> Follow up:</span></p><p style="margin:0pt"><span style="font-family:arial; font- size:10pt"></span></p><table cellspacing="0" cellpadding="0" style="border- collapse:collapse; margin-left:0pt"><tr><td style="vertical-align:top; width: 142.5pt"><p style="margin:3.65pt 0pt 7.3pt"><span style="display:none; font -family:'Times [employer] J Carlos'; font-size:11pt; font-weight:normal"><%FOLLOWUPTABLE%> </span><span style="font-family:'Times [employer] J Carlos'; font-size:10pt; font-weight: bold">With:</span></p></td><td style="vertical-align:top; width:172.5pt"><p style="margin:3.65pt 0pt 7.3pt"><span style="font-family:'Times [employer] J Carlos'; font -size:10pt; font-weight:bold">Address:</span></p></td><td style="vertical-align: top; width:90pt"><p style="margin:3.65pt 0pt 7.3pt"><span style="font-family:& apos;Times [employer] J Carlos'; font-size:10pt; font-weight:bold">When:</span></p></td></ tr><tr><td style="vertical-align:middle; width:142.5pt"><p style="margin:3.65pt 0pt 7.3pt"><span style="font-family:'Times New J Carlos'; font-size:10pt">Ty Julio</span></p></td><td style="vertical-align:middle; width:172.5pt"><p style ="margin:3.65pt 0pt 7.3pt"><span style="font-family:'Times New J Carlos'; font-size :10pt">[id number] [address]</span> <span style="font-family:'Times New J Carlos'; font-size:10pt"> phone , [employer] (1)</span></p></td><td style="vertical-align:middle; width: 90pt"><p style="margin:3.65pt 0pt 7.3pt"><span style="font-family:'Times [employer] J Carlos'; font-size:11pt"></span></p></td></tr><tr><td colspan="3" style= "vertical-align:top; width:405pt"><p style="margin:3.65pt 0pt 7.3pt"><span style ="font-family:'Times New J Carlos'; font-size:10pt; font-weight:bold">Comments:</ span></p></td></tr><tr><td colspan="3" style="vertical-align:middle; width:405pt "><p style="margin:3.65pt 0pt 7.3pt"><span style="font-family:'Times [employer] J Carlos' ; font-size:10pt">Go any Wednesday between 9 and noon to fill out papers to set up EGD</span></p></td></tr><tr style="height:0pt"><td style="width:142.5pt; border: none"></td><td style="width:172.5pt; border:none"></td><td style="width:90pt; border:none"></td></tr></table><p style="margin:3.65pt 0pt 7.3pt"> <span style="font-family:'Times New J Carlos'; font-size:11pt"></span></p><p style ="margin:3.65pt 0pt 7.3pt"><span style="display:none; font-family:'Times New J Carlos'; font-size:11pt"><%END%></span></p><p style="margin:0pt"><span style ="font-family:'times new j carlos'; font-size:12pt"></span></p><p style="margin: 0pt"><span style="font-family:arial; font-size:12pt; font-weight:bold">DIAGNOSIS </span></p><p style="margin:0pt"><span style="display:none; font-family:arial; font-size:8pt"><%DIAGNOSIS%></span><span style="font-family:arial; font-size:8pt ">Dysphagia</span><span style="display:none; font-family:arial; font-size:8pt">< %END%></span></p><p style="margin:0pt"><span style="font-family:'times new j carlos'; font-size:12pt"></span></p><p style="margin:0pt"><span style="font- family:'times new j carlos'; font-size:12pt"></span></p><p style="margin:0pt">< span style="font-family:'times new j carlos'; font-size:12pt"></span></p><p style= "margin:0pt"><span style="font-family:'times new j carlos'; font-size:12pt"></span ></p><p style="margin:0pt"><span style="font-family:'times new j carlos'; font-size :12pt"></span></p><p style="margin:0pt"><span style="font-family:'times new j carlos'; font-size:12pt"></span></p><p style="margin:3.65pt 0pt 7.3pt"><span style="font-family:'times new j carlos'; font-size:12pt"></span></p></div> 11/14/2010 [facility] Office/Clinic Notes Office/Clinic Notes <div><p style="margin:0pt; text-align:center"><span style= "background-color:#ffffff; font-family:[place]; font-size:10pt; font-weight:bold"> [facility]</span></p><p style="margin:0pt; text-align: center"><span style="background-color:#ffffff; font-family:[place]; font-size:10pt ; font-weight:bold">[address] [facility]</span></p><p style="margin:0pt; text -align:center"><span style="background-color:#ffffff; font-family:[place]; font- size:10pt; font-weight:bold">GENE Melendez [id number]</span></p><p style="margin: 0pt; text-align:center"><span style="background-color:#ffffff; font-family:[place] ; font-size:10pt; font-weight:bold">[phone] </span></p><p style="margin:0pt; text-align:center"><span style="font-family:[place]; font-size: 10pt; font-weight:bold"></span></p><p style="margin:0pt"><span style= "background-color:#ffffff; font-family:[place]; font-size:10pt">PATIENT: SANIA CARBONE LESLIE</span></p><p style="margin:0pt"><span style="background-color:# ffffff; font-family:[place]; font-size:10pt">MR #: [id number]</span></p><p style= "margin:0pt"><span style="background-color:#ffffff; font-family:[place]; font -size:10pt"> </span></p><p style="margin:0pt"><span style= "background-color:#ffffff; font-family:[place]; font-size:10pt">: 1989</span></p><p style="margin:0pt"><span style="background-color:#ffffff; font -family:[place]; font-size:10pt">DATE SEEN: 11/14/2010</span></p><p style="margin: 0pt"><span style="font-family:[place]; font-size:10pt"></span></p><p style= "margin:0pt"><span style="background-color:#ffffff; font-family:[place]; font-size :10pt; font-weight:bold">Chief Complaint</span></p><p style="margin:0pt"><span style="background-color:#ffffff; font-family:[place]; font-size:10pt">Pt is here today for center chest pain after eating for the last 4-5 days.</span></p><p style="margin:0pt"><span style="font-family:[place]; font-size:10pt"></span></p>< p style="margin:0pt"><span style="font-family:[place]; font-size:10pt"></span></p ><p style="margin:0pt"><span style="background-color:#ffffff; font-family:[place] ; font-size:10pt; font-weight:bold">History of Present Illness</span></p><p style="margin:0pt"><span style="background-color:#ffffff; font-family:[place]; font-size:10pt">Having trou</span><span style="background-color:#ffffff; font- family:[place]; font-size:10pt">ble swallowing, having lot of pain, hurts all the time, does not matter what it is, does not drink, smoke, never had an ulcer, came on suddenly, has not swallowed any bones. Just not doing well. No hematochezia, hematemesis, melena, not nauseated, no shortness of breath. </span ></p><p style="margin:0pt"><span style="font-family:[place]; font-size:10pt"></ span></p><p style="margin:0pt"><span style="background-color:#ffffff; font- family:[place]; font-size:10pt; font-weight:bold">Review of Systems </span></p><p style="margin:0pt"><span style="font-family:[place]; font-size:10pt"></span></p>< p style="margin:0pt"><span style="font-family:[place]; font-size:10pt"></span></p ><p style="margin:0pt"><span style="background-color:#ffffff; font-family:[place] ; font-size:10pt; font-weight:bold">Allergies</span></p><p style="margin:0pt">< span style="background-color:#ffffff; font-family:[place]; font-size:10pt">NKA</ span></p><p style="margin:0pt"><span style="font-family:[place]; font-size:10pt"> </span></p><p style="margin:0pt"><span style="background-color:#ffffff; font- family:[place]; font-size:10pt; font-weight:bold">Current Medications</span></p>< p style="margin:0pt"><span style="background-color:#ffffff; font-family:[place]; font-size:10pt">doxycycline hyclate 100 mg oral capsule (doxycycline), 100 mg 1 Cap, Every 24 hours</span></p><p style="margin:0pt"><span style="font-family: [place]; font-size:10pt"></span></p><p style="margin:0pt"><span style="background -color:#ffffff; font-family:[place]; font-size:10pt; font-weight:bold">Problems and Past Medical History</span></p><p style="margin:0pt"><span style="background -color:#ffffff; font-family:[place]; font-size:10pt; text-decoration:underline"> Active</span></p><p style="margin:0pt"><span style="background-color:#ffffff; font-family:[place]; font-size:10pt">Allergic Rhinits, Seasonal or NOS</span></p>< p style="margin:0pt"><span style="background-color:#ffffff; font-family:[place]; font-size:10pt">Asthma, unspecified</span></p><p style="margin:0pt"><span style= "background-color:#ffffff; font-family:[place]; font-size:10pt">Nasal Fracture</ span></p><p style="margin:0pt"><span style="font-family:[place]; font-size:10pt"> </span></p><p style="margin:0pt"><span style="background-color:#ffffff; font- family:[place]; font-size:10pt; font-weight:bold">Family History</span></p><p style="margin:0pt"><span style="background-color:#ffffff; font-family:[place]; font-size:10pt; text-decoration:underline">Oncologic Past Medical History</span> </p><p style="margin:0pt"><span style="background-color:#ffffff; font-family: [place]; font-size:10pt">Lymphoma Medical History: Grandparents, CERVICAL CA.</ span></p><p style="margin:0pt"><span style="background-color:#ffffff; font- family:[place]; font-size:10pt">Oncologic, Other Medical History: Grandparents, bladder</span></p><p style="margin:0pt"><span style="background-color:#ffffff; font-family:[place]; font-size:10pt; text-decoration:underline">Immunologic Past Medical History</span></p><p style="margin:0pt"><span style="background-color:# ffffff; font-family:[place]; font-size:10pt">Immunologic, Other Medical History: SCLERODERMA</span></p><p style="margin:0pt"><span style="background-color:# ffffff; font-family:[place]; font-size:10pt; text-decoration:underline"> Neurological Past Medical History</span></p><p style="margin:0pt"><span style= "background-color:#ffffff; font-family:[place]; font-size:10pt">Frequent Headaches Medical History: Mother, Sibling, MIGRAINES</span></p><p style="margin :0pt"><span style="background-color:#ffffff; font-family:[place]; font-size:10pt; text-decoration:underline">Endocrine/Metabolic Past Med Hx</span></p><p style= "margin:0pt"><span style="background-color:#ffffff; font-family:[place]; font-size :10pt">Diabetes Medical History: Grandparents</span></p><p style="margin:0pt& quot;><span style="background-color:#ffffff; font-family:[place]; font-size:10pt; text-decoration:underline">Musculoskeletal Past Medical Hx</span></p><p style= "margin:0pt"><span style="background-color:#ffffff; font-family:[place]; font-size :10pt">Arthritis Medical History: Grandparents, Sibling</span></p><p style= "margin:0pt"><span style="background-color:#ffffff; font-family:[place]; font-size :10pt">Musculoskeletal, Other Medical History: Sibling, JRA</span></p><p style= "margin:0pt"><span style="background-color:#ffffff; font-family:[place]; font-size :10pt; text-decoration:underline">Genitourinary Past Medical Hx</span></p><p style="margin:0pt"><span style="background-color:#ffffff; font-family:[place]; font-size:10pt">Genitourinary, Other Medical History: Sibling, VURD</span></p>< p style="margin:0pt"><span style="background-color:#ffffff; font-family:[place]; font-size:10pt; text-decoration:underline">Gastrointestinal Past Medical Hx</ span></p><p style="margin:0pt"><span style="background-color:#ffffff; font- family:[place]; font-size:10pt">Gastrointestinal, Other Medical History: Mother, IBS</span></p><p style="margin:0pt"><span style="background-color:#ffffff; font-family:[place]; font-size:10pt; text-decoration:underline">Respiratory Past Medical History</span></p><p style="margin:0pt"><span style="background-color:# ffffff; font-family:[place]; font-size:10pt">Asthma Medical History: Sibling</span ></p><p style="margin:0pt"><span style="background-color:#ffffff; font-family: [place]; font-size:10pt">Respiratory, Other Medical History: Mother, SLEEP APNEA</ span></p><p style="margin:0pt"><span style="background-color:#ffffff; font- family:[place]; font-size:10pt; text-decoration:underline">Cardiovascular Past Medical History</span></p><p style="margin:0pt"><span style="background-color:# ffffff; font-family:[place]; font-size:10pt">Heart Disease Medical History: Grandparents</span></p><p style="margin:0pt"><span style="background-color:# ffffff; font-family:[place]; font-size:10pt">High Blood Pressure Medical History: Grandparents</span></p><p style="margin:0pt"><span style="background-color:# ffffff; font-family:[place]; font-size:10pt; text-decoration:underline">Ocular Past Medical History</span></p><p style="margin:0pt"><span style="background- color:#ffffff; font-family:[place]; font-size:10pt">Cataract Medical History: Grandparents</span></p><p style="margin:0pt"><span style="font-family:[place]; font-size:10pt"></span></p><p style="margin:0pt"><span style="background-color: #ffffff; font-family:[place]; font-size:10pt; font-weight:bold">Procedure History< /span></p><p style="margin:0pt"><span style="background-color:#ffffff; font- family:[place]; font-size:10pt">X 2 SURGERIES LT ANKLE</span></p><p style="margin: 0pt"><span style="font-family:[place]; font-size:10pt"> </span></p><p style= "margin:0pt"><span style="background-color:#ffffff; font-family:[place]; font-size :10pt; font-weight:bold">Social History</span></p><p style="margin:0pt">< span style="background-color:#ffffff; font-family:[place]; font-size:10pt"> Current Tobacco Usage: Denies</span></p><p style="margin:0pt"><span style= "background-color:#ffffff; font-family:[place]; font-size:10pt">Caffeine Use: Current</span></p><p style="margin:0pt"><span style="background-color:#ffffff; font-family:[place]; font-size:10pt">Caffeine Type: Soda</span></p><p style= "margin:0pt"><span style="background-color:#ffffff; font-family:[place]; font-size :10pt">Caffeine Frequency: Weekly</span></p><p style="margin:0pt"><span style= "background-color:#ffffff; font-family:[place]; font-size:10pt">Occupation: [employer]</span></p><p style="margin:0pt"><span style="background-color:#ffffff; font-family:[place]; font-size:10pt">Education: High school</span></p><p style="margin:0pt"><span style="background-color:#ffffff; font-family:[place]; font-size:10pt">Recreational Drug Use: Denies</span></p><p style="margin:0pt">< span style="background-color:#ffffff; font-family:[place]; font-size:10pt"> Alcohol Use: Not applicable due to age</span></p><p style="margin:0pt"><span style="font-family:[place]; font-size:10pt"></span></p><p style="margin:0pt "><span style="background-color:#ffffff; font-family:[place]; font-size:10pt; font -weight:bold">Physical Examination</span></p><p style="margin:0pt"><span style= "background-color:#ffffff; font-family:[place]; font-size:10pt; text-decoration: underline">TEMP </span><span style="width:25.46pt; text-indent:0pt; display: inline-block; -um-qzojelf-nvjmh:left; -ch-axmpjfo-deq:55pt"></span><span style= "background-color:#ffffff; font-family:[place]; font-size:10pt; text-decoration: underline">BP </span><span style="width:36.44pt; text-indent:0pt; display:inline -block; -ok-saugdyt-wcqpu:left; -ld-hixjdzq-xxq:105pt"></span><span style= "background-color:#ffffff; font-family:[place]; font-size:10pt; text-decoration: underline">Pulse </span><span style="width:27.08pt; text-indent:0pt; display: inline-block; -qj-qgjjesz-xrskv:left; -ko-ukvmpoh-cyr:155pt"></span><span style= "background-color:#ffffff; font-family:[place]; font-size:10pt; text-decoration: underline">RR </span><span style="width:35.18pt; text-indent:0pt; display:inline -block; -pg-gpuofzj-diuxe:left; -po-sukfvtw-xql:205pt"></span><span style= "background-color:#ffffff; font-family:[place]; font-size:10pt; text-decoration: underline">MAP </span><span style="width:26.43pt; text-indent:0pt; display: inline-block; -pf-phqacls-hszgw:left; -rq-xerkkoi-luo:255pt"></span><span style="background-color:#ffffff; font-family:[place]; font-size:10pt; text- decoration:underline">O2 Sat </span></p><p style="margin:0pt"><span style= "background-color:#ffffff; font-family:[place]; font-size:10pt">36.8</span><span style="width:37.79pt; text-indent:0pt; display:inline-block; -bh-mdjdgqd-vufpl: left; -rp-aieheyf-fma:55pt"></span><span style="background-color:#ffffff; font- family:[place]; font-size:10pt">100/64</span><span style="width:20.94pt; text- indent:0pt; display:inline-block; -dx-kxdkzpd-soeje:left; -zl-qvbkqkq-ygv:105pt "></span><span style="background-color:#ffffff; font-family:[place]; font-size: 10pt">95</span><span style="width:40pt; text-indent:0pt; display:inline-block; - ct-wfuwkll-uabox:left; -lq-uunqgri-idv:155pt"></span><span style=" background-color:#ffffff; font-family:[place]; font-size:10pt">18</span><span style="width:40pt; text-indent:0pt; display:inline-block; -mm-qegbieu-ptgjc:left ; -ao-mqufbau-uaw:205pt"></span><span style="background-color:#ffffff; font- family:[place]; font-size:10pt">76.00</span><span style="width:27.79pt; text- indent:0pt; display:inline-block; -qk-nowhjss-fbync:left; -dj-soamcxu-cod:255pt "></span><span style="background-color:#ffffff; font-family:[place]; font-size: 10pt">99</span></p><p style="margin:0pt"><span style="font-family:[place]; font- size:10pt"></span></p><p style="margin:0pt"><span style="background-color:# ffffff; font-family:[place]; font-size:10pt">Blood Pressure Location: Right arm </ span></p><p style="margin:0pt"><span style="background-color:#ffffff; font- family:[place]; font-size:10pt">Oxygen Therapy: Room air </span></p><p style= "margin:0pt"><span style="font-family:[place]; font-size:10pt"> </span></p>< p style="margin:0pt"><span style="background-color:#ffffff; font-family:[place]; font-size:10pt; text-decoration:underline">Weight </span><span style="width: 94.02pt; text-indent:0pt; display:inline-block; -sc-lfookrl-ezomw:left; -aw- tabstop-pos:125pt"></span><span style="background-color:#ffffff; font-family: [place]; font-size:10pt; text-decoration:underline">Height </span><span style= "width:36.19pt; text-indent:0pt; display:inline-block; -uo-jdqqtbj-jdbbq:left; - zm-oexangv-puk:190pt"></span><span style="background-color:#ffffff; font-family: [place]; font-size:10pt; text-decoration:underline">BMI </span><span style="width: 29.8pt; text-indent:0pt; display:inline-block; -lq-vetdnrj-rcfrp:left; -aw- tabstop-pos:240pt"></span><span style="background-color:#ffffff; font-family: [place]; font-size:10pt; text-decoration:underline">BSA </span></p><p style= "margin:0pt"><span style="background-color:#ffffff; font-family:[place]; font-size :10pt">67.200 kg (148.15 lbs)</span><span style="width:39.47pt; text-indent:0pt ; display:inline-block; -lk-extrgvs-xioiu:left; -kh-izejnvs-hng:125pt"></span>< span style="background-color:#ffffff; font-family:[place]; font-size:10pt">168.0 cm</span><span style="width:29.28pt; text-indent:0pt; display:inline-block; -aw- tabstop-align:left; -hg-njexddm-alb:190pt"></span><span style="background-color: #ffffff; font-family:[place]; font-size:10pt">23.8</span><span style="width: 32.79pt; text-indent:0pt; display:inline-block; -rc-vjndhqr-bpboq:left; -aw- tabstop-pos:240pt"></span><span style="background-color:#ffffff; font-family: [place]; font-size:10pt">1.7709 m2</span></p><p style="margin:0pt"><span style= "font-family:[place]; font-size:10pt"></span></p><p style="margin:0pt"><span style="background-color:#ffffff; font-family:[place]; font-size:10pt">Vital signs : Per chart. General: Well-hydrated, well-developed, well-nourished and in no acute distress. HEENT: Neck supple, no nodes; ears clear; TMs normal; eyes - conjunctivae clear, EOMI, PERRLA, fundi benign. Pharynx: Tongue and uvula midline, no exudate or injection. Chest: </span><span style="background-color:# ffffff; font-family:[place]; font-size:10pt">chest wall tenderness. </span><span style="background-color:#ffffff; font-family:[place]; font-size:10pt"> Respirations unlabored, lungs are clear. Heart: Regular rate and rhythm without murmur. Abdomen: Soft, nontender, no masses, organomegaly, guarding or rebound. Bowel sounds positive. Extremities: Nontender without edema. Pulses are 2+ and equal. Neurologic: Cranial nerves are intact, no motor or sensory deficits. Cerebellar function is normal. Mental status: Alert, oriented x3, cooperative. Skin: Without rash.</span></p><p style="margin:0pt"><span style="font-family: [place]; font-size:10pt"></span></p><p style="margin:0pt"><span style="background -color:#ffffff; font-family:[place]; font-size:10pt; font-weight:bold">Impression< /span></p><p style="margin:0pt"><span style="background-color:#ffffff; font- family:[place]; font-size:10pt">Dysphagia (787.20)</span></p><p style="margin:0pt "><span style="background-color:#ffffff; font-family:[place]; font-size:10pt"> Odyno</span><span style="background-color:#ffffff; font-family:[place]; font-size: 10pt">phagia</span></p><p style="margin:0pt"><span style="font-family:[place]; font-size:10pt"></span></p><p style="margin:0pt"><span style="font-family: [place]; font-size:10pt"></span></p><p style="margin:0pt"><span style="background -color:#ffffff; font-family:[place]; font-size:10pt; font-weight:bold">Plan</span> </p><p style="margin:0pt"><span style="background-color:#ffffff; font-family: [place]; font-size:10pt; font-weight:bold">Medication changes this visit:</span&gt ;</p><p style="margin:0pt"><span style="background-color:#ffffff; font-family: [place]; font-size:10pt; text-decoration:underline">New</span></p><p style="margin :0pt"><span style="background-color:#ffffff; font-family:[place]; font-size:10pt"> omeprazole 20 mg oral enteric coated capsule, 20 mg=1 Cap, BID, Quantity: 60, Refills: 3</span></p><p style="margin:0pt"><span style="font-family:[place]; font- size:10pt"></span></p><p style="margin:0pt"><span style="background-color:# ffffff; font-family:[place]; font-size:10pt; font-weight:bold">Orders this visit:< /span></p><p style="margin:0pt"><span style="background-color:#ffffff; font- family:[place]; font-size:10pt">GI Consult -Request</span></p><p style="margin:0pt "><span style="background-color:#ffffff; font-family:[place]; font-size:10pt"> DX Chest 2 View</span></p><p style="margin:0pt"><span style="font-family:[place]; font-size:10pt"> </span></p><p style="margin:0pt"><span style="background- color:#ffffff; font-family:[place]; font-size:10pt">Get </span><span style= "background-color:#ffffff; font-family:[place]; font-size:10pt">chest x-ray, PA & latera, get GI consult scheduled, need to look down and find out why she had this pain only with swallowing, not a complaining girl whatsoever, very reasonable. </span></p><p style="margin:0pt"><span style="font-family:[place]; font-size:12pt"></span></p><p style="margin:0pt"><span style="font-family:[place] ; font-size:12pt"></span></p><p style="margin:0pt"><span style="background- color:#ffffff; font-family:[place]; font-size:10pt">Risks, benefits of medications and/or treatment options explained. Alternatives and expected outcome discussed. Patient and/or family verbalized understanding. Patient instructed to follow up sooner than directed if new symptoms develop or current symptoms worsen. Otherwise follow up prn.</span></p><p style="margin:0pt"><span style="font-family:[place]; font-size:10pt"></span></p><p style="margin:0pt">< span style="font-family:[place]; font-size:10pt"></span></p><p style="margin: 0pt"><span style="background-color:#ffffff; font-family:[place]; font-size:10pt"> TR:</span><span style="width:14.48pt; text-indent:0pt; display:inline-block; -aw -tabstop-align:left; -pw-upcpsxz-old:30pt"></span><span style="background-color: #ffffff; font-family:[place]; font-size:10pt">WILSONB</span></p><p style="margin: 0pt"><span style="background-color:#ffffff; font-family:[place]; font-size:10pt"> DD:</span><span style="width:12.63pt; text-indent:0pt; display:inline-block; -aw -tabstop-align:left; -go-ogoraxh-gqg:30pt"></span><span style="background- color:#ffffff; font-family:[place]; font-size:10pt">6</span><span style= "background-color:#ffffff; font-family:[place]; font-size:10pt"> 1412</ span></p><p style="margin:0pt"><span style="background-color:#ffffff; font- family:[place]; font-size:10pt">DT:</span><span style="width:13.31pt; text-indent: 0pt; display:inline-block; -ly-yvkfidl-evoiz:left; -zt-cfxuawm-vhp:30pt"></ span><span style="background-color:#ffffff; font-family:[place]; font-size:10pt"> 11/17/2010 15:18</span></p><p style="margin:0pt"><span style="font-family:[place] ; font-size:10pt"></span></p><p style="margin:0pt"><span style="background- color:#ffffff; font-family:[place]; font-size:10pt">JJ#:</span><span style="width :2.84pt; text-indent:0pt; display:inline-block; -xv-ejwapmm-ycndb:left; -[employer]stop-pos:30pt"></span><span style="background-color:#ffffff; font-family: [place]; font-size:10pt">1</span><span style="background-color:#ffffff; font- family:[place]; font-size:10pt">[id number]</span></p><p style="margin:0pt"><span style ="font-family:[place]; font-size:10pt"></span></p></div> [Electronically Signed on 11.17.2010 03:41 pm]
Maria Teresa Galicia DO
</br> 11/14/2010 [Electronically Signed on 11.17.2010 03:41 pm] Maria Teresa Galicia, DO [facility] Ambulatory Depart Summary Ambulatory Depart Summary <div><p style="margin:0pt; text-align:center"><span style="display:none; font-family:'[employer] [place]'; font-size:11pt"><%[facility]_ [facility]INIC_HEADER_UDT%></span><span style="font-family:'times [place] j carlos'; font- size:12pt; font-weight:bold">[facility]</span> <span style="font-family:'times [place] j carlos'; font-size:12pt; font-weight:bold"> [address] [facility]</span> <span style="font-family:'times new j carlos'; font-size:12pt; font-weight:bold"> [place] [address]</span> <span style="font-family:'times new j carlos'; font-size:12pt; font-weight:bold"> [phone] </span> <span style="font-family:'times new j carlos'; font-size:12pt"></span></p><p style ="margin:0pt; text-align:center"><span style="font-family:'times [place] j carlos'; font-size:12pt"></span></p><p style="margin:3.65pt 0pt 7.3pt"><span style= "display:none; font-family:'[employer] [place]'; font-size:11pt"><%END%></span>< span style="font-family:'[employer] [place] [employer] [place]'; font-size:11pt"> </span></p><p style= "margin:0pt"><span style="font-family:'times [place] j carlos'; font-size:12pt"> < /span></p><p style="margin:0pt"><span style="font-family:arial; font-size:12pt; font-weight:bold">PERSON INFORMATION</span><span style="font-family:'times [place] j carlos'; font-size:12pt"> </span></p><table cellspacing="0" cellpadding="0" style ="border-collapse:collapse; margin-left:0pt"><tr><td style="vertical-align:top; width:174.25pt"><p style="margin:0pt"><span style="font-family:arial; font- size:8pt; font-weight:bold">Name </span><span style="display:none; font-family: arial; font-size:8pt"><%NAME%></span><span style="font-family:arial; font- size:8pt">SANIA CARBONE</span><span style="display:none; font-family: arial; font-size:8pt"><%END%></span></p></td><td style="vertical-align:top; width:174.25pt"><p style="margin:0pt"><span style="font-family:arial; font-size: 8pt; font-weight:bold">Age </span><span style="display:none; font-family:arial; font-size:8pt"><%AGE%></span><span style="font-family:arial; font-size:8pt"> 21 Years</span><span style="display:none; font-family:arial; font-size:8pt"><% END%></span></p></td><td style="vertical-align:top; width:174.25pt"><p style= "margin:0pt"><span style="font-family:arial; font-size:8pt; font-weight:bold"> </span><span style="display:none; font-family:arial; font-size:8pt"><%%>< /span><span style="font-family:arial; font-size:8pt">1990</span><span style="display:none; font-family:arial; font-size:8pt"><%END%></span></p></td></ tr><tr><td style="vertical-align:top; width:174.25pt"><p style="margin:0pt">< span style="font-family:arial; font-size:8pt; font-weight:bold">Sex </span> <span style="display:none; font-family:arial; font-size:8pt"><%GENDER%></span>< span style="font-family:arial; font-size:8pt">Female</span><span style="display: none; font-family:arial; font-size:8pt"><%END%></span></p></td><td style= "vertical-align:top; width:174.25pt"><p style="margin:0pt"><span style="font- family:arial; font-size:8pt; font-weight:bold">Language </span><span style= "display:none; font-family:arial; font-size:8pt"><%LANGUAGE%></span><span style= "font-family:arial; font-size:8pt">Swedish</span><span style="display:none; font -family:arial; font-size:8pt"><%END%></span></p></td><td style="vertical-align: top; width:174.25pt"><p style="margin:0pt"><span style="font-family:arial; font- size:8pt; font-weight:bold">PCP </span><span style="display:none; font-family: arial; font-size:8pt"><%PCP%></span><span style="font-family:arial; font-size: 8pt">Maria Teresa Galicia, </span><span style="display:none; font-family:arial; font -size:8pt"><%END%></span></p></td></tr><tr><td style="vertical-align:top; width:174.25pt"><p style="margin:0pt"><span style="font-family:arial; font-size: 8pt; font-weight:bold">Marital Status </span><span style="display:none; font- family:arial; font-size:8pt"><%MARITALSTAT%></span><span style="font-family: arial; font-size:8pt">Single</span><span style="display:none; font-family:arial ; font-size:8pt"><%END%></span></p></td><td style="vertical-align:top; width: 174.25pt"><p style="margin:0pt"><span style="font-family:arial; font-size: 8pt; font-weight:bold">Phone </span><span style="display:none; font-family:arial ; font-size:8pt"><%PHONE%></span><span style="font-family:arial; font-size:8pt"> </span><span style="display:none; font-family:arial; font-size:8pt "><%END%></span></p></td><td style="vertical-align:top; width:174.25pt"><p style ="margin:0pt"><span style="font-family:arial; font-size:8pt; font-weight:bold"> Time Zone </span><span style="display:none; font-family:arial; font-size:8pt"><% TIMEZONE%></span><span style="display:none; font-family:arial; font-size: 8pt"><%END%></span></p></td></tr><tr><td style="vertical-align:top; width: 174.25pt"><p style="margin:0pt"><span style="font-family:arial; font-size:8pt; font-weight:bold">MRN </span><span style="display:none; font-family:arial; font- size:8pt"><%ALIASPMRN%></span><span style="font-family:arial; font-size:8pt"> [id number]</span><span style="display:none; font-family:arial; font-size:8pt"><%END% ></span></p></td><td style="vertical-align:top; width:174.25pt"><p style="margin :0pt"><span style="font-family:arial; font-size:8pt; font-weight:bold">Visit Id </span><span style="display:none; font-family:arial; font-size:8pt"><% ALIASEVISITID%></span><span style="display:none; font-family:arial; font-size: 8pt"><%END%></span></p></td><td style="vertical-align:top; width:174.25pt"><p style="margin:0pt"><span style="font-family:arial; font-size:8pt; font-weight: bold">Acct# </span><span style="display:none; font-family:arial; font-size:8pt"> <%ALIASEFIN NBR%></span><span style="font-family:arial; font-size:8pt"> [id number]</span><span style="display:none; font-family:arial; font-size:8pt"><% END%></span></p></td></tr><tr><td style="vertical-align:top; width:174.25pt"><p style="margin:0pt"><span style="font-family:arial; font-size:8pt; font-weight: bold">Visit Reason </span><span style="display:none; font-family:arial; font- size:8pt"><%RFV%></span><span style="font-family:arial; font-size:8pt">REMOVAL OF MOLE-BACK AND CHIN</span><span style="display:none; font-family:arial; font-size:8pt"><%END%></span></p></td><td style="vertical-align:top; width: 174.25pt"><p style="margin:0pt"><span style="font-family:arial; font-size:8pt; font-weight:bold">Specialty </span><span style="display:none; font-family:arial ; font-size:8pt"><%SPECIALTY%></span><span style="display:none; font-family: arial; font-size:8pt"><%END%></span></p></td><td style="vertical-align:top; width:174.25pt"><p style="margin:0pt"><span style="font-family:'times new j carlos' ; font-size:12pt"></span></p></td></tr><tr><td style="vertical-align:top; width :174.25pt"><p style="margin:0pt"><span style="font-family:arial; font-size:8pt; font-weight:bold">Enc Type </span><span style="display:none; font-family:arial; font-size:8pt"><%ENCNTRTYPE%></span><span style="font-family:arial; font-size: 8pt">[facility]</span><span style="display:none; font-family:arial; font-size:8pt"><%END%></span></p></td><td style="vertical-align:top; width: 174.25pt"><p style="margin:0pt"><span style="font-family:arial; font-size:8pt; font-weight:bold">Med Service </span><span style="display:none; font-family: arial; font-size:8pt"><%MEDSERVICE%></span><span style="font-family:arial; font-size:8pt">PHYSOFF-Physician Office</span><span style="display:none; font- family:arial; font-size:8pt"><%END%></span></p></td><td style="vertical-align :top; width:174.25pt"><p style="margin:0pt"><span style="font-family:arial; font -size:8pt; font-weight:bold">Referred by </span><span style="display:none; font- family:arial; font-size:8pt"><%REFERREDBY%></span><span style="display:none; font-family:arial; font-size:8pt"><%END%></span></p></td></tr><tr><td style= "vertical-align:top; width:174.25pt"><p style="margin:0pt"><span style="font- family:arial; font-size:8pt; font-weight:bold">[facility]</span><span style= "font-family:arial; font-size:8pt"> </span><span style="display:none; font- family:arial; font-size:8pt"><%TRACKGROUP%></span><span style="font-family:arial ; font-size:8pt">Clinic Discharge Process</span><span style="display:none; font- family:arial; font-size:8pt"><%END%></span></p></td><td style="vertical-align: top; width:174.25pt"><p style="margin:0pt"><span style="font-family:arial; font- size:8pt; font-weight:bold">Discharge </span><span style="display:none; font- family:arial; font-size:8pt"><%DISCHDTTM%></span><span style="display:none; font -family:arial; font-size:8pt"><%END%></span></p></td><td style="vertical-align: top; width:174.25pt"><p style="margin:0pt"><span style="font-family:'times new j carlos'; font-size:12pt"></span></p></td></tr><tr><td style="vertical-align:top ; width:174.25pt"><p style="margin:0pt"><span style="font-family:arial; font- size:8pt; font-weight:bold">Tracking Id </span><span style="display:none; font- family:arial; font-size:8pt"><%TRACKINGID%></span><span style="display:none; font-family:arial; font-size:8pt"><%END%></span></p></td><td style="vertical- align:top; width:174.25pt"><p style="margin:0pt"><span style="font-family:arial ; font-size:8pt; font-weight:bold">Checkout </span><span style="display:none; font-family:arial; font-size:8pt"><%CHECKOUTDTTM%></span><span style="display: none; font-family:arial; font-size:8pt"><%END%></span></p></td><td style= "vertical-align:top; width:174.25pt"><p style="margin:0pt"><span style="font- family:'times new j carlos'; font-size:12pt"></span></p></td></tr><tr><td style= "vertical-align:top; width:174.25pt"><p style="margin:0pt"><span style="font- family:arial; font-size:8pt; font-weight:bold">Checkin </span><span style= "display:none; font-family:arial; font-size:8pt"><%CHECKINDTTM%></span><span style="display:none; font-family:arial; font-size:8pt"><%END%></span></p></td>< td style="vertical-align:top; width:174.25pt"><p style="margin:0pt"><span style= "font-family:arial; font-size:8pt; font-weight:bold">Acuity </span><span style= "display:none; font-family:arial; font-size:8pt"><%ACUITY%></span><span style= "display:none; font-family:arial; font-size:8pt"><%END%></span></p></td><td style="vertical-align:top; width:174.25pt"><p style="margin:0pt"><span style= "font-family:arial; font-size:8pt; font-weight:bold">Dispo Type </span><span style="display:none; font-family:arial; font-size:8pt"><%DISDISP%></span><span style="display:none; font-family:arial; font-size:8pt"><%END%></span></p></td ></tr><tr><td style="vertical-align:top; width:174.25pt"><p style="margin:0pt">< span style="font-family:arial; font-size:8pt; font-weight:bold">Arrival </span>< span style="display:none; font-family:arial; font-size:8pt"><%ARRIVALDTTM%></ span><span style="font-family:arial; font-size:8pt">12/18/2011 9:35 AM</span>< span style="display:none; font-family:arial; font-size:8pt"><%END%></span></p></ td><td style="vertical-align:top; width:174.25pt"><p style="margin:0pt"><span style="font-family:arial; font-size:8pt; font-weight:bold">Reg Status </span>< span style="display:none; font-family:arial; font-size:8pt"><%REGSTATUS%></span> <span style="display:none; font-family:arial; font-size:8pt"><%END%></span></p>< /td><td style="vertical-align:top; width:174.25pt"><p style="margin:0pt"><span style="font-family:arial; font-size:8pt; font-weight:bold">LOS </span><span style="display:none; font-family:arial; font-size:8pt"><%LOSTRACK%></span><span style="display:none; font-family:arial; font-size:8pt"><%END%></span></p></td ></tr></table><p style="margin:0pt"><span style="font-family:arial; font-size: 8pt; font-weight:bold">Address:</span></p><p style="margin:0pt"><span style ="font-family:arial; font-size:8pt"> </span><span style="display:none; font- family:arial; font-size:8pt"><%ADDRESS%></span><span style="font-family:arial; font-size:8pt">[address] [facility] [address]</span><span style="display:none ; font-family:arial; font-size:8pt"><%END%></span><span style="font-family:arial ; font-size:8pt"> </span></p><p style="margin:0pt"><span style="font-family:' times new j carlos'; font-size:12pt; font-weight:bold"></span></p><p style="margin :0pt"><span style="font-family:arial; font-size:12pt; font-weight:bold">PHYS DOC NOTES</span></p><p style="margin:0pt"><span style="display:none; font-family :arial; font-size:8pt"><%PHYDOC%></span><span style="display:none; font- family:arial; font-size:8pt"><%END%></span><span style="font-family:arial; font- size:8pt"> </span></p><p style="margin:0pt"><span style="font-family:'times new j carlos'; font-size:12pt"></span></p><p style="margin:0pt"><span style="font- family:arial; font-size:12pt; font-weight:bold">PROVIDER INFORMATION</span>< span style="font-family:'times new j carlos'; font-size:12pt"> </span></p><p style= "margin:0pt"><span style="font-family:arial; font-size:8pt"></span></p><p style="margin:3.65pt 0pt 7.3pt"><span style="display:none; font-family:'[employer]'; font-size:11pt"><%PROVROLETBL%></span><span style="display:none; font-family:'[employer]'; font-size:11pt"><%END%></span></p><p style= "margin:0pt"><span style="font-family:'times new j carlos'; font-size:12pt"></span ></p><p style="margin:0pt"><span style="font-family:arial; font-size:12pt; font- weight:bold">VITALS INFORMATION</span></p><table cellspacing="0" cellpadding= "0" style="border-collapse:collapse; margin-left:0pt"><tr><td style="vertical- align:middle; width:264pt"><p style="margin:0pt"><span style="display:none ; font-family:'[employer]'; font-size:11pt"><%[facility]_DEPART_CLIN_VITALS%>< /span><span style="font-family:'[employer]'; font-size:11pt; font-weight: bold">Height:</span><span style="font-family:'[employer]'; font-size:11pt" > 5ft 5.7in</span></p></td><td style="vertical-align:middle; width:264pt"><p style="margin:0pt"><span style="font-family:'[employer]'; font-size:11pt; font-weight:bold">Weight:</span><span style="font-family:'[employer]'; font -size:11pt"> 155.87 lbs (BMI: 25.4)</span></p></td></tr><tr><td style="vertical- align:middle; width:264pt"><p style="margin:0pt"><span style="font-family:' [employer] [place] [employer] [place]'; font-size:11pt; font-weight:bold">Temp:</span><span style= "font-family:'[employer] [place]'; font-size:11pt"> 98.6 F</span></p></td><td style ="vertical-align:middle; width:264pt"><p style="margin:0pt"><span style="font- family:'[employer] [place]'; font-size:11pt; font-weight:bold">Heart Rate:</span>< span style="font-family:'[employer] [place]'; font-size:11pt"> 74</span></p></td></ tr><tr><td style="vertical-align:middle; width:264pt"><p style="margin:0pt">< span style="font-family:'[employer] [place]'; font-size:11pt; font-weight:bold"> Respiratory:</span><span style="font-family:'[employer] [place]'; font-size:11pt"> 16</span></p></td><td style="vertical-align:middle; width:264pt"><p style= "margin:0pt"><span style="font-family:'[employer] [place]'; font-size:11pt; font- weight:bold">O2 Sat:</span><span style="font-family:'[employer] [place]'; font-size :11pt"> 99</span></p></td></tr><tr><td colspan="2" style="vertical-align:middle ; width:528pt"><p style="margin:0pt"><span style="font-family:'[employer] [place]' ; font-size:11pt; font-weight:bold">BP:</span><span style="font-family:'[employer] [place]'; font-size:11pt"> 90/68</span></p></td></tr><tr style="height:0pt">< td style="width:264pt; border:none"></td><td style="width:264pt; border:none"></ td></tr></table><p style="margin:3.65pt 0pt 7.3pt"><span style="font-family:' [employer] [place] [employer] [place]'; font-size:11pt"></span></p><p style="margin:0pt"><span style= "display:none; font-family:'times new j carlos'; font-size:12pt"><%END%></span></p> <p style="margin:0pt"><span style="font-family:'times new j carlos'; font-size:12pt "></span></p><p style="margin:0pt"><span style="font-family:arial; font-size: 12pt; font-weight:bold">LOCATION INFORMATION</span></p><p style="margin:0pt">< span style="font-family:arial; font-size:8pt"> </span></p><table cellspacing="0" cellpadding="0" style="border-collapse:collapse; margin-left:0pt "><tr><td style="vertical-align:top; width:112.5pt"><p style="margin:3.65pt 0pt 7.3pt"><span style="display:none; font-family:'[employer] [place]'; font-size:11pt ; font-weight:normal"><%LOCTBL%></span><span style="font-family:'[employer] [place] '; font-size:10pt; font-weight:bold">Arrival</span></p></td><td style="vertical- align:top; width:112.5pt"><p style="margin:3.65pt 0pt 7.3pt"><span style="font- family:'[employer] [place]'; font-size:10pt; font-weight:bold">Nurse Unit</span></p ></td><td style="vertical-align:top; width:112.5pt"><p style="margin:3.65pt 0pt 7.3pt"><span style="font-family:'[employer] [place]'; font-size:10pt; font-weight: bold">Room</span></p></td><td style="vertical-align:top; width:112.5pt"><p style ="margin:3.65pt 0pt 7.3pt"><span style="font-family:'[employer] [place]'; font-size :10pt; font-weight:bold">Bed</span></p></td></tr><tr><td style="vertical-align: middle; width:112.5pt"><p style="margin:3.65pt 0pt 7.3pt"><span style="font- family:'[employer] [place]'; font-size:11pt"></span></p></td><td style="vertical- align:middle; width:112.5pt"><p style="margin:3.65pt 0pt 7.3pt"><span style= "font-family:'[employer] [place]'; font-size:11pt"></span></p></td><td style= "vertical-align:middle; width:112.5pt"><p style="margin:3.65pt 0pt 7.3pt"><span style="font-family:'[employer] [place]'; font-size:11pt"></span></p></td><td style ="vertical-align:middle; width:112.5pt"><p style="margin:3.65pt 0pt 7.3pt">< span style="font-family:'[employer] [place]'; font-size:11pt"></span></p></td></tr ></table><p style="margin:3.65pt 0pt 7.3pt"><span style="font-family:'[employer] [place]'; font-size:11pt"></span></p><p style="margin:3.65pt 0pt 7.3pt"><span style="display:none; font-family:'[employer] [place]'; font-size:11pt"><%END%></ span></p><p style="margin:0pt"><span style="font-family:'times new j carlos'; font- size:12pt"> </span></p><p style="margin:0pt"><span style="font-family:arial ; font-size:12pt; font-weight:bold">ORDERS INFORMATION</span></p><p style= "margin:0pt"><span style="font-family:arial; font-size:8pt"></span></p><p style="margin:3.65pt 0pt 7.3pt"><span style="display:none; font-family:'[employer] [place]'; font-size:11pt"><%ORDNRESTBL%></span><span style="display:none; font -family:'[employer] [place]'; font-size:11pt"><%END%></span></p><p style="margin: 0pt"><span style="font-family:'times new j carlos'; font-size:12pt"></span></p><p style="margin:0pt"><span style="font-family:arial; font-size:12pt; font-weight: bold">MEDICAL INFORMATION</span></p><p style="margin:0pt"><span style="font- family:arial; font-size:10pt"> Allergy Info: </span></p><p style="margin:0pt">< span style="font-family:arial; font-size:8pt"> </span><span style="display:none ; font-family:arial; font-size:10pt"><%ALLERGY%></span><span style="font-family: arial; font-size:10pt">NKA</span><span style="display:none; font-family:arial; font-size:10pt"><%END%></span></p><p style="margin:0pt"><span style="font-family :'times new j carlos'; font-size:12pt"> </span></p><p style="margin:0pt">< span style="display:none; font-family:arial; font-size:10pt"><%UDTHART_PEDS_VIS_ HEAR_TESTING%></span><span style="display:none; font-family:arial; font-size: 10pt"><%END%></span></p><p style="margin:0pt"><span style="font-family:'times new j carlos'; font-size:12pt"></span></p><p style="margin:0pt"><span style= "font-family:arial; font-size:12pt; font-weight:bold">HOME MEDICATIONS</span></p ><p style="margin:0pt"><span style="display:none; font-family:arial; font-size: 10pt"><%[facility]TH[facility]_DEPART_HOME_MEDS%></span><span style="font-family:'[employer] [place] [employer] [place]'; font-size:11pt; font-weight:bold">omeprazole 20 mg oral enteric coated capsule</span><span style="font-family:'[employer] [place]'; font-size:11pt"> 20 mg, 1 Cap, Oral, 2 times a day, 90 Day(s), 3 Refills</span></p><p style= "margin:0pt"><span style="font-family:'[employer] [place]'; font-size:11pt"></span ></p><p style="margin:0pt"><span style="display:none; font-family:arial; font- size:10pt"><%END%></span></p><p style="margin:0pt"><span style="font-family:' times new j carlos'; font-size:12pt"></span></p><p style="margin:0pt"><span style= "font-family:arial; font-size:12pt; font-weight:bold">DISCHARGE INFORMATION</ span></p><p style="margin:0pt"><span style="font-family:arial; font-size:10pt"> Discharge Disposition: </span><span style="display:none; font-family:arial; font -size:10pt"><%DISDISP%></span><span style="display:none; font-family:arial; font -size:10pt"><%END%></span></p><p style="margin:0pt"><span style="font-family: arial; font-size:10pt"> Discharge Location: </span><span style="display:none; font-family:arial; font-size:10pt"><%DISLOC%></span><span style="display:none ; font-family:arial; font-size:10pt"><%END%></span></p><p style="margin:0pt">< span style="font-family:'times new j carlos'; font-size:12pt"></span></p><p style="margin:0pt"><span style="font-family:arial; font-size:12pt; font-weight: bold">PATIENT EDUCATION INFORMATION</span></p><p style="margin:0pt"><span style= "font-family:arial; font-size:10pt"> Instructions:</span></p><p style="margin: 0pt"><span style="font-family:arial; font-size:10pt"> </span><span style= "display:none; font-family:arial; font-size:10pt"><%DISINSTRUCT%></span><span style="display:none; font-family:arial; font-size:10pt"><%END%></span></p><p style="margin:0pt"><span style="font-family:arial; font-size:10pt"> Follow up:</ span></p><p style="margin:0pt"><span style="font-family:arial; font-size:10pt"> </span></p><p style="margin:3.65pt 0pt 7.3pt"><span style="display:none; font -family:'[employer] [place]'; font-size:11pt"><%FOLLOWUPTABLE%></span><span style= "display:none; font-family:'[employer] [place]'; font-size:11pt"><%END%></span></p> <p style="margin:0pt"><span style="font-family:'times new j carlos'; font-size:12pt "></span></p><p style="margin:0pt"><span style="font-family:arial; font-size :12pt; font-weight:bold">DIAGNOSIS</span></p><p style="margin:0pt"><span style= "display:none; font-family:arial; font-size:8pt"><%DIAGNOSIS%></span><span style ="font-family:arial; font-size:8pt">Changing Skin Lesion</span><span style= "display:none; font-family:arial; font-size:8pt"><%END%></span></p><p style= "margin:0pt"><span style="font-family:'times new j carlos'; font-size:12pt"></span ></p><p style="margin:0pt"><span style="font-family:'times new j carlos'; font- size:12pt"></span></p><p style="margin:0pt"><span style="font-family:'times new j carlos'; font-size:12pt"></span></p><p style="margin:0pt"><span style="font- family:'times new j carlos'; font-size:12pt"></span></p><p style="margin:0pt">< span style="font-family:'times new j carlos'; font-size:12pt"></span></p><p style= "margin:0pt"><span style="font-family:'times new j carlos'; font-size:12pt">< /span></p><p style="margin:3.65pt 0pt 7.3pt"><span style="font-family:'times new j carlos'; font-size:12pt"></span></p></div> 12/18/2011 [facility] Amb Nurs Intake Event Amb Nurs Intake Event 2010 [facility] SMEG-Healthcare Goals 1 SMEG-Healthcare Goals 1 No No Yes No No No No No No No 12/22/2010 [facility] Office/Clinic Notes Office/Clinic Notes <div><p style="margin:0pt; text-align:center"><span style= "background-color:#ffffff; font-family:[place]; font-size:10pt; font-weight:bold"> [facility]</span></p><p style="margin:0pt; text-align: center"><span style="background-color:#ffffff; font-family:[place]; font-size:10pt ; font-weight:bold">[address] [facility]</span></p><p style="margin:0pt; text -align:center"><span style="background-color:#ffffff; font-family:[place]; font- size:10pt; font-weight:bold">[place] [address]</span></p><p style="margin: 0pt; text-align:center"><span style="background-color:#ffffff; font-family:[place] ; font-size:10pt; font-weight:bold">[phone] </span></p><p style="margin:0pt; text-align:center"><span style="font-family:[place]; font-size: 10pt; font-weight:bold"></span></p><p style="margin:0pt"><span style= "background-color:#ffffff; font-family:[place]; font-size:10pt">PATIENT: SANIA CARBONE LESLIE</span></p><p style="margin:0pt"><span style="background-color:# ffffff; font-family:[place]; font-size:10pt">MR #: [id number]</span></p><p style= "margin:0pt"><span style="background-color:#ffffff; font-family:[place]; font -size:10pt"> </span></p><p style="margin:0pt"><span style= "background-color:#ffffff; font-family:[place]; font-size:10pt">: 1989</span></p><p style="margin:0pt"><span style="background-color:#ffffff; font -family:[place]; font-size:10pt">DATE SEEN: 04/22/2010</span></p><p style="margin: 0pt"><span style="font-family:[place]; font-size:10pt"></span></p><p style= "margin:0pt"><span style="background-color:#ffffff; font-family:[place]; font-size :10pt; font-weight:bold">Chief Complaint</span></p><p style="margin:0pt"><span style="background-color:#ffffff; font-family:[place]; font-size:10pt">nasal congestion and cough x 3-4 days</span></p><p style="margin:0pt"><span style= "font-family:[place]; font-size:10pt"></span></p><p style="margin:0pt"><span style="font-family:[place]; font-size:10pt"> </span></p><p style="margin: 0pt"><span style="background-color:#ffffff; font-family:[place]; font-size:10pt; font-weight:bold">History of Present Illness</span></p><p style="margin:0pt "><span style="background-color:#ffffff; font-family:[place]; font-size:10pt">C</ span><span style="background-color:#ffffff; font-family:[place]; font-size:10pt"> ough, cold, congestion, sore throat, runny nose, wheezing little bit, gone on since last Wednesday, worse Wednesday, started to get a little better, congested. </ span></p><p style="margin:0pt"><span style="font-family:[place]; font-size:10pt"> </span></p><p style="margin:0pt"><span style="background-color:#ffffff; font- family:[place]; font-size:10pt; font-weight:bold">Review of Systems </span></p>&lt ;p style="margin:0pt"><span style="font-family:[place]; font-size:10pt"></span></ p><p style="margin:0pt"><span style="font-family:[place]; font-size:10pt"> </ span></p><p style="margin:0pt"><span style="background-color:#ffffff; font- family:[place]; font-size:10pt; font-weight:bold">Allergies</span></p><p style= "margin:0pt"><span style="background-color:#ffffff; font-family:[place]; font-size :10pt">NKA</span></p><p style="margin:0pt"><span style="font-family:[place]; font- size:10pt"></span></p><p style="margin:0pt"><span style="background-color:# ffffff; font-family:[place]; font-size:10pt; font-weight:bold">Current Medications </span></p><p style="margin:0pt"><span style="background-color:#ffffff; font- family:[place]; font-size:10pt">No medications found.</span></p><p style="margin: 0pt"><span style="font-family:[place]; font-size:10pt"> </span></p><p style="margin:0pt"><span style="background-color:#ffffff; font-family:[place]; font-size:10pt; font-weight:bold">Problems and Past Medical History</span></p>< p style="margin:0pt"><span style="background-color:#ffffff; font-family:[place]; font-size:10pt; text-decoration:underline">Active</span></p><p style="margin:0pt "><span style="background-color:#ffffff; font-family:[place]; font-size:10pt"> Asthma, unspecified</span></p><p style="margin:0pt"><span style="background- color:#ffffff; font-family:[place]; font-size:10pt">Allergic Rhinitis, Seasonal or NOS</span></p><p style="margin:0pt"><span style="font-family:[place]; font-size :10pt"></span></p><p style="margin:0pt"><span style="background-color:# ffffff; font-family:[place]; font-size:10pt; font-weight:bold">Family History</ span></p><p style="margin:0pt"><span style="background-color:#ffffff; font- family:[place]; font-size:10pt; text-decoration:underline">Neurological Peds Health History</span></p><p style="margin:0pt"><span style="background-color:# ffffff; font-family:[place]; font-size:10pt">Frequent Headaches Medical History: Mother, Sibling, MIGRAINES</span></p><p style="margin:0pt"><span style= "background-color:#ffffff; font-family:[place]; font-size:10pt; text-decoration: underline">Oncologic Peds Health History</span></p><p style="margin:0pt"><span style="background-color:#ffffff; font-family:[place]; font-size:10pt">Lymphoma Medical History: Grandparents, CERVICAL CA.</span></p><p style="margin:0pt">< span style="background-color:#ffffff; font-family:[place]; font-size:10pt"> Oncologic, Other Medical History: Grandparents, bladder</span></p><p style= "margin:0pt"><span style="background-color:#ffffff; font-family:[place]; font -size:10pt; text-decoration:underline">General Peds Health History</span></p><p style="margin:0pt"><span style="background-color:#ffffff; font-family:[place]; font-size:10pt">Allergy Peds Health History: Father, Sibling</span></p><p style= "margin:0pt"><span style="background-color:#ffffff; font-family:[place]; font-size :10pt; text-decoration:underline">Cardiovascular Peds History</span></p><p style ="margin:0pt"><span style="background-color:#ffffff; font-family:[place]; font- size:10pt">Congenital Heart Disease Ped Health Hx: Grandparents</span></p><p style="margin:0pt"><span style="background-color:#ffffff; font-family:[place]; font-size:10pt">High Blood Pressure Medical History: Grandparents</span></p><p style="margin:0pt"><span style="background-color:#ffffff; font-family:[place]; font-size:10pt; text-decoration:underline">Respiratory Peds Health History</span ></p><p style="margin:0pt"><span style="background-color:#ffffff; font- family:[place]; font-size:10pt">Asthma Medical History: Sibling</span></p><p style ="margin:0pt"><span style="background-color:#ffffff; font-family:[place]; font- size:10pt">Respiratory, Other Medical History: Mother, SLEEP APNEA</span></p><p style="margin:0pt"><span style="background-color:#ffffff; font-family:[place]; font-size:10pt; text-decoration:underline">Gastrointestinal Ped Health History</ span></p><p style="margin:0pt"><span style="background-color:#ffffff; font- family:[place]; font-size:10pt">Gastrointestinal, Other Medical History: Mother, IBS</span></p><p style="margin:0pt"><span style="background-color:#ffffff; font- family:[place]; font-size:10pt; text-decoration:underline">Genitourinary Peds Health History</span></p><p style="margin:0pt"><span style="background-color:# ffffff; font-family:[place]; font-size:10pt">Genitourinary, Other Medical History : Sibling, VURD</span></p><p style="margin:0pt"><span style="background-color :#ffffff; font-family:[place]; font-size:10pt; text-decoration:underline"> Musculoskeletal Peds Health Hx</span></p><p style="margin:0pt"><span style= "background-color:#ffffff; font-family:[place]; font-size:10pt">Musculoskeletal, Other Medical History: Sibling, JRA</span></p><p style="margin:0pt"><span style= "background-color:#ffffff; font-family:[place]; font-size:10pt; text-decoration: underline">Immunologic Past Medical History</span></p><p style="margin:0pt">< span style="background-color:#ffffff; font-family:[place]; font-size:10pt"> Immunologic, Other Medical History: SCLERODERMA</span></p><p style="margin:0pt"> <span style="background-color:#ffffff; font-family:[place]; font-size:10pt; text- decoration:underline">Endocrine/Metabolic Past Med Hx</span></p><p style="margin :0pt"><span style="background-color:#ffffff; font-family:[place]; font-size:10pt"> Diabetes Medical History: Grandparents</span></p><p style="margin:0pt"><span style="font-family:[place]; font-size:10pt"></span></p><p style="margin:0pt">< span style="background-color:#ffffff; font-family:[place]; font-size:10pt; font- weight:bold">Procedure History</span></p><p style="margin:0pt"><span style= "background-color:#ffffff; font-family:[place]; font-size:10pt">X 2 SURGERIES LT ANKLE</span></p><p style="margin:0pt"><span style="font-family:[place]; font-size: 10pt"></span></p><p style="margin:0pt"><span style="background-color:#ffffff; font-family:[place]; font-size:10pt; font-weight:bold">Social History</span></p>< p style="margin:0pt"><span style="background-color:#ffffff; font-family:[place]; font-size:10pt">Caffeine Use: Current</span></p><p style="margin:0pt"><span style="background-color:#ffffff; font-family:[place]; font-size:10pt">Caffeine Type: Soda</span></p><p style="margin:0pt"><span style="background-color:#ffffff ; font-family:[place]; font-size:10pt">Caffeine Frequency: Weekly</span></p><p style="margin:0pt"><span style="background-color:#ffffff; font-family:[place]; font-size:10pt">Recreational Drug Use: Denies</span></p><p style="margin:0pt">< span style="background-color:#ffffff; font-family:[place]; font-size:10pt"> Alcohol Use: Not applicable due to age</span></p><p style="margin:0pt"><span style="background-color:#ffffff; font-family:[place]; font-size:10pt">Tobacco Use : Denies</span></p><p style="margin:0pt"><span style="font-family:[place]; font-size:10pt"></span></p><p style="margin:0pt"><span style="background-color: #ffffff; font-family:[place]; font-size:10pt; font-weight:bold">Physical Examination</span></p><p style="margin:0pt"><span style="background-color:# ffffff; font-family:[place]; font-size:10pt">Temperature Oral</span><span style= "width:54.54pt; text-indent:0pt; display:inline-block; -hc-nlpagtp-ddpwz:left; - kk-mkxpdvu-pyg:125pt"></span><span style="background-color:#ffffff; font-family: [place]; font-size:10pt"> 36.8 DegC</span></p><p style="margin:0pt"><span style= "background-color:#ffffff; font-family:[place]; font-size:10pt">Peripheral Pulse Rate</span><span style="width:42.25pt; text-indent:0pt; display:inline-block; - lo-fsvaoir-apmrl:left; -vy-svnqsja-zpe:125pt"></span><span style="background- color:#ffffff; font-family:[place]; font-size:10pt"> 72 bpm</span></p><p style= "margin:0pt"><span style="background-color:#ffffff; font-family:[place]; font-size :10pt">Respiratory Rate</span><span style="width:60.85pt; text-indent:0pt; display:inline-block; -ag-mzkrovz-ecevt:left; -ws-iumqkzv-qlh:125pt"></span>< span style="background-color:#ffffff; font-family:[place]; font-size:10pt"> 18 br/ min</span></p><p style="margin:0pt"><span style="background-color:#ffffff; font- family:[place]; font-size:10pt">Systolic Blood Pressure</span><span style="width: 36.21pt; text-indent:0pt; display:inline-block; -vk-dgejvgq-rtscv:left; -aw- tabstop-pos:125pt"></span><span style="background-color:#ffffff; font-family: [place]; font-size:10pt"> 106 mmHg</span></p><p style="margin:0pt"><span style= "background-color:#ffffff; font-family:[place]; font-size:10pt">Diastolic Blood Pressure</span><span style="width:31.9pt; text-indent:0pt; display:inline- block; -gv-lvcsqbt-yovww:left; -xa-rifdwbb-xmw:125pt"></span><span style= "background-color:#ffffff; font-family:[place]; font-size:10pt"> 68 mmHg</span> </p><p style="margin:0pt"><span style="background-color:#ffffff; font-family: [place]; font-size:10pt">Mean Arterial Pressure.</span><span style="width:33.79pt ; text-indent:0pt; display:inline-block; -rx-xktfmgg-rhekn:left; -nm-zajhjbp-voi :125pt"></span><span style="background-color:#ffffff; font-family:[place]; font- size:10pt"> 80.67 mmHg</span></p><p style="margin:0pt"><span style="background- color:#ffffff; font-family:[place]; font-size:10pt">Blood Pressure Location</span> <span style="width:32.39pt; text-indent:0pt; display:inline-block; -aw-tabstop- align:left; -ey-hpisexl-ftf:125pt"></span><span style="background-color:#ffffff ; font-family:[place]; font-size:10pt"> Right arm </span></p><p style="margin:0pt "><span style="font-family:[place]; font-size:10pt"></span></p><p style="margin: 0pt"><span style="background-color:#ffffff; font-family:[place]; font-size:10pt"> Height</span><span style="width:98.19pt; text-indent:0pt; display:inline-block; -oz-txrlvoc-oclry:left; -ce-rvganfx-agl:125pt"></span><span style="background- color:#ffffff; font-family:[place]; font-size:10pt"> 167.6 cm</span></p><p style= "margin:0pt"><span style="background-color:#ffffff; font-family:[place]; font-size :10pt">Weight</span><span style="width:96.02pt; text-indent:0pt; display:inline- block; -oy-rexdqzs-bwngy:left; -ss-dbmvnzr-aku:125pt"></span><span style= "background-color:#ffffff; font-family:[place]; font-size:10pt"> 66.200 kg ( 145.95 lbs)</span></p><p style="margin:0pt"><span style="background-color:# ffffff; font-family:[place]; font-size:10pt">BSA</span><span style="width:106.82pt ; text-indent:0pt; display:inline-block; -wd-mjwqssj-wvbxw:left; -fa-clytvxe-wrv :125pt"></span><span style="background-color:#ffffff; font-family:[place]; font-size:10pt"> 1.7556 m2</span></p><p style="margin:0pt"><span style= "background-color:#ffffff; font-family:[place]; font-size:10pt">Body Mass Index</ span><span style="width:58.7pt; text-indent:0pt; display:inline-block; -aw- tabstop-align:left; -bu-gblkpbl-nih:125pt"></span><span style="background-color: #ffffff; font-family:[place]; font-size:10pt"> 23.6</span></p><p style="margin:0pt "><span style="font-family:[place]; font-size:10pt"></span></p><p style="margin: 0pt"><span style="background-color:#ffffff; font-family:[place]; font-size:10pt"> Vital signs: Per chart. General: Well-hydrated, well-developed, well-nourished and in no acute distress. HEENT: Neck supple, no nodes; ears clear; TMs normal; eyes - conjunctivae clear, EOMI, PERRLA, fundi benign. Pharynx: Tongue and uvula midline, no exudate or injection. </span><span style="background-color:# ffffff; font-family:[place]; font-size:10pt">Postnasal drainage, anterior nodes.& lt;/span><span style="background-color:#ffffff; font-family:[place]; font-size: 10pt"> Chest: Respirations unlabored, lungs are clear. Heart: Regular rate and rhythm without murmur. Abdomen: Soft, nontender, no masses, organomegaly, guarding or rebound. Bowel sounds positive. Extremities: Nontender without edema. Pulses are 2+ and equal. Neurologic: Cranial nerves are intact, no motor or sensory deficits. Cerebellar function is normal. Mental status: Alert, oriented x3, cooperative. Skin: Without rash.</span></p><p style="margin:0pt">< span style="font-family:[place]; font-size:10pt"></span></p><p style="margin:0pt "><span style="background-color:#ffffff; font-family:[place]; font-size:10pt; font-weight:bold">Impression</span></p><p style="margin:0pt"><span style= "background-color:#ffffff; font-family:[place]; font-size:10pt">Sinusitis (473.9)< /span></p><p style="margin:0pt"><span style="background-color:#ffffff; font- family:[place]; font-size:10pt">Acute Bronchitis (466.0)</span></p><p style= "margin:0pt"><span style="font-family:[place]; font-size:10pt"></span></p><p style="margin:0pt"><span style="font-family:[place]; font-size:10pt"></span></p>< p style="margin:0pt"><span style="font-family:[place]; font-size:10pt"></span></p ><p style="margin:0pt"><span style="background-color:#ffffff; font-family:[place] ; font-size:10pt; font-weight:bold">Plan</span></p><p style="margin:0pt"><span style="background-color:#ffffff; font-family:[place]; font-size:10pt; font-weight: bold">Medication changes this visit:</span></p><p style="margin:0pt"><span style="background-color:#ffffff; font-family:[place]; font-size:10pt; text- decoration:underline">New</span></p><p style="margin:0pt"><span style= "background-color:#ffffff; font-family:[place]; font-size:10pt">Lortab Elixir oral , 15 mL, PRN, Q6H, Quantity: 240, Refills: 0</span></p><p style="margin:0pt">< span style="background-color:#ffffff; font-family:[place]; font-size:10pt">Rynatan , 1 Tab, PRN, Q12H, Quantity: 20, Refills: 1</span></p><p style="margin:0pt">< span style="background-color:#ffffff; font-family:[place]; font-size:10pt"> azithromycin 500 mg oral tablet, 500 mg=1 Tab, daily, Quantity: 6, Refills: 0</ span></p><p style="margin:0pt"><span style="font-family:[place]; font-size:10pt"> </span></p><p style="margin:0pt"><span style="background-color:#ffffff; font- family:[place]; font-size:10pt">Treat with Rynatan, Zithromax, Lortab, followup not improved. </span></p><p style="margin:0pt"><span style="font-family:[place]; font-size:12pt"></span></p><p style="margin:0pt"><span style="font-family:[facility] [place] ; font-size:12pt"></span></p><p style="margin:0pt"><span style="background- color:#ffffff; font-family:[place]; font-size:10pt">Risks, benefits of medications and/or treatment options explained. Alternatives and expected outcome discussed. Patient and/or family verbalized understanding. Patient instructed to follow up sooner than directed if new symptoms develop or current symptoms worsen. Otherwise follow up prn.</span></p><p style="margin:0pt">< span style="font-family:[place]; font-size:10pt"></span></p><p style="margin:0pt "><span style="font-family:[place]; font-size:10pt"></span></p><p style="margin: 0pt"><span style="background-color:#ffffff; font-family:[place]; font-size:10pt"> TR:</span><span style="width:14.48pt; text-indent:0pt; display:inline-block; -aw -tabstop-align:left; -qb-oijlmgl-dfg:30pt"></span><span style="background-color: #ffffff; font-family:[place]; font-size:10pt">[facility]</span></p><p style="margin: 0pt"><span style="background-color:#ffffff; font-family:[place]; font-size:10pt"> DD:</span><span style="width:12.63pt; text-indent:0pt; display:inline-block; -aw -tabstop-align:left; -bv-fcgtqbc-pjj:30pt"></span><span style="background-color: #ffffff; font-family:[place]; font-size:10pt">11</span><span style="background- color:#ffffff; font-family:[facility] [place]; font-size:10pt"> 1345</span></p><p style="margin:0pt"><span style="background-color:#ffffff; font-family:[facility] [place]; font-size:10pt">DT:</span><span style="width:13.31pt; text-indent:0pt; display: inline-block; -ds-puqaain-limoc:left; -sk-tdrzrvj-iqq:30pt"></span><span style= "background-color:#ffffff; font-family:[place]; font-size:10pt">04/23/2010 11:07</ span></p><p style="margin:0pt"><span style="font-family:[place]; font-size:10pt"> </span></p><p style="margin:0pt"><span style="background-color:#ffffff; font- family:[place]; font-size:10pt">JJ#:</span><span style="width:2.84pt; text-indent :0pt; display:inline-block; -qv-gokpprh-rjrkn:left; -aa-kexuuuo-ihv:30pt"></span ><span style="background-color:#ffffff; font-family:[place]; font-size:10pt">885</ span><span style="background-color:#ffffff; font-family:[place]; font-size:10pt ">545</span></p><p style="margin:0pt"><span style="font-family:[place]; font-size: 10pt"></span></p></div> [Electronically Signed on 04.23.2010 12:55 pm]
Maria Teresa Galicia DO
</br> 04/22/2010 [Electronically Signed on 04.23.2010 12:55 pm] Maria Teresa Galicia DO [facility] Office/Clinic Notes Office/Clinic Notes <div><p style="margin:0pt; text-align:center"><span style= "background-color:#ffffff; font-family:[place]; font-size:10pt; font-weight:bold"> [facility]</span></p><p style="margin:0pt; text-align: center"><span style="background-color:#ffffff; font-family:[place]; font-size:10pt ; font-weight:bold">[address] [facility]</span></p><p style="margin:0pt; text -align:center"><span style="background-color:#ffffff; font-family:[place]; font- size:10pt; font-weight:bold">[place] [address]</span></p><p style="margin: 0pt; text-align:center"><span style="background-color:#ffffff; font-family:[place] ; font-size:10pt; font-weight:bold">[phone] </span></p><p style="margin:0pt; text-align:center"><span style="font-family:[place]; font-size: 10pt; font-weight:bold"></span></p><p style="margin:0pt"><span style= "background-color:#ffffff; font-family:[place]; font-size:10pt">PATIENT: SANIA CARBONE</span></p><p style="margin:0pt"><span style="background-color:# ffffff; font-family:[place]; font-size:10pt">MR #: [id number]</span></p><p style= "margin:0pt"><span style="background-color:#ffffff; font-family:[place]; font -size:10pt"> </span></p><p style="margin:0pt"><span style= "background-color:#ffffff; font-family:[place]; font-size:10pt">: 1989</span></p><p style="margin:0pt"><span style="background-color:#ffffff; font -family:[place]; font-size:10pt">DATE SEEN: 09/18/2010</span></p><p style="margin: 0pt"><span style="font-family:[place]; font-size:10pt"></span></p><p style= "margin:0pt"><span style="background-color:#ffffff; font-family:[place]; font-size :10pt; font-weight:bold">Chief Complaint</span></p><p style="margin:0pt"><span style="background-color:#ffffff; font-family:[place]; font-size:10pt">Patient is here for acne on back</span></p><p style="margin:0pt"><span style="font- family:[place]; font-size:10pt"></span></p><p style="margin:0pt"><span style= "font-family:[place]; font-size:10pt"> </span></p><p style="margin:0pt">< span style="background-color:#ffffff; font-family:[place]; font-size:10pt; font- weight:bold">History of Present Illness</span></p><p style="margin:0pt"><span style="background-color:#ffffff; font-family:[place]; font-size:10pt">Has bumps on her back, forehead for the last </span><span style="background-color:#ffffff ; font-family:[place]; font-size:10pt">3 weeks, tried Stridex, some over the counter acne medicines without relief. As noted on back, chest, face and neck and itching, raised, bumpy rash, some of the areas do form heads according to mother. 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 Has a history of seasonal allergies, takes Claritin. </span></p><p style="margin:0pt"><span style ="font-family:[place]; font-size:10pt"></span></p><p style="margin:0pt"><span style="background-color:#ffffff; font-family:[place]; font-size:10pt; font-weight: bold">Review of Systems </span></p><p style="margin:0pt"><span style="font- family:[facility] [place]; font-size:10pt"></span></p><p style="margin:0pt"><span style= "font-family:[facility] [place]; font-size:10pt"></span></p><p style="margin:0pt"><span style="background-color:#ffffff; font-family:[place]; font-size:10pt; font-weight: bold">Allergies</span></p><p style="margin:0pt"><span style="background-color:# ffffff; font-family:[place]; font-size:10pt">NKA</span></p><p style="margin:0pt">< span style="font-family:[place]; font-size:10pt"></span></p><p style="margin:0pt "><span style="background-color:#ffffff; font-family:[place]; font-size:10pt; font -weight:bold">Current Medications</span></p><p style="margin:0pt"><span style= "background-color:#ffffff; font-family:[place]; font-size:10pt">No medications found.</span></p><p style="margin:0pt"><span style="font-family:[place]; font-size :10pt"></span></p><p style="margin:0pt"><span style="background-color:#ffffff; font-family:[place]; font-size:10pt; font-weight:bold">Problems and Past Medical History</span></p><p style="margin:0pt"><span style="background-color:# ffffff; font-family:[place]; font-size:10pt; text-decoration:underline">Active</ span></p><p style="margin:0pt"><span style="background-color:#ffffff; font- family:[place]; font-size:10pt">Allergic Rhinitis, Seasonal or NOS</span></p><p style="margin:0pt"><span style="background-color:#ffffff; font-family:[place]; font-size:10pt">Asthma, unspecified</span></p><p style="margin:0pt"><span style="background-color:#ffffff; font-family:[place]; font-size:10pt">Nasal Fracture</span></p><p style="margin:0pt"><span style="font-family:[place]; font- size:10pt"></span></p><p style="margin:0pt"><span style="background-color:# ffffff; font-family:[place]; font-size:10pt; font-weight:bold">Family History</ span></p><p style="margin:0pt"><span style="background-color:#ffffff; font- family:[place]; font-size:10pt; text-decoration:underline">Neurological Peds Health History</span></p><p style="margin:0pt"><span style="background-color:# ffffff; font-family:[place]; font-size:10pt">Frequent Headaches Medical History: Mother, Sibling, MIGRAINES</span></p><p style="margin:0pt"><span style= "background-color:#ffffff; font-family:[place]; font-size:10pt; text-decoration: underline">Oncologic Peds Health History</span></p><p style="margin:0pt"><span style="background-color:#ffffff; font-family:[place]; font-size:10pt">Lymphoma Medical History: Grandparents, CERVICAL CA.</span></p><p style="margin:0pt">< span style="background-color:#ffffff; font-family:[place]; font-size:10pt"> Oncologic, Other Medical History: Grandparents, bladder</span></p><p style= "margin:0pt"><span style="background-color:#ffffff; font-family:[place]; font-size :10pt; text-decoration:underline">General Peds Health History</span></p><p style ="margin:0pt"><span style="background-color:#ffffff; font-family:[place]; font- size:10pt">Allergy Peds Health History: Father, Sibling</span></p><p style= "margin:0pt"><span style="background-color:#ffffff; font-family:[place]; font-size :10pt; text-decoration:underline">Cardiovascular Peds History</span></p><p style ="margin:0pt"><span style="background-color:#ffffff; font-family:[place]; font-size:10pt">Congenital Heart Disease Ped Health Hx: Grandparents</span></p>< p style="margin:0pt"><span style="background-color:#ffffff; font-family:[place]; font-size:10pt">High Blood Pressure Medical History: Grandparents</span></p><p style="margin:0pt"><span style="background-color:#ffffff; font-family:[place]; font-size:10pt; text-decoration:underline">Respiratory Peds Health History</span ></p><p style="margin:0pt"><span style="background-color:#ffffff; font-family: [place]; font-size:10pt">Asthma Medical History: Sibling</span></p><p style= "margin:0pt"><span style="background-color:#ffffff; font-family:[place]; font-size :10pt">Respiratory, Other Medical History: Mother, SLEEP APNEA</span></p><p style="margin:0pt"><span style="background-color:#ffffff; font-family:[facility] [place]; font-size:10pt; text-decoration:underline">Gastrointestinal Ped Health History</ span></p><p style="margin:0pt"><span style="background-color:#ffffff; font- family:[facility] [place]; font-size:10pt">Gastrointestinal, Other Medical History: Mother, IBS</span></p><p style="margin:0pt"><span style="background-color:#ffffff; font-family:[place]; font-size:10pt; text-decoration:underline">Genitourinary Peds Health History</span></p><p style="margin:0pt"><span style="background- color:#ffffff; font-family:[place]; font-size:10pt">Genitourinary, Other Medical History: Sibling, VURD</span></p><p style="margin:0pt"><span style="background- color:#ffffff; font-family:[place]; font-size:10pt; text-decoration:underline"> Musculoskeletal Peds Health Hx</span></p><p style="margin:0pt"><span style= "background-color:#ffffff; font-family:[place]; font-size:10pt">Musculoskeletal, Other Medical History: Sibling, JRA</span></p><p style="margin:0pt"><span style= "background-color:#ffffff; font-family:[place]; font-size:10pt; text-decoration: underline">Immunologic Past Medical History</span></p><p style="margin:0pt">< span style="background-color:#ffffff; font-family:[place]; font-size:10pt"> Immunologic, Other Medical History: SCLERODERMA</span></p><p style="margin:0pt"> <span style="background-color:#ffffff; font-family:[facility] [place]; font-size:10pt; text- decoration:underline">Endocrine/Metabolic Past Med Hx</span></p><p style="margin :0pt"><span style="background-color:#ffffff; font-family:[place]; font-size: 10pt">Diabetes Medical History: Grandparents</span></p><p style="margin:0pt">< span style="font-family:[place]; font-size:10pt"> </span></p><p style= "margin:0pt"><span style="background-color:#ffffff; font-family:[facility] [place]; font-size :10pt; font-weight:bold">Procedure History</span></p><p style="margin:0pt">< span style="background-color:#ffffff; font-family:[place]; font-size:10pt">X 2 SURGERIES LT ANKLE</span></p><p style="margin:0pt"><span style="font-family: [place]; font-size:10pt"></span></p><p style="margin:0pt"><span style="background -color:#ffffff; font-family:[place]; font-size:10pt; font-weight:bold">Social History</span></p><p style="margin:0pt"><span style="background-color:# ffffff; font-family:[place]; font-size:10pt">Current Tobacco Usage: Denies</span>< /p><p style="margin:0pt"><span style="background-color:#ffffff; font-family: [place]; font-size:10pt">Caffeine Use: Current</span></p><p style="margin:0pt">< span style="background-color:#ffffff; font-family:[facility] [place]; font-size:10pt"> Caffeine Type: Soda</span></p><p style="margin:0pt"><span style="background- color:#ffffff; font-family:[facility] [place]; font-size:10pt">Caffeine Frequency: Weekly</ span></p><p style="margin:0pt"><span style="background-color:#ffffff; font- family:[place]; font-size:10pt">Recreational Drug Use: Denies</span></p><p style= "margin:0pt"><span style="background-color:#ffffff; font-family:[facility] [place]; font-size :10pt">Alcohol Use: Not applicable due to age</span></p><p style="margin:0pt">< span style="font-family:[facility] [place]; font-size:10pt"></span></p><p style="margin:0pt "><span style="background-color:#ffffff; font-family:[facility] [place]; font-size:10pt; font -weight:bold">Physical Examination</span></p><p style="margin:0pt"><span style= "background-color:#ffffff; font-family:[facility] [place]; font-size:10pt; text-decoration: underline">TEMP </span><span style="width:25.46pt; text-indent:0pt; display: inline-block; -ww-jcjeslw-vjtwa:left; -wk-pgcadll-moe:55pt"></span><span style="background-color:#ffffff; font-family:[facility] [place]; font-size:10pt; text- decoration:underline">BP </span><span style="width:36.44pt; text-indent:0pt; display:inline-block; -sl-bkefnty-kowbx:left; -ck-xsirhyb-mkh:105pt"></span>< span style="background-color:#ffffff; font-family:[facility] [place]; font-size:10pt; text- decoration:underline">Pulse </span><span style="width:27.08pt; text-indent:0pt; display:inline-block; -lg-laufdfy-hbcbb:left; -hg-iuhajvx-hte:155pt"></span>< span style="background-color:#ffffff; font-family:[facility] [place]; font-size:10pt; text- decoration:underline">RR </span><span style="width:35.18pt; text-indent:0pt ; display:inline-block; -fz-vsjodrw-hwbzr:left; -sb-ittdrhs-tmg:205pt"></span>< span style="background-color:#ffffff; font-family:[place]; font-size:10pt; text- decoration:underline">MAP </span><span style="width:26.43pt; text-indent:0pt ; display:inline-block; -cm-jivnhnv-qdnvi:left; -pw-ltyajis-ftm:255pt"></span>< span style="background-color:#ffffff; font-family:[place]; font-size:10pt; text- decoration:underline">O2 Sat </span></p><p style="margin:0pt"><span style= "background-color:#ffffff; font-family:[place]; font-size:10pt">36.3</span><span style="width:37.79pt; text-indent:0pt; display:inline-block; -il-tvfamiw-putmx: left; -pn-bcvvofk-aza:55pt"></span><span style="background-color:#ffffff; font- family:[place]; font-size:10pt">118/72</span><span style="width:20.94pt; text- indent:0pt; display:inline-block; -cb-pygskcp-mabaf:left; -ch-tkbjckq-oth:105pt "></span><span style="background-color:#ffffff; font-family:[place]; font-size: 10pt">97</span><span style="width:40pt; text-indent:0pt; display:inline-block; - bo-qyzhsny-lvfwc:left; -zb-oxbxpyn-qbw:155pt"></span><span style="background- color:#ffffff; font-family:[place]; font-size:10pt">16</span><span style="width :40pt; text-indent:0pt; display:inline-block; -sd-cwgmkxr-ersrf:left; -aw- tabstop-pos:205pt"></span><span style="background-color:#ffffff; font-family: [place]; font-size:10pt">87.33</span><span style="width:27.79pt; text-indent:0pt; display:inline-block; -vv-amyghsm-xocde:left; -tl-mksuqkj-deb:255pt"></span>< span style="background-color:#ffffff; font-family:[place]; font-size:10pt">100</ span></p><p style="margin:0pt"><span style="font-family:[place]; font-size:10pt"> </span></p><p style="margin:0pt"><span style="background-color:#ffffff; font- family:[place]; font-size:10pt">Oxygen Therapy: Room air </span></p><p style= "margin:0pt"><span style="font-family:[place]; font-size:10pt"></span></p><p style="margin:0pt"><span style="background-color:#ffffff; font-family:[place]; font-size:10pt; text-decoration:underline">Weight </span><span style="width: 94.02pt; text-indent:0pt; display:inline-block; -pm-xtfeirm-ihkzs:left; -aw- tabstop-pos:125pt"></span><span style="background-color:#ffffff; font-family: [place]; font-size:10pt; text-decoration:underline">Height </span><span style= "width:36.19pt; text-indent:0pt; display:inline-block; -tw-ugznxox-shhfm:left; - nz-nnmuawf-ljn:190pt"></span><span style="background-color:#ffffff; font-family: [place]; font-size:10pt; text-decoration:underline">BMI </span><span style= "width:29.8pt; text-indent:0pt; display:inline-block; -dx-edcxvbm-jytcy:left; - tk-bdepuxn-gnr:240pt"></span><span style="background-color:#ffffff; font-family: [place]; font-size:10pt; text-decoration:underline">BSA </span></p><p style= "margin:0pt"><span style="background-color:#ffffff; font-family:[place]; font-size :10pt">66.800 kg (147.27 lbs)</span><span style="width:39.47pt; text-indent:0pt ; display:inline-block; -mf-gmzuvll-mglmv:left; -ea-heqvylu-pkr:125pt"></span>< span style="background-color:#ffffff; font-family:[place]; font-size:10pt">171.4 cm</span><span style="width:29.28pt; text-indent:0pt; display:inline-block; -aw- tabstop-align:left; -ce-ouixeyi-oet:190pt"></span><span style="background-color: #ffffff; font-family:[place]; font-size:10pt">22.7</span><span style="width: 32.79pt; text-indent:0pt; display:inline-block; -fc-pckcrho-wqhzm:left; -aw- tabstop-pos:240pt"></span><span style="background-color:#ffffff; font-family: [place]; font-size:10pt">1.7834 m2</span></p><p style="margin:0pt"><span style= "font-family:[place]; font-size:10pt"></span></p><p style="margin:0pt"><span style="background-color:#ffffff; font-family:[facility] [place]; font-size:10pt">Scale: Standing digital </span></p><p style="margin:0pt"><span style="background-color: #ffffff; font-family:[place]; font-size:10pt">HEENT exam unremarkable. Heart rhythm regular. Lungs clear. Abdomen is soft. Bowel sounds are normoactive. She has a fine, </span><span style="background-color:#ffffff; font-family:[place]; font-size:10pt">pink, raised rash with some closed comedones noted as well scattered over the area between her scapula, on her forehead, on her chest that appears to be acne. </span></p><p style="margin:0pt"><span style="font-family: [place]; font-size:10pt"></span></p><p style="margin:0pt"><span style= "background-color:#ffffff; font-family:[place]; font-size:10pt; font-weight:bold"> Impression</span></p><p style="margin:0pt"><span style="background-color:#ffffff ; font-family:[place]; font-size:10pt">Acne (706.1)</span></p><p style="margin:0pt "><span style="font-family:[place]; font-size:10pt"></span></p><p style= "margin:0pt"><span style="font-family:[place]; font-size:10pt"></span></p><p style="margin:0pt"><span style="font-family:[place]; font-size:10pt"></span></p>< p style="margin:0pt"><span style="background-color:#ffffff; font-family:[place]; font-size:10pt; font-weight:bold">Plan</span></p><p style="margin:0pt"><span style="background-color:#ffffff; font-family:[facility] [place]; font-size:10pt; font-weight: bold">Medication changes this visit:</span></p><p style="margin:0pt"><span style="background-color:#ffffff; font-family:[place]; font-size:10pt; text- decoration:underline">New</span></p><p style="margin:0pt"><span style= "background-color:#ffffff; font-family:[place]; font-size:10pt">BenzaClin with pump topical gel, See Instructions, Quantity: 25, Refills: 0</span></p><p style= "margin:0pt"><span style="font-family:[place]; font-size:10pt"></span></p><p style="margin:0pt"><span style="font-family:[facility] [place]; font-size:10pt"></span></p>< p style="margin:0pt"><span style="font-family:[facility] [place]; font-size:12pt"></span></p ><p style="margin:0pt"><span style="font-family:[facility] [place]; font-size:12pt"></span>< /p><p style="margin:0pt"><span style="background-color:#ffffff; font-family: [place]; font-size:10pt">Risks, benefits of medications and/or treatment options explained. Alternatives and expected outcome discussed. Patient and/or family verbalized understanding. Patient instructed to follow up sooner than directed if new symptoms develop or current symptoms worsen. Otherwise follow up prn.</ span></p><p style="margin:0pt"><span style="font-family:[facility] [place]; font-size:10pt"> </span></p><p style="margin:0pt"><span style="font-family:[facility] [place]; font-size:10pt "></span></p><p style="margin:0pt"><span style="background-color:#ffffff; font- family:[facility] [place]; font-size:10pt">TR:</span><span style="width:14.48pt; text-indent: 0pt; display:inline-block; -fj-qsqggta-grghb:left; -rr-ntsbwsb-kzw:30pt"></span> <span style="background-color:#ffffff; font-family:[facility] [place]; font-size:10pt"> WILSON[facility]</span></p><p style="margin:0pt"><span style="background-color:#ffffff; font-family:[facility] [place]; font-size:10pt">DD:</span><span style="width:12.63pt; text- indent:0pt; display:inline-block; -jg-qkvtqrd-lygmv:left; -dm-ddfoova-rmd:30pt"> </span><span style="background-color:#ffffff; font-family:[facility] [place]; font-size:10pt ">09/18/2010</span><span style="background-color:#ffffff; font-family:[place]; font -size:10pt"> 1710</span></p><p style="margin:0pt"><span style="background-color: #ffffff; font-family:[place]; font-size:10pt">DT:</span><span style="width:13.31pt ; text-indent:0pt; display:inline-block; -gl-yuybzbk-cvtpy:left; -mm-fzmwfvl-jpk :30pt"></span><span style="background-color:#ffffff; font-family:[facility] [place]; font- size:10pt">09/21/2010 11:09</span></p><p style="margin:0pt"><span style="font- family:[facility] [place]; font-size:10pt"></span></p><p style="margin:0pt"><span style ="background-color:#ffffff; font-family:[facility] [place]; font-size:10pt">JJ#:</span>< span style="width:2.84pt; text-indent:0pt; display:inline-block; -[employer]- align:left; -lt-qyacnyr-vbs:30pt"></span><span style="background-color:#ffffff; font-family:[place]; font-size:10pt">99</span><span style="background-color:# ffffff; font-family:[place]; font-size:10pt">[id number]</span></p><p style="margin: 0pt"><span style="font-family:[place]; font-size:10pt"></span></p></div> [Electronically Signed on 09.25.2010 10:41 am]
Judith Moses APN
</br> 09/18/2010 [Electronically Signed on 09.25.2010 10:41 am] Judith Moses APN [facility] Emergency Room Documents Emergency Room Documents Patient: SANIA CARBONE Age: 20 years Sex: Female : 89 Associated Diagnoses: None Author: Charlie Reyna MD Basic Information Vital signs: , First ED Vitals (05/15/10 21:33) Temp BP Pulse RR SAO2 O2 Flow Rate MAP 36.2 136/62 69 16 100 Most Recent Vitals (as of 05/15/10 22:42) Temp BP Pulse RR SAO2 O2 Flow Rate MAP 36.2 100/56 71 18 99 Vitals Range (05/15/10 21:33 to 05/15/10 22:42) Temp BP Pulse RR SAO2 O2 Flow Rate MAP 36.2 100-136 69-71 16-18 99-100 56-62 Oxygen saturation: Oxygen Therapy & Oxygenation Information, 05/15/10 22:42 Oxygen Therapy Room air Oxygen Saturation 99 % 05/15/10 21:33 Oxygen Saturation 100 % Measurements. 05/15/10 21:33 Height 167.6 cm Admission Weight 65.00 kg Scale Stated weight Admission BMI 23.1 Allergies: . Allergic Reactions (Selected) NKA Notes: Chief Complaint from Nursing Triage Note : Reason for Visit Additional Info, 05/15/10 21:33 Reason for Visit Additional Info injured nose with basketball . Health History ED ED Cardiac Medical History: No ED Dyslipidemia: No ED Respiratory Medical History: No ED Neurological Medical History: No ED Diabetes Medical History: No ED High Blood Pressure Medical History: No ED Currently : No ED LMP: No ED Previous Surgeries: Yes, ankle ED Other Medical Hx: No ED Smoking Hx: No Exposed to Second Hand Smoke: No ED Tetanus < 5 years: No History of Present Illness The patient is a 20 years old Female who presents with facial injury. The occurrence was since 05/15/10 19:00:00. Location of pain: nose. Location of bleeding: none. The degree of pain is moderate. The degree of bleeding is negative. The mitigating factor is negative. The mechanism of injury was a direct blow (Ran into a girl's shoulder while playing basketball.). The location where the accident occurred was school. No LOC. Pt. says her pain is much better after taking a Lortab shortly after the injury happened.. Associated Symptoms Constitutional symptoms: Negative. Eye symptoms: Negative ENT: Nose pain. Respiratory symptoms: Negative. Nausea: Negative. Vomiting episodes: Negative. Genitourinary symptoms: Negative Neurologic symptoms: Negative Review of Systems Cardiovascular symptoms: Negative. Psychiatric symptoms: Negative. Other significant review of systems All other systems reviewed and otherwise negative. All systems reviewed as documented in chart. Past Medical/ Family/ Social History Medical history: Reviewed as documented in chart. Surgical history: Reviewed as documented in chart. Family history: Reviewed as documented in chart. Social history: Reviewed as documented in chart. Physical Examination General appearance: No acute distress. Skin: Within normal limits. Head: Within normal limits. Extremity: Normal range of motion. Normal tone. Eye: Within normal limits. Pupils equal, round, and reactive to light. Extraocular movements intact. Ears, nose, mouth and throat: Nose/nares: minimal swelling to bridge of nose, no deformity, no bleeding, no septal hematoma, minimal tenderness Neck: Within normal limits. Heart: Within normal limits. Respiratory: Within normal limits. Lungs clear to auscultation bilaterally. Respirations nonlabored. Neurological: Alert and oriented times 3. No focal neuro deficits. Medical Decision Making Clinical work-up/Interpretation X-ray: nasal bones, Interpretation by Radiologist, minimally angulated, nondisplaced distal nasal bone fracture. Notes: Pt. declines pain medication after initial evaluation in the ED., Pt. instructed to not take any other medications containing tylenol or acetaminophen while taking the medication prescribed today., Pt. appears well. Pt. will f/u with PCP. Family instructed to bring pt. back to the ED immediately for any new or worsening symptoms. Impression and Plan Diagnosis Head injury 959.01 (ICD9 959.01, Discharge, Emergency medicine, Medical) [id number], [facility]) Discharge plan Condition: Improved, Stable. Prescriptions: PowerOrders. Pharmacy: acetaminophen-hydrocodone 325 mg-5 mg oral tablet (Ordered): See Instructions, 1 -2 tabs po q 6 hours prn(not to exceed 4000 mg acetaminophen per day), 15 Tab, PRN Patient was given the following educational materials: HEAD INJURY (no wake-up) , Adult, NASAL FRACTURE, confirmed. Follow up with: Follow up with your primary care physician next week. Within 3 to 5 days Return if worsening. Counseled: Patient, Family, Regarding diagnosis, Regarding treatment plan, Regarding diagnostic results, Regarding prescription. Emergency Medical Treatment and Active Labor Act/Prudent layperson: Emergency Medical Condition Exists at Discharge: Resolved. 05/16/2010 [facility] Office/Clinic Notes Office/Clinic Notes <div><p style="margin:0pt; text-align:center"><span style= "background-color:#ffffff; font-family:[place]; font-size:10pt; font-weight:bold"> [facility]</span></p><p style="margin:0pt; text-align: center"><span style="background-color:#ffffff; font-family:[place]; font-size:10pt ; font-weight:bold">[address] [facility]</span></p><p style="margin:0pt; text -align:center"><span style="background-color:#ffffff; font-family:[place]; font- size:10pt; font-weight:bold">[place] [address]</span></p><p style="margin: 0pt; text-align:center"><span style="background-color:#ffffff; font-family:[place] ; font-size:10pt; font-weight:bold">[phone] </span></p><p style="margin:0pt; text-align:center"><span style="font-family:[place]; font-size: 10pt; font-weight:bold"></span></p><p style="margin:0pt"><span style= "background-color:#ffffff; font-family:[place]; font-size:10pt">PATIENT: SANIA CARBONE</span></p><p style="margin:0pt"><span style="background-color:# ffffff; font-family:[place]; font-size:10pt">MR #: [id number]</span></p><p style= "margin:0pt"><span style="background-color:#ffffff; font-family:[place]; font -size:10pt"> </span></p><p style="margin:0pt"><span style= "background-color:#ffffff; font-family:[place]; font-size:10pt">: 1989</span></p><p style="margin:0pt"><span style="background-color:#ffffff; font -family:[place]; font-size:10pt">DATE SEEN: 05/19/2010</span></p><p style="margin: 0pt"><span style="font-family:[place]; font-size:10pt"></span></p><p style= "margin:0pt"><span style="background-color:#ffffff; font-family:[place]; font-size :10pt; font-weight:bold">Chief Complaint</span></p><p style="margin:0pt"><span style="background-color:#ffffff; font-family:[place]; font-size:10pt">patient here today for a ER fol</span><span style="background-color:#ffffff; font-family :[place]; font-size:10pt">l</span><span style="background-color:#ffffff; font- family:[place]; font-size:10pt">ow up on fractured nose, while playing basketball hit a shoulder</span></p><p style="margin:0pt"><span style="background-color:# ffffff; font-family:[place]; font-size:10pt">Additional Information: questions about acne on her chest</span><span style="background-color:#ffffff; font-family :[place]; font-size:10pt">, </span><span style="background-color:#ffffff; font- family:[place]; font-size:10pt">comes and goes, just seems to be worse during sports season</span></p><p style="margin:0pt"><span style="font-family:[place] ; font-size:10pt"></span></p><p style="margin:0pt"><span style="font-family: [place]; font-size:10pt"></span></p><p style="margin:0pt"><span style="background -color:#ffffff; font-family:[place]; font-size:10pt; font-weight:bold">History of Present Illness</span></p><p style="margin:0pt"><span style="background-color :#ffffff; font-family:[place]; font-size:10pt">F</span><span style="background- color:#ffffff; font-family:[place]; font-size:10pt">ractured her nose. Has a lot of pain, tenderness in it. 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 Had minimally displaced nonangulated fracture. Is having snoring, congestion problems. </span></p><p style="margin:0pt"><span style="font-family:[place]; font-size:10pt"></span></p><p style="margin:0pt">< span style="background-color:#ffffff; font-family:[place]; font-size:10pt; text- decoration:underline"> Assessment</span></p><p style="margin:0pt"><span style= "background-color:#ffffff; font-family:[place]; font-size:10pt">Cognitive Status: Independent, decisions consistent/reasonable</span></p><p style="margin:0pt">< span style="background-color:#ffffff; font-family:[place]; font-size:10pt"> Intensity: 0</span></p><p style="margin:0pt"><span style="font-family:[place]; font-size:10pt"></span></p><p style="margin:0pt"><span style="background-color: #ffffff; font-family:[place]; font-size:10pt; font-weight:bold">Review of Systems </span></p><p style="margin:0pt"><span style="font-family:[place]; font-size:10pt "></span></p><p style="margin:0pt"><span style="font-family:[place]; font-size: 10pt"></span></p><p style="margin:0pt"><span style="background-color:#ffffff; font-family:[place]; font-size:10pt; font-weight:bold">Allergies</span></p><p style="margin:0pt"><span style="background-color:#ffffff; font-family:[place]; font-size:10pt">NKA</span></p><p style="margin:0pt"><span style="font- family:[place]; font-size:10pt"></span></p><p style="margin:0pt"><span style= "background-color:#ffffff; font-family:[place]; font-size:10pt; font-weight:bold"> Current Medications</span></p><p style="margin:0pt"><span style="background- color:#ffffff; font-family:[place]; font-size:10pt">acetaminophen-hydrocodone 325 mg-5 mg oral tablet (acetaminophen-hydrocodone), 1-2 tabs po q 6 hours prn(not to exceed 4000 mg acetaminophen per day), PRN,</span></p><p style="margin:0pt">< span style="font-family:[place]; font-size:10pt"></span></p><p style="margin:0pt "><span style="background-color:#ffffff; font-family:[place]; font-size:10pt; font -weight:bold">Problems and Past Medical History</span></p><p style="margin:0pt"> <span style="background-color:#ffffff; font-family:[place]; font-size:10pt; text- decoration:underline">Active</span></p><p style="margin:0pt"><span style= "background-color:#ffffff; font-family:[place]; font-size:10pt">Allergic Rhinitis , Seasonal or NOS</span></p><p style="margin:0pt"><span style="background-color: #ffffff; font-family:[place]; font-size:10pt">Nasal Fracture</span></p><p style= "margin:0pt"><span style="background-color:#ffffff; font-family:[place]; font-size :10pt">Asthma, unspecified</span></p><p style="margin:0pt"><span style="font- family:[place]; font-size:10pt"></span></p><p style="margin:0pt"><span style= "background-color:#ffffff; font-family:[place]; font-size:10pt; font-weight:bold"> Family History</span></p><p style="margin:0pt"><span style="background-color: #ffffff; font-family:[place]; font-size:10pt; text-decoration:underline"> Neurological Peds Health History</span></p><p style="margin:0pt"><span style="background-color:#ffffff; font-family:[place]; font-size:10pt">Frequent Headaches Medical History: Mother, Sibling, MIGRAINES</span></p><p style="margin :0pt"><span style="background-color:#ffffff; font-family:[place]; font-size:10pt; text-decoration:underline">Oncologic Peds Health History</span></p><p style= "margin:0pt"><span style="background-color:#ffffff; font-family:[place]; font-size :10pt">Lymphoma Medical History: Grandparents, CERVICAL CA.</span></p><p style= "margin:0pt"><span style="background-color:#ffffff; font-family:[place]; font-size :10pt">Oncologic, Other Medical History: Grandparents, bladder</span></p><p style="margin:0pt"><span style="background-color:#ffffff; font-family:[place]; font-size:10pt; text-decoration:underline">General Peds Health History</ span></p><p style="margin:0pt"><span style="background-color:#ffffff; font- family:[place]; font-size:10pt">Allergy Peds Health History: Father, Sibling</span ></p><p style="margin:0pt"><span style="background-color:#ffffff; font-family :[place]; font-size:10pt; text-decoration:underline">Cardiovascular Peds History</ span></p><p style="margin:0pt"><span style="background-color:#ffffff; font- family:[place]; font-size:10pt">Congenital Heart Disease Ped Health Hx: Grandparents</span></p><p style="margin:0pt"><span style="background-color:# ffffff; font-family:[place]; font-size:10pt">High Blood Pressure Medical History: Grandparents</span></p><p style="margin:0pt"><span style="background-color:# ffffff; font-family:[place]; font-size:10pt; text-decoration:underline"> Respiratory Peds Health History</span></p><p style="margin:0pt"><span style= "background-color:#ffffff; font-family:[place]; font-size:10pt">Asthma Medical History: Sibling</span></p><p style="margin:0pt"><span style="background-color:# ffffff; font-family:[place]; font-size:10pt">Respiratory, Other Medical History: Mother, SLEEP APNEA</span></p><p style="margin:0pt"><span style="background- color:#ffffff; font-family:[place]; font-size:10pt; text-decoration:underline"> Gastrointestinal Ped Health History</span></p><p style="margin:0pt"><span style= "background-color:#ffffff; font-family:[place]; font-size:10pt">Gastrointestinal, Other Medical History: Mother, IBS</span></p><p style="margin:0pt"><span style= "background-color:#ffffff; font-family:[place]; font-size:10pt; text-decoration: underline">Genitourinary Peds Health History</span></p><p style="margin:0pt">< span style="background-color:#ffffff; font-family:[place]; font-size:10pt"> Genitourinary, Other Medical History: Sibling, VURD</span></p><p style="margin: 0pt"><span style="background-color:#ffffff; font-family:[place]; font-size:10pt; text-decoration:underline">Musculoskeletal Peds Health Hx</span></p><p style= "margin:0pt"><span style="background-color:#ffffff; font-family:[place]; font-size :10pt">Musculoskeletal, Other Medical History: Sibling, JRA</span></p><p style= "margin:0pt"><span style="background-color:#ffffff; font-family:[place]; font-size :10pt; text-decoration:underline">Immunologic Past Medical History</span></p><p style="margin:0pt"><span style="background-color:#ffffff; font-family:[place]; font-size:10pt">Immunologic, Other Medical History: SCLERODERMA</span></p><p style="margin:0pt"><span style="background-color:#ffffff; font-family:[place] ; font-size:10pt; text-decoration:underline">Endocrine/Metabolic Past Med Hx</ span></p><p style="margin:0pt"><span style="background-color:#ffffff; font- family:[place]; font-size:10pt">Diabetes Medical History: Grandparents</span></p>< p style="margin:0pt"><span style="font-family:[place]; font-size:10pt"></ span></p><p style="margin:0pt"><span style="background-color:#ffffff; font- family:[place]; font-size:10pt; font-weight:bold">Procedure History</span></p><p style="margin:0pt"><span style="background-color:#ffffff; font-family:[place] ; font-size:10pt">X 2 SURGERIES LT ANKLE</span></p><p style="margin:0pt"><span style="font-family:[place]; font-size:10pt"></span></p><p style="margin:0pt">< span style="background-color:#ffffff; font-family:[place]; font-size:10pt; font- weight:bold">Social History</span></p><p style="margin:0pt"><span style= "background-color:#ffffff; font-family:[place]; font-size:10pt">Caffeine Use: Current</span></p><p style="margin:0pt"><span style="background-color:#ffffff; font-family:[place]; font-size:10pt">Caffeine Type: Soda</span></p><p style= "margin:0pt"><span style="background-color:#ffffff; font-family:[place]; font-size :10pt">Caffeine Frequency: Weekly</span></p><p style="margin:0pt"><span style= "background-color:#ffffff; font-family:[place]; font-size:10pt">Recreational Drug Use: Denies</span></p><p style="margin:0pt"><span style="background-color:# ffffff; font-family:[place]; font-size:10pt">Alcohol Use: Not applicable due to age</span></p><p style="margin:0pt"><span style="background-color:#ffffff; font- family:[place]; font-size:10pt">Tobacco Use: Denies</span></p><p style="margin:0pt "><span style="font-family:[place]; font-size:10pt"></span></p><p style="margin: 0pt"><span style="background-color:#ffffff; font-family:[place]; font-size:10pt; font-weight:bold">Physical Examination</span></p><p style="margin:0pt"><span style="background-color:#ffffff; font-family:[place]; font-size:10pt; text- decoration:underline">TEMP </span><span style="width:25.46pt; text-indent:0pt; display:inline-block; -ke-eseczaw-sfzbt:left; -bu-qfydtal-qqm:55pt"></span>< span style="background-color:#ffffff; font-family:[place]; font-size:10pt; text- decoration:underline">BP </span><span style="width:36.44pt; text-indent:0pt; display:inline-block; -jl-ihgzksx-islfi:left; -qq-kzsclze-mwj:105pt"></span>< span style="background-color:#ffffff; font-family:[place]; font-size:10pt; text- decoration:underline">Pulse </span><span style="width:27.08pt; text-indent:0pt; display:inline-block; -ug-zgprigl-rluaf:left; -ci-mztqgva-owx:155pt"></span>< span style="background-color:#ffffff; font-family:[place]; font-size:10pt; text- decoration:underline">RR </span><span style="width:35.18pt; text-indent:0pt ; display:inline-block; -yr-spwnlqb-hfyei:left; -ij-qtpzywy-bln:205pt"></span>< span style="background-color:#ffffff; font-family:[place]; font-size:10pt; text- decoration:underline">MAP </span><span style="width:26.43pt; text-indent:0pt; display:inline-block; -vd-mkebeiu-vnfep:left; -fs-ffavnes-pri:255pt"></span>< span style="background-color:#ffffff; font-family:[place]; font-size:10pt; text- decoration:underline">O2 Sat </span></p><p style="margin:0pt"><span style= "background-color:#ffffff; font-family:[place]; font-size:10pt">37.0</span><span style="width:37.79pt; text-indent:0pt; display:inline-block; -jq-napymuf-idcur: left; -uo-gcqgzna-eup:55pt"></span><span style="background-color:#ffffff; font- family:[place]; font-size:10pt">110/70</span><span style="width:20.94pt; text -indent:0pt; display:inline-block; -fl-dfjmksv-agjyi:left; -kw-xvrplgx-zyq:105pt "></span><span style="background-color:#ffffff; font-family:[place]; font-size: 10pt">71</span><span style="width:40pt; text-indent:0pt; display:inline-block; - lm-nmtsrtw-rpgpy:left; -pk-dzuelrx-oxm:155pt"></span><span style="background- color:#ffffff; font-family:[place]; font-size:10pt">18</span><span style="width: 40pt; text-indent:0pt; display:inline-block; -sn-xvxachi-cpimw:left; -aw-tabstop -pos:205pt"></span><span style="background-color:#ffffff; font-family:[place]; font-size:10pt">83.33</span><span style="width:27.79pt; text-indent:0pt; display :inline-block; -eh-fsfpppf-zuraq:left; -qy-gqfstyk-isw:255pt"></span><span style ="background-color:#ffffff; font-family:[place]; font-size:10pt">99</span></p>< p style="margin:0pt"><span style="font-family:[place]; font-size:10pt"></span></p ><p style="margin:0pt"><span style="font-family:[place]; font-size:10pt"></span>< /p><p style="margin:0pt"><span style="background-color:#ffffff; font-family: [place]; font-size:10pt; text-decoration:underline">Weight </span><span style= "width:94.02pt; text-indent:0pt; display:inline-block; -zu-bktizvo-netvq:left; - sc-zmvtqal-zcm:125pt"></span><span style="background-color:#ffffff; font-family: [place]; font-size:10pt; text-decoration:underline">Height </span><span style ="width:36.19pt; text-indent:0pt; display:inline-block; -zg-ufyzoiv-txxrb:left; -bt-gwqfsge-ngc:190pt"></span><span style="background-color:#ffffff; font-family :[place]; font-size:10pt; text-decoration:underline">BMI </span><span style="width :29.8pt; text-indent:0pt; display:inline-block; -sj-zqsieuh-dnvse:left; -aw- tabstop-pos:240pt"></span><span style="background-color:#ffffff; font-family: [place]; font-size:10pt; text-decoration:underline">BSA </span></p><p style= "margin:0pt"><span style="background-color:#ffffff; font-family:[place]; font-size :10pt">65.200 kg (143.74 lbs)</span><span style="width:39.47pt; text-indent:0pt ; display:inline-block; -xa-aidiorg-rwxik:left; -dt-meadjwk-ysq:125pt"></span>< span style="width:65pt; text-indent:0pt; display:inline-block; -yp-zfxnbve-knuzg :left; -ae-dhuozev-bvo:190pt"></span><span style="width:50pt; text-indent:0pt; display:inline-block; -qi-cnwogsn-lxqsp:left; -ls-sedcphy-rof:240pt"></span></p> <p style="margin:0pt"><span style="font-family:[place]; font-size:10pt"></ span></p><p style="margin:0pt"><span style="font-family:[place]; font-size:10pt"> </span></p><p style="margin:0pt"><span style="background-color:#ffffff; font- family:[place]; font-size:10pt"> Vital signs: Per chart. General: Well-hydrated, well-developed, well-nourished and in no acute distress. HEENT: Neck supple, no nodes; ears clear; TMs normal; eyes - conjunctivae clear, EOMI, PERRLA, fundi benign. Pharynx: Tongue and uvula midline, no exudate or injection. Chest: Respirations unlabored, lungs are clear. Heart: Regular rate and rhythm without murmur. Abdomen: Soft, nontender, no masses, organomegaly, guarding or rebound. Bowel sounds positive. Extremities: Nontender without edema. Pulses are 2+ and equal. Neurologic: Cranial nerves are intact, no motor or sensory deficits. Cerebellar function is normal. Mental status: Alert, oriented x3, cooperative. Skin: Without rash.</span></p><p style="margin:0pt"><span style="font-family: [place]; font-size:10pt"></span></p><p style="margin:0pt"><span style="background -color:#ffffff; font-family:[place]; font-size:10pt; font-weight:bold">Impression< /span></p><p style="margin:0pt"><span style="background-color:#ffffff; font- family:[place]; font-size:10pt">Nasal Fracture (802.0)</span></p><p style="margin: 0pt"><span style="font-family:[place]; font-size:10pt"></span></p><p style= "margin:0pt"><span style="font-family:[place]; font-size:10pt"></span></p><p style="margin:0pt"><span style="font-family:[place]; font-size:10pt"></span></p>< p style="margin:0pt"><span style="background-color:#ffffff; font-family:[place]; font-size:10pt; font-weight:bold">Plan</span></p><p style="margin:0pt"><span style="background-color:#ffffff; font-family:[place]; font-size:10pt; font-weight: bold">Medication changes this visit:</span></p><p style="margin:0pt"><span style ="background-color:#ffffff; font-family:[place]; font-size:10pt; text-decoration: underline">New</span></p><p style="margin:0pt"><span style="background-color:# ffffff; font-family:[place]; font-size:10pt">Doxy-Caps 100 mg oral tablet, 100 mg= 1 Tab, BID, 10 Day(s), Quantity: 20, Refills: 0</span></p><p style="margin:0pt"> <span style="background-color:#ffffff; font-family:[place]; font-size:10pt"> Flonase 0.05 mg/inh nasal spray, 2 [place], Q24H, Quantity: 3, Refills: 3</span></ p><p style="margin:0pt"><span style="font-family:[place]; font-size:10pt"></span> </p><p style="margin:0pt"><span style="background-color:#ffffff; font-family: [place]; font-size:10pt">Put on Doxycycline, 100 mg b.i.d. x 10 days; use Afrin, also Flonase, 2 puffs b.i.d. Get nasal protective device. She can go back. I think it is so minimal that I would not recommend any intervention.</span></p>< p style="margin:0pt"><span style="font-family:[place]; font-size:10pt"> </ span></p><p style="margin:0pt"><span style="font-family:[place]; font-size:12pt"> </span></p><p style="margin:0pt"><span style="font-family:[place]; font-size:12pt "></span></p><p style="margin:0pt"><span style="background-color:#ffffff; font- family:[place]; font-size:10pt">Risks, benefits of medications and/or treatment options explained. Alternatives and expected outcome discussed. Patient and/or family verbalized understanding. Patient instructed to follow up sooner than directed if new symptoms develop or current symptoms worsen. Otherwise follow up prn.</span></p><p style="margin:0pt"><span style="font-family:[place]; font- size:10pt"></span></p><p style="margin:0pt"><span style="font-family:[place]; font-size:10pt"></span></p><p style="margin:0pt"><span style="background-color: #ffffff; font-family:[place]; font-size:10pt">TR:</span><span style="width:14.48pt ; text-indent:0pt; display:inline-block; -pg-lbuikwe-eomfk:left; -fz-iijlnoj-mcl :30pt"></span><span style="background-color:#ffffff; font-family:[place]; font- size:10pt">WILSONB</span></p><p style="margin:0pt"><span style="background- color:#ffffff; font-family:[place]; font-size:10pt">DD:</span><span style="width: 12.63pt; text-indent:0pt; display:inline-block; -pj-fkxgtkm-rpaka:left; -aw- tabstop-pos:30pt"></span><span style="background-color:#ffffff; font-family: [place]; font-size:10pt">12/</span><span style="background-color:#ffffff; font- family:[place]; font-size:10pt"> 1611 </span></p><p style="margin:0pt">< span style="background-color:#ffffff; font-family:[place]; font-size:10pt">DT:</ span><span style="width:13.31pt; text-indent:0pt; display:inline-block; -[employer]stop-align:left; -ms-stdlcwb-xsh:30pt"></span><span style="background-color:# ffffff; font-family:[place]; font-size:10pt">05/26/2010 07:42</span></p><p style= "margin:0pt"><span style="font-family:[place]; font-size:10pt"></span></p>< p style="margin:0pt"><span style="background-color:#ffffff; font-family:[place]; font-size:10pt">JJ#:</span><span style="width:29.54pt; text-indent:0pt; display :inline-block"></span><span style="background-color:#ffffff; font-family:[place]; font-size:10pt">9</span><span style="background-color:#ffffff; font-family:[place] ; font-size:10pt">05</span><span style="background-color:#ffffff; font-family: [place]; font-size:10pt">4</span><span style="background-color:#ffffff; font- family:[place]; font-size:10pt">97</span></p></div> [Electronically Signed on 05.26.2010 08:12 am]
Maria Teresa Galicia, DO
</br> 05/26/2010 [Electronically Signed on 05.26.2010 08:12 am] Maria Teresa Galicia, DO [facility] Amb Nurs Intake w Hx Event Amb Nurs Intake w Hx Event 12/18/2011 [facility] Level of Functioning Grid-Clinic Level of Functioning Grid-Clinic 12/18/2011 [facility] Amb Nurs Intake Event Amb Nurs Intake Event 2009 [facility] Amb Nurs Intake w Hx Event Amb Nurs Intake w Hx Event 11/14/2010 [facility] ed admission details event form ed admission details event form 05/15/2010 [facility] Amb Nurs Intake Event Amb Nurs Intake Event 2010 [facility] Amb Nurs Intake Event Amb Nurs Intake Event 2009 [facility] Vital Signs Vital Sign Value Date Comments Source Temperature Oral 36.2 DegC [facility] Peripheral Pulse Rate 69 bpm 05/15/2010 [facility] Respiratory Rate 16 br/min [facility] Systolic Blood Pressure 136 mmHg 05/15/2010 [facility] Diastolic Blood Pressure 62 mmHg 05/15/2010 [facility] Mean Arterial Pressure. 86.67 mmHg 05/15/2010 [facility] Oxygen Saturation 100 % 05/15 [facility] Weight 64.800 kg 11/19/2010 [facility] Height 169.2 cm 11/19/2010 [facility] Current BMI 23 "" 11/19/2010 [facility] Encounters Location Location Details Encounter Type Encounter Number Reason For Visit Attending Provider ADM Date [facility] [id number] WELLNESS EXAM/FORM SILVIA CLARK 11/01/2009 [facility]01/[facility] [id number] ODYNOPHGIA TY JEAN 11/20/2010 11/20/[address] [id number] ER FOLLOW UP-FRACTURED NOSE Maria Teresa Galicia 05/19/[address] [id number] cyst right axillia Maria Teresa Galicia 06/07/[address] [id number] LUMP UNDER EAR/TERE UNDER ONE ARM PIT Maria Teresa Galicia 06/02/2013 Active [facility] [id number] REMOVAL OF MOLE-BACK AND CHIN MARIA TERESA GALICIA 2011 Active [facility] [id number] SORE THROAT/ HEADACHE / SWOLLEN LYMPH NODES EMANUEL PEDRAZA 03/01/[address] [id number] SINUS INFECTION/TEMP Maria Teresa Galicia 01/17/2010 Active [facility] [id number] ACNE JUDITH ANDREA 09/18/2010 Active [place] [address] [facility] [id number] CYST BEHIND EAR- WANTING IT REMOVED Maria Teresa Galicia 10/26/[address] [id number] FEVER/SORE THROAT Maria Teresa Galicia [facility]2010 [facility] [id number] Maria Teresa Galicia 12/18/2011 12/18/2011 Active [facility] [id number] SINUS INFECTION/COUGH Maria Teresa Galicia 04/22/2010 Active [facility] [id number] throat issues and sinus issues AVA WALTER 03/17/2011 Active [facility] [place] [id number] [facility] [id number] SORE THROAT/CONGESTION Maria Teresa Galicia 11/14/2010 Active [facility] Emergency Room [id number] NOSE PAIN CHARLIE REYNA 200905/16/2010 Active [facility] Procedures Procedure Code Date Perfomer Comments Source
--- NOTE | 2016-06-09 08:52 | Diagnostic Imaging Report ---
PROCEDURE: US abdomen complete. TECHNIQUE: Multiple real-time grayscale images were obtained over the abdomen in various projections. INDICATION: Right lower quadrant protrusion and tenderness. COMPARISON: None. DISCUSSION: Sonographic evaluation of the abdomen was performed. The liver appears normal in echotexture and size. No hepatic mass is identified. The gallbladder appears normal without evidence of cholelithiasis, wall thickening, or pericholecystic fluid. No evidence of intra or extrahepatic biliary duct dilatation. The common bile duct is normal measuring 0.3 cm. The pancreas appears normal as visualized. The spleen appears normal in echotexture and size measuring 11 cm. The visualized aorta and IVC appear within normal limits. The bilateral kidneys appear normal in echotexture and size without evidence of hydronephrosis or renal mass. The right kidney measures 11.1 cm. The left kidney measures 10.2 cm. There is no ascites or abnormal bowel loops identified. No sonographic Sexton sign was reported. No abnormality is identified within the right lower quadrant body wall in the region of protrusion. IMPRESSION: Unremarkable abdominal ultrasound. No body wall abnormality or hernia is identified within the right lower quadrant. Dictated by: Dictated on workstation # [id number]
== END ==
LOC: RAD 08:03
PROVIDERS: ATTEND Nurse Practitioner Family
DX: R10.31 Right lower quadrant pain (principal)
CPT/HCPCS: 76700